=== PATIENT | female | born 1960 | race Caucasian/White ===

== ENCOUNTER 2020-04-27 07:25 | Emergency (ER) | payer MEDICARE, SELFPAY ==
[2020-04-27] VITALS (14 sets, daily range): BP systolic 101–165; BP diastolic 65–101; PULSE 100; RESP 9–29; TEMP 36.7; O2SAT 91–100
--- NOTE | ~2020-04-27 | XR_ITS ---
EXAMINATION: XR chest 2V DATE: 04/27/2020 08:14 INDICATION: Fall. Weakness. TECHNIQUE: frontal and lateral views of the chest were obtained. COMPARISON: Chest radiograph dated 05/06/2017 FINDINGS: The lungs remain clear with no focal airspace opacities, pulmonary edema, pleural effusion or pneumot horax. The cardiomediastinal silhouette is normal. Focal midthoracic kyphosis centered at a chronic m idthoracic burst fracture with complete anterior vertebral body height loss. IMPRESSION: 1. No acute cardiopulmonary disease. Reviewed, dictated and finalized at location A. MATIC DATA PROCESSING PLANNER
--- NOTE | ~2020-04-27 | CT_ITS ---
EXAMINATION: CT brain wo con DATE: 04/27/2020 08:10 INDICATION: Fall. Weakness. TECHNIQUE: Computed tomography (CT) of the head was performed without intravenous contrast. Sagittal and coronal reconstructions were performed. The mA was adjusted according to patient size. Iterative reconstruction technique was employed. The dose-length product was 681.00 mGy-cm. COMPARISON: head CT dated 11/01/2018 FINDINGS: No fracture. No acute intracranial hemorrhage, acute infarction or abnormal extra axial fluid collect ion. There is mild scattered white matter hypoattenuation consistent with chronic small vessel ischem ic disease. Ventricles are normal and symmetric. No mass/mass effect. Chronic opacification of the le ft sphenoid sinus with thickened sclerotic [place] consistent with chronic sinusitis. There is some muc osal thickening posteriorly in the bilateral ethmoid sinuses. The orbits and mastoid air cells are no rmal. IMPRESSION: 1. No fracture or acute intracranial process. 2. Mild scattered white matter hypoattenuation consistent with chronic small vessel ischemic disease. Reviewed, dictated and finalized at location A. ICAL DAMAGE APPRAISER IMPRESSION: 1. No fracture or acute intracranial process. 2. Mild scattered white matter hypoattenuation consistent with chronic small ve ssel ischemic disease.
--- NOTE | ~2020-04-27 | CT_ITS ---
EXAMINATION: CT cervical spine wo con, CT thoracic lumbar wo con DATE: 04/27/2020 08:11 INDICATION: Fall. Weakness. TECHNIQUE: 1. Computed tomography (CT) of the cervical spine was performed without intravenous contrast. Automat ed exposure control and iterative reconstruction technique were employed. The dose-length product was 252.53 mGy-cm. 2. CT of the thoracic spine was performed without intravenous contrast. Automated exposure control an d iterative reconstruction technique were employed. The dose-length product was 1697.25 mGy-cm. COMPARISON: Several spine CT dated 11/01/2018, two-view chest radiograph dated 05/06/2017 and lumbar spi ne MR dated 09/26/2010 FINDINGS: Cervical spine: Mild levocurvature at the lower cervical spine, previously and mild dextrocurvature suggesting this i s positional. Sagittal alignment is normal. Vertebral body and disc heights are normal. No fracture. No significant interval change in mild cervical spondylosis with no central canal stenosis. See prior report for level by level analysis. Cervical soft tissues are unremarkable. Thoracic spine: Mild thoracic levocurvature. Focal kyphosis centered at a chronic T8 burst fracture with essentially complete anterior to central vertebral body height loss. There is 60% height loss along the posterior wall which is also retropulsed approximately 4 mm resulting in mild central canal stenosis at this l evel. These findings do not appear significantly changed when compared with the chest radiograph from 3 years prior. Also unchanged is a less severe T12 compression fracture with 20% vertebral body heig ht loss anteriorly and more prominent central endplate depression resulting in 40% central vertebral body height loss. No acute fractures. Disc heights are normal. There is moderate bilateral neural for aminal stenosis at T8-T9 resulting from the T8 burst fracture. Mild neural foraminal stenosis bilater ally at a few additional levels in the mid thoracic spine. Paravertebral soft tissues are unremarkabl e. Mild discoid atelectasis in the right lower lobe. No other evident lung disease, pleural effusion or pneumothorax. Lumbar spine: Alignment is normal. There are multiple lumbar fractures which are new since 2010 but with chronic ap pearance. No acute appearing fractures identified. These include a compression fracture with 20% ante rior vertebral body height loss at L2 and L3, L4 and L5 burst fractures with central superior endplat e depression resulting in 20% central vertebral body height loss at each level. There is 2-3 mm retro pulsion of the cephalad aspect of the posterior salinas of L3 and L4 and 3 mm retropulsion of the cepha lad aspect of the posterior wall of L5. This results in mild central canal stenosis at each of these levels. There is also multilevel mild bilateral neural foraminal stenosis. A few nonobstructing left renal stones, the largest measuring 5 mm. Cholecystectomy clips at the gallbladder fossa. Nonspecific high attenuation material at the tip of the cecum. A couple surgical clips in the left hemipelvis. IMPRESSION: 1. Mild spondylosis throughout the cervical, thoracic and lumbar spine with several chronic compressi on and burst fractures in the thoracic and lumbar spine is detailed above. No acute osseous abnormali ty. Reviewed, dictated and finalized at location A. ER IMPRESSION: 1. Mild spondylosis throughout the cervical, thoracic and lumbar spine with sev eral chronic compression and burst fractures in the thoracic and lumbar spine i s detailed above. No acute osseous abnormality.
--- NOTE | 2020-04-27 07:30 | ED.FALL ---
HPI - Fall General Chief Complaint: Fall Stated Complaint: weakness Time Seen by Provider: 04/27/20 07:30 Source: patient and EMS Mode of arrival: EMS Limitations: no limitations History of Present Illness HPI Narrative: Patient is a 59-year-old female with a history of severe anxiety, hypothyroidism, chronic anemia, HIV medicine physicians at [facility], who presents for evaluation of fall 2 days ago and subsequent weakness. Patient states she fell while ascending some steps a couple of days ago, hitting her head on the ground, and since has had headache, neck pain and arm weakness. 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 Patient states her significant pain when she tries to move her arms. She has been able to ambulate at home over the past couple of days but due to pain becoming so severe today wanted to be evaluated thus called EMS who brought her to our facility. Patient states her HIV is managed at [facility] and she has an undetectable viral load. She denies any chest pain, abdominal pain, nausea or vomiting. She does report some lower back pain and neck pain that is dull and aching in nature and worse with movement. She denies any taking any anticoagulation. Related Data Allergies Allergy/AdvReac Type Severity Reaction Status Date / Time latex Allergy Mild Rash Verified 04/27/20 07:41 Sulfa (Sulfonamide Allergy Mild HIVES, RASH Verified 04/27/20 07:41 Antibiotics) morphine Allergy Unknown Nausea and Verified 04/27/20 07:41 Vomiting Review of Systems Review of Systems: Narrative: CONSTITUTIONAL: Denies fever EYES: Denies visual changes, redness, or discharge. ENT: Denies rhinorrhea, congestion CARDIOVASCULAR: Denies chest pain RESPIRATORY: Denies cough or dyspnea. GASTROINTESTINAL: Denies abdominal pain, nausea, vomiting, or diarrhea. GENITOURINARY: Denies dysuria or hematuria. SKIN: Denies rash or itching. MUSCULOSKELETAL: Denies back pain, joint pain, or myalgia. NEUROLOGIC: Reports headache and feeling diffusely weak PSYCHIATRIC: Reports anxiety PMFSH Past Medical History Medical History (Updated 04/27/20 @ 10:29 by Rosa Sandoval MD) Anemia Anxiety Arthritis HIV (human immunodeficiency virus infection) Hypothyroidism Melena Migraine headache Nephrolithiasis Surgical History Surgical History (Updated 04/27/20 @ 07:43 by Rosa Sandoval MD) H/O: hysterectomy History of appendectomy Hx of cholecystectomy Social History Social History (Updated 04/27/20 @ 07:43 by Rosa Sandoval MD) Smoking status: Unknown if ever smoked Alcohol intake: never Substance use: never Gender identity (if verbalized by the patient): Female Exam Narrative: Exam Narrative: Nursing note and vitals reviewed. CONSTITUTIONAL: The patient appears well-developed and well-nourished. No distress. HEAD: Normocephalic and atraumatic. EYES: PERRL, EOMI, normal conjunctiva, anicteric EARS: External ears clear bilaterally, no hemotympanum MOUTH: OP clear, no erythema, exudates NECK: midline trachea, supple, FROM. Positive midline cervical spinal tenderness without step-offs or deformities. Tenderness of bilateral trapezius muscles. CARDIOVASCULAR: Normal rate, regular rhythm, normal heart sounds and intact distal pulses. No murmurs, rubs, gallops. PULMONARY: Effort normal and breath sounds normal. No respiratory distress. The patient has no wheezes, rales, rhonchi. No chest wall tenderness, crepitus or ecchymoses. ABDOMINAL: Soft. Nontender, nondistended. No palpable masses Thorax: Positive midline thoracic and lumbar tenderness, no step-offs or deformities, no ecchymoses EXTREMITIES: Patient has spontaneous movement in all extremities. -RUE: No deformity. Decreased range of motion at the shoulder, elbow and wrist due to pain. Normal range of motion in the hand. Sensation intact M/U/R. Pulse 2+. Heel Seat Flap Stapler strength 5 out of 5. -LUE: No deformity. Decreased range
--- NOTE | 2020-04-27 07:35 | ECG_ITS ---
Measurements Intervals [place] Rate: 94 P: 66 MS: 162 QRS: 39 QRSD: 73 T: 60 QT: 338 QTc: 424 Interpretive Statements SINUS RHYTHM EARLY PRECORDIAL R/S TRANSITION LOW QRS VOLTAGE IN PRECORDIAL LEADS BASELINE ARTIFACT- I, II, III, AVR, AVL, AVF, V5-V6 BORDERLINE ECG Electronically Signed On 04-27-2020 10:03:02 SUPERVISOR EDUCATION by Akhil Lindo D.O.
--- NOTE | 2020-04-27 08:10 | PC.NURSE ---
received report from Evy TOWNSEND. patient here after ground level fall 2 days ago. patient went to CT of head and is now back in room. this RN to bedside. placed patient on lunchroom monitor. patient is uncooperative at times. yelling and cussing at staff. patient advised that her behavior is inappropriate. this RN attempted to establish IV access x1 but patient yelling and wanted it pulled out. labs can be drawn with straight stick. patient advised she will be getting PO meds only then.
--- NOTE | 2020-04-27 08:20 | PC.NURSE ---
assisted patient to use BSC. states that she cannot ambulate to restroom due to knee pain and back pain. patient still uncooperative at times.
[2020-04-27] MEDS: oxyCODONE/ACETAMINOPHEN (*CRX) 5-325 MG TABLET 1 TABLET PO (08:35)
--- NOTE | 2020-04-27 08:40 | PC.NURSE ---
PO pain med given. warm blanket and pillow given. call light in reach.
[2020-04-27 08:46] LABS: Basophils Absolute Auto 0.1 K/mm3 (0.0-0.1); Basophils Percent Auto 0.7 % (0.2-1.2); Eosinophils Absolute Auto 0.1 K/mm3 (0-0.3); Eosinophils Percent Auto 1.4 % (0-4.4); Hematocrit 34.7 % (37.0-47.0); Hemoglobin 10.9 g/dL (12.0-15.0); Immature Granulocyte Absolute 0.03 K/mm3 (0.00-0.031); Immature Granulocyte Percent A 0.4 % (0-0.5); Lymphocytes Absolute Auto 1.98 K/mm3 (0.9-3.2); Lymphocytes Percent Auto 27.2 % (18.3-44.2); Mean Corpuscular HGB Conc 31.4 g/dl (32-36); Mean Corpuscular Hemoglobin 25.2 pg (26-34); Mean Corpuscular Volume 80.3 fl (80-100); Mean Platelet Volume 9.2 fl (7.4-10.4); Monocytes Absolute Auto 0.7 K/mm3 (0.1-0.6); Monocytes Percent Auto 9.6 % (2.6-8.5); Neutrophils Absolute Auto 4.4 K/mm3 (1.3-6.7); Neutrophils Percent Auto 60.7 % (45.5-73.1); Platelet Count Result 381 k/mm3 (150-375); Red Blood Count 4.32 M/mm3 (4.2-5.4); Red Cell Distribution Width 18.9 % (11.5-14.5); White Blood Count 7.3 K/mm3 (4.5-10.0)
[2020-04-27 08:55] LABS: Prothrombin Time 13.4 Seconds (11.1-14.7)
[2020-04-27 08:56] LABS: Partial Thromboplastin Time 33.7 SECONDS (22.3-36.8)
[2020-04-27 09:03] LABS: Alanine Aminotransferase 21 U/L (4-35); Albumin Level 4.1 g/dL (3.5-5.1); Alkaline Phosphatase 80 U/L (38-126); Anion Gap 9 mmol/L (8-16); Aspartate Amino Transferase 26 U/L (14-36); Bilirubin,Total 0.4 mg/dL (0.2-1.3); Blood Urea Nitrogen 15 mg/dL (7-17); Calcium 9.4 mg/dL (8.4-10.2); Carbon Dioxide 28 mmol/L (22-30); Chloride 100 mmol/L (98-107); Creatine Kinase 27 U/L (30-135); Estimated CRCL calculation 52 ml/min; Estimated Glomerular Filt Rate 50; Glucose 100 mg/dL (65-105); Potassium 3.9 mmol/L (3.4-5.0); Sodium 137 mmol/L (137-145)
--- NOTE | 2020-04-27 10:45 | PC.NURSE ---
provider at bedside. patient needs to be transferred to [place] [facility] due to compression fractures of spine. patient aware. patient advised she needs IV access prior to transfer. patient yelling and cussing. advised with have ultrasound trained RN to establish line. patient continues to ask for pain medication. advised she has to have IV in first due to order for Dilaudid. patient still yelling at times.
--- NOTE | 2020-04-27 11:17 | PC.NURSE ---
[facility] accepted transfer to [place] [address] Trip # [id number]
[2020-04-27] MEDS: HYDROmorphone HCL INJ (*CRX) 1 MG/ML SYR 0.5 MG IV PUSH (11:38)
--- NOTE | 2020-04-27 11:44 | PC.NURSE ---
SL inserted by Todd TOWNSEND. dilaudid given as ordered. waiting for transfer to [place]. will check with chief unit forester for ETA.
--- NOTE | 2020-04-27 13:26 | PC.NURSE ---
patient keeps putting call light on. wants to know when she is being transferred to [place]. patient has been advised several times that EMS is very busy. it can take up to several hours for an available ambulance to provide non-emergent transfers.
--- NOTE | 2020-04-27 14:29 | PC.NURSE ---
patient continues to make statements about time for ambulance to arrive for transfer. explained again that emergent calls and 911 calls will take provider over her non-emergent transfer to [place]. wants pain meds. refuses to use BSC alone but wants RN to black powder glazing operator room. call light in reach.
[2020-04-27] MEDS: oxyCODONE HCL (*CRX) 5 MG TAB IR PO (14:38)
--- NOTE | 2020-04-27 14:39 | PC.NURSE ---
[facility] here to transport patient to [facility]. report given. copy of patient's chart given. patient medicated as ordered prior to transfer. alert. oriented. denies any other needs prior to discharge. patient's clothing and purse sent with patient.
== END 2020-04-27 14:40 | disposition short-term general hospital (02) ==
PROVIDERS: Emergency Provider Emergency Medicine; PCP Physician Assistant
DX: S22.061A Stable burst fracture of T7-T8 vertebra, initial encounter for closed fracture (principal); S32.041A Stable burst fracture of fourth lumbar vertebra, initial encounter for closed fracture; S32.051A Stable burst fracture of fifth lumbar vertebra, initial encounter for closed fracture; M48.54XA Collapsed vertebra, not elsewhere classified, thoracic region, initial encounter for fracture; M48.56XA Collapsed vertebra, not elsewhere classified, lumbar region, initial encounter for fracture; E03.9 Hypothyroidism, unspecified; M19.90 Unspecified osteoarthritis, unspecified site; Z21 Asymptomatic human immunodeficiency virus [HIV] infection status; Z87.442 Personal history of urinary calculi; R94.31 Abnormal electrocardiogram [ECG] [EKG]; M47.812 Spondylosis without myelopathy or radiculopathy, cervical region; M47.814 Spondylosis without myelopathy or radiculopathy, thoracic region; M47.816 Spondylosis without myelopathy or radiculopathy, lumbar region; W10.9XXA Fall (on) (from) unspecified stairs and steps, initial encounter
CPT/HCPCS: 36415; 70450; 71046; 72125; 72128; 72131; 80053; 82550; 85025; 85610; 85730; 93005; 96374; 99285; A9270; J1170

== ENCOUNTER 2020-05-02 17:51 | Observation (INO) | payer MEDICARE, SELFPAY ==
--- NOTE | ~2020-05-02 | CT_ITS ---
EXAMINATION: CT brain wo con EXAM DATE: 05/02/2020 18:40 INDICATION: Multiple falls, head injury. Jaw pain. TECHNIQUE: Spiral CT of the head was performed without contrast. Axial, coronal and sagittal images were reviewed. The dose-length product (DLP) for this examination was 402.45 mGy-cm. The exposure w as tailored according to patient size, and iterative reconstruction (ASIR) was used as additional dos e reduction technique. Comparison is made to prior examination from 04/27/2020. FINDINGS: There is no acute intraparenchymal hemorrhage. No evidence of intraparenchymal brain mass lesion. No evidence of acute infarction. Please note that initial head CT has limited sensitivity f or small or acute infarctions. There is mild periventricular and subcortical hypodensity, nonspecific but probably related to small vessel ischemic disease. There is mild prominence of the sulci and v entricles related to cerebral atrophy. There is intracranial carotid arteriosclerosis. There are n o extra-axial collections. There is no mass effect or midline shift. The orbits are unremarkable. Soft tissue is unremarkable. Chronically opacified left sphenoid sinus, could be a mucocele or polyp wall thickening. IMPRESSION: 1. No acute intracranial findings. 2. Chronic age related findings. Reviewed, dictated and finalized at location A. BALL PITCHER
--- NOTE | ~2020-05-02 | CT_ITS ---
EXAMINATION: CT facial & cervical spine wo EXAM DATE: 05/02/2020 18:40 INDICATION: TECHNIQUE: Spiral CT of the facial bones was acquired in the axial plane. Coronal reformatted images were also reviewed. Spiral CT of the cervical spine was performed without contrast. Axial images we re reviewed. Coronal and sagittal reformatted images were also reviewed. The dose-length product (DL P) for this examination was 402.45 mGy-cm. The exposure was tailored according to patient size, and iterative reconstruction (ASIR) was used as additional dose reduction technique. Comparison is made t o prior examination from 04/27/2020. FINDINGS: FACIAL CT: There are no displaced acute nasal bone fractures. The mandible, sinuses and orbits are i ntact. The orbits, globes and extraocular muscles are unremarkable. Completely chronically opacif ied left sphenoid sinus with wall thickening, chronic sinusitis. CERVICAL CT: There is no evidence of acute cervical fracture. The odontoid process is intact. Pre-d ens space is normal. Prevertebral soft tissue is normal. There are no soft tissue abnormalities tonja ntified. There is no disc space widening or traumatic vertebral body subluxation suspected. Mild ce rvical disc disease. Moderate arthropathy. A detailed level by level evaluation of spondylosis can b e added as addendum if requested. IMPRESSION: 1. No acute facial or cervical fracture. Reviewed, dictated and finalized at location A. DENTIAL CASE MANAGER
--- NOTE | ~2020-05-02 | CT_ITS ---
EXAMINATION: CT thoracic lumbar wo con EXAM DATE: 05/02/2020 18:40 INDICATION: Recent falls and recent fractures. Back pain. TECHNIQUE: Spiral CT thoracolumbar spine was performed without contrast. Axial, coronal and sagittal images of the thoracic spine were reviewed. Axial, coronal and sagittal images of the lumbar spine we re reviewed. The dose-length product (DLP) for this examination was 402.45 mGy-cm. The exposure was tailored according to patient size (auto mA exposure control), and iterative reconstruction (ASIR) wa s used as additional dose reduction technique. Comparison is made to prior examination from 04/27/2020. FINDINGS: THORACIC SPINE: There are no acute fractures identified. Again there is chronic severe burst fractu re of T8 with 4 mm retropulsion causing mild central canal stenosis. There is mild to moderate chroni c appearing compression fracture of T12 and several minimal upper thoracic compression fractures whic h also appear chronic. These appear unchanged compared to prior study. There is moderate bilateral ne ural foraminal stenosis at T8-9. Paraspinal soft tissue is unremarkable. LUMBAR SPINE: There is no evidence of acute lumbar fracture. There is mild to moderate chronic compr ession fracture at T12, L3, L4 and L5 vertebral bodies, appearance is unchanged. Mild chronic naty marlon fracture of L2. There is no disc space widening or traumatic vertebral body subluxation suspecte d. Paraspinal soft tissue is unremarkable. Moderate to severe facet arthropathy of the lower lumbar spine. A detailed level by level evaluation of spondylosis can be added as addendum if requested. IMPRESSION: 1. No acute thoracolumbar findings. 2. Chronic thoracolumbar compression fractures unchanged. Reviewed, dictated and finalized at location A. RECOVERY
--- NOTE | ~2020-05-02 | XR_ITS ---
EXAMINATION: XR shoulder RT min 2V EXAM DATE: 05/02/2020 22:41 INDICATION: Fell at home, right shoulder pain. Initial encounter. TECHNIQUE: The following right shoulder projections obtained: frontal projection with internal rotati on, frontal projection with external rotation, Grashey, and scapular Y view (4+ views). There is no prior study for comparison. FINDINGS: No evidence of right shoulder rotator cuff calcific tendinosis. There is mild right shou lder primary osteoarthritis. There are no acute fractures or dislocations identified. There may be se veral old right rib fractures anteriorly. There is no subcutaneous gas. The soft tissue is unremarka ble. There are no radiopaque foreign bodies. IMPRESSION: 1. Right shoulder exam without acute osseous findings. Reviewed, dictated and finalized at location G. [employer]
--- NOTE | ~2020-05-02 | XR_ITS ---
EXAMINATION: XR hip BI 2V w AP pelvis EXAM DATE: 05/02/2020 18:50 INDICATION: Fall, bilateral hip pain. TECHNIQUE: Each hip imaged independently (separate right and also left hip) 'frog leg' and frontal p rojections for interpretation. Frontal projection pelvis. Comparison is made to prior examination fr 11/01/2018. FINDINGS: No radiographic evidence of hip avascular necrosis. There is mild symmetric bilateral hip primary osteoarthritis. There are no prior studies for comparison. There are no acute fractures or d islocations identified. There is no subcutaneous gas. The soft tissue is unremarkable. There are no radiopaque foreign bodies. IMPRESSION: No acute osseous findings. Reviewed, dictated and finalized at location A. MASTER IMPRESSION: No acute osseous findings.
[2020-05-02 17:59] VITALS: BP 102/64; PULSE 99; RESP 15; TEMP 36.3; O2SAT 99
--- NOTE | 2020-05-02 18:01 | ED.FALL ---
HPI - Fall General Chief Complaint: Fall Stated Complaint: FALL Time Seen by Provider: 05/02/20 18:01 Source: patient and EMS Mode of arrival: EMS Limitations: no limitations History of Present Illness HPI Narrative: Patient is a 59-year-old female with a history of HIV, hepatitis C, recent history of fall, transfer to [facility] for thoracic and lumbar fractures, who presents for evaluation of recurrent falls at home. Patient states she again fell down her stairs 2 days ago hitting her head and jaw. She denied loss of consciousness at that time. Patient states that then today she slipped while in the shower hitting her head again. Patient states that she is not able to get around safely at home to the amount of steps in her apartment. She has no children that live close and no family that is able to assist her. She reports mild headache pain and neck pain. She reports back pain which is chronic. I inquired about her admission at [facility] and she states that she was kept inpatient for 2-3 nights and then discharged home. Patient was not fitted for any vertebral brace. Related Data Allergies Allergy/AdvReac Type Severity Reaction Status Date / Time latex Allergy Mild Rash Verified 05/02/20 18:05 Sulfa (Sulfonamide Allergy Mild HIVES, RASH Verified 05/02/20 18:05 Antibiotics) morphine AdvReac Unknown Nausea and Verified 05/02/20 18:15 Vomiting Review of Systems Review of Systems: Narrative: CONSTITUTIONAL: Denies fever, chills, or sweats. EYES: Denies visual changes ENT: Denies rhinorrhea, congestion CARDIOVASCULAR: Denies chest pain RESPIRATORY: Reports mild cough GASTROINTESTINAL: Denies abdominal pain, nausea, vomiting, or diarrhea. GENITOURINARY: Denies dysuria or hematuria. SKIN: Denies rash or itching. MUSCULOSKELETAL: Reports back pain, jaw pain, hip pain NEUROLOGIC: Denies headache, numbness PMFSH Past Medical History Medical History (Updated 05/02/20 @ 21:10 by Rosa Sandoval MD) Anemia Anxiety Arthritis HIV (human immunodeficiency virus infection) Hypothyroidism Melena Migraine headache Nephrolithiasis Surgical History Surgical History (Updated 04/27/20 @ 07:43 by Rosa Sandoval MD) H/O: hysterectomy History of appendectomy Hx of cholecystectomy Social History Social History (Updated 04/27/20 @ 07:43 by Rosa Sandoval MD) Smoking status: Unknown if ever smoked Alcohol intake: never Substance use: never Gender identity (if verbalized by the patient): Female Exam Narrative: Exam Narrative: Nursing note and vitals reviewed. CONSTITUTIONAL: The patient appears well-developed and well-nourished. No distress. HEAD: Normocephalic and atraumatic. Bite in alignment. EYES: PERRL, EOMI, normal conjunctiva, anicteric EARS: External ears clear bilaterally, no hemotympanum MOUTH: OP clear, no erythema, exudates NECK: midline trachea, supple, FROM. Positive paraspinal cervical spinal tenderness. No midline tenderness. CARDIOVASCULAR: Normal rate, regular rhythm, normal heart sounds and intact distal pulses. No murmurs, rubs, gallops. PULMONARY: Effort normal and breath sounds normal. No respiratory distress. The patient has no wheezes, rales, ronchi. No chest wall tenderness, crepitus or ecchymoses. ABDOMINAL: Soft. Nontender, nondistended. No palpable masses EXTREMITIES:: moving all extremities symmetrically. Pelvis stable to anterior and lateral compression. -RUE: No deformity. Normal ROM at shoulder, elbow, wrist, and hand. Sensation intact M/U/R. Pulse 2+. -LUE: No deformity. Normal ROM at shoulder, elbow, wrist, and hand., Sensation intact M/U/R. Pulse 2+ -RLE: No deformity. Normal ROM at hip, knee, ankle. Sensation intact distally. -LLE: No deformity. Normal ROM at hip, knee, ankle. Sensation intact distally. NEUROLOGY: The patient is alert and oriented to person, place, and time. CN II-XII Course Vital Signs Vital signs: Vital Signs [place]
[2020-05-02] MEDS: oxyCODONE/ACETAMINOPHEN (*CRX) 5-325 MG TABLET 2 TABLET PO (18:19)
--- NOTE | 2020-05-02 18:19 | PC.NURSE ---
Pt to CT scan via stretcher.
[2020-05-02 18:21] LABS: Basophils Percent Auto 0.6 % (0.2-1.2); Eosinophils Absolute Auto 0.1 K/mm3 (0-0.3); Hematocrit 33.4 % (37.0-47.0); Hemoglobin 10.7 g/dL (12.0-15.0); Immature Granulocyte Absolute 0.02 K/mm3 (0.00-0.031); Immature Granulocyte Percent A 0.3 % (0-0.5); Lymphocytes Absolute Auto 1.79 K/mm3 (0.9-3.2); Lymphocytes Percent Auto 25.4 % (18.3-44.2); Mean Corpuscular Volume 81.3 fl (80-100); Mean Platelet Volume 9.3 fl (7.4-10.4); Monocytes Absolute Auto 0.6 K/mm3 (0.1-0.6); Monocytes Percent Auto 7.9 % (2.6-8.5); Neutrophils Absolute Auto 4.6 K/mm3 (1.3-6.7); Neutrophils Percent Auto 64.8 % (45.5-73.1); Platelet Count Result 341 k/mm3 (150-375); Red Blood Count 4.11 M/mm3 (4.2-5.4); Red Cell Distribution Width 19.2 % (11.5-14.5); White Blood Count 7.1 K/mm3 (4.5-10.0)
[2020-05-02 18:33] LABS: Anion Gap 9 mmol/L (8-16); Blood Urea Nitrogen 17 mg/dL (7-17); Calcium 9.8 mg/dL (8.4-10.2); Carbon Dioxide 29 mmol/L (22-30); Chloride 99 mmol/L (98-107); Estimated CRCL calculation 53 ml/min; Estimated Glomerular Filt Rate 50; Glucose 117 mg/dL (65-105); Potassium 3.6 mmol/L (3.4-5.0); Sodium 137 mmol/L (137-145)
[2020-05-02 19:15] VITALS: BP 139/92; PULSE 99; RESP 19; O2SAT 99
[2020-05-02 20:12] VITALS: BP 126/95; PULSE 100; RESP 18; O2SAT 97
[2020-05-02 22:00] VITALS: BP 117/85
--- NOTE | 2020-05-02 22:07 | PM.IMHP ---
H&P: HPI History of Present Illness Date/Time: 05/02/20 22:07 Chief Complaint: Ambulatory dysfunction Narrative: This is this is a 59-year-old female with known history of HIV+ who was recently just admitted and discharged from [facility] approximately 3 days ago where she was treated for pneumonia and a UTI. Since going home the patient has had increased generalized weakness and multiple falls. she has had a hard time because she has to go up 17 steps at home and reports that she fell down her stairs 2 days ago hitting her head and jaw. The patient has had right shoulder pain since then and reports that she also fell again today in the shower. The patient is known to live alone and does not have any family that lives close by to help her. She denies any significant fevers, chills, neck stiffness, chest pain, shortness of breath, cough, nausea, vomiting, diarrhea, abdominal pain, dysuria, hematuria, or rectal bleeding. The patient was evaluated emergency room today and routine labs were virtually unremarkable. We been asked to admit the patient to the hospital for physical therapy evaluation and possible detention home placement versus rehab. No other complaints. Review of Systems Review of Systems: All systems reviewed & are unremarkable except as noted in HPI and below PMFSH Past Medical History Medical History Anemia Anxiety Arthritis HIV (human immunodeficiency virus infection) Hypothyroidism Melena Migraine headache Nephrolithiasis Surgical History Surgical History H/O: hysterectomy History of appendectomy Hx of cholecystectomy Social History Social History Smoking status: Never smoker Alcohol intake: never Substance use: never Gender identity (if verbalized by the patient): Female Spiritual care concerns: No Comments Family medical history is reviewed and noncontributory. Meds Home Medications and Allergies Home Medications Medication Instructions Recorded Confirmed Type abacavir [Ziagen] 600 mg PO DAILY 05/02/20 05/02/20 History acetaminophen 1,000 mg PO Q6H PRN 05/02/20 05/02/20 History amlodipine 5 mg PO DAILY 05/02/20 05/02/20 History cyclobenzaprine 10 mg PO HS PRN 05/02/20 05/02/20 History darunavir ethanolate [Prezista] 800 mg PO DAILY 05/02/20 05/02/20 History diazepam 10 mg PO BID 05/02/20 05/02/20 History diclofenac sodium 1 ea TOPICAL QID PRN 05/02/20 05/02/20 History estradiol [Estrace] 1 mg PO DAILY 05/02/20 05/02/20 History etravirine 400 mg PO DAILY 05/02/20 05/02/20 History gabapentin 300 mg PO HS 05/02/20 05/02/20 History levothyroxine 150 mcg PO DAILY 05/02/20 05/02/20 History mirtazapine 15 mg PO HS 05/02/20 05/02/20 History ritonavir 100 mg PO DAILY 05/02/20 05/03/20 History Allergies Allergy/AdvReac Type Severity Reaction Status Date / Time latex Allergy Mild Rash Verified 05/02/20 22:52 Sulfa (Sulfonamide Allergy Mild HIVES, RASH Verified 05/02/20 22:52 Antibiotics) morphine AdvReac Unknown Nausea and Verified 05/02/20 22:52 Vomiting Vital Signs Vital Signs - 24 hr 05/02/20 17:59 05/02/20 19:15 05/02/20 20:12 Temperature 36.3 C L Pulse Rate 99 99 100 Respiratory Rate 15 19 18 Blood Pressure 102/64 139/92 H 126/95 H Pulse Oximetry 99 99 97 05/02/20 22:00 Temperature Pulse Rate Respiratory Rate Blood Pressure 117/85 Pulse Oximetry Exam Const: General: cooperative, no acute distress, alert and awake Nutritional Appearance: well nourished Orientation/consciousness: patient oriented x3 HENMT: Head: normal to inspection General nose exam: Normal external nose present Face and sinus: normal facial exam Mouth: Yes Normal oral and palatal mucosa present and Yes oropharynx normal Eyes: Pupils: Equal, round and reactive pupils present EOM: EOMs intact vito
--- NOTE | 2020-05-02 22:32 | ADMGEN ---
This patient, Yashira Vazquez, was admitted to Medical Room 243-01. Patient/family oriented to hospital policies and general routines including ID bracelet, bed and alarms, visiting hours, pain management, procedures, bathroom and other care routines, personal items, smoking policy, room service/diet, and visiting hours. Information on how to activate the Rapid Response Team has been discussed. Patient/Family are encouraged to report perceived risks to care and to ask questions if they do not understand what they are told or what they should do.
[2020-05-02 23:06] VITALS: BMI 23.6
[2020-05-02 23:07] VITALS: BP 137/80; PULSE 104; RESP 20; TEMP 36.3; O2SAT 100
[2020-05-03 00:30] LABS: Add Urine Microscopic? YES; Appearance Urine Cloudy (Clear); Bacteria Urine Trace /hpf; Bilirubin Urine Negative (Negative); Blood Urine Negative (Negative); Color Urine Yellow (Yellow); Glucose Urine UA Negative (Negative); Ketones Urine Negative (Negative); Leukocyte Esterase Ur 3+ LEU/UL (Negative); Mucus Urine Few /lpf; Nitrate Urine Positive (Negative); Protein Urine Negative (Negative); Specific Grav Ur 1.014 (1.001-1.035); Squamous Epithelial Cell Urine Many /hpf (Few); Urobilinogen Urine Negative mg/dL (<2.0); WBC Urine >75 /hpf
[2020-05-03] MEDS: SODIUM CHLORIDE 0.9% IV 1,000 ML 100 ML IV CONT ×2 (00:54→09:18)
[2020-05-03] MEDS: HYDROcodone/acetaminophen (*CRX) 5-325 MG TABLET 2 TAB PO (00:57)
--- NOTE | 2020-05-03 01:58 | PC.NURSE ---
Addendum entered by Raji Emanuel RN 05/03/20 02:10: Time of notification/precautions MD Tia to determine if suicide precautions are necessary. Original Note: Dr. Mas notified pt is high risk for suicide following [facility] suicide assessment. Pt states she no longer has intentions of suicide nor will she in the future. Pt is placed on suicide precautions at this time, all items removed from room and sitter is at the bedside.
--- NOTE | 2020-05-03 02:41 | PC.NURSE ---
Pt removed from suicide precautions at this time, Dr Mas has deemed the pt not at risk for self harm at this time. Sitter no longer at bedside and items returned to room. Pt currently sleeping in bed.
[2020-05-03 04:42] VITALS: BP 100/69; PULSE 68; RESP 16; TEMP 36.1; O2SAT 94
[2020-05-03 05:57] LABS: Basophils Percent Auto 0.6 % (0.2-1.2); Eosinophils Absolute Auto 0.1 K/mm3 (0-0.3); Eosinophils Percent Auto 1.8 % (0-4.4); Hematocrit 33.3 % (37.0-47.0); Hemoglobin 10.4 g/dL (12.0-15.0); Immature Granulocyte Absolute 0.03 K/mm3 (0.00-0.031); Immature Granulocyte Percent A 0.4 % (0-0.5); Lymphocytes Absolute Auto 1.84 K/mm3 (0.9-3.2); Lymphocytes Percent Auto 27.5 % (18.3-44.2); Mean Corpuscular HGB Conc 31.2 g/dl (32-36); Mean Corpuscular Hemoglobin 25.7 pg (26-34); Mean Corpuscular Volume 82.4 fl (80-100); Mean Platelet Volume 9.3 fl (7.4-10.4); Monocytes Absolute Auto 0.7 K/mm3 (0.1-0.6); Monocytes Percent Auto 10.9 % (2.6-8.5); Neutrophils Absolute Auto 3.9 K/mm3 (1.3-6.7); Neutrophils Percent Auto 58.8 % (45.5-73.1); Platelet Count Result 326 k/mm3 (150-375); Red Blood Count 4.04 M/mm3 (4.2-5.4); Red Cell Distribution Width 19.3 % (11.5-14.5); White Blood Count 6.7 K/mm3 (4.5-10.0)
[2020-05-03 06:16] LABS: Anion Gap 6 mmol/L (8-16); Blood Urea Nitrogen 19 mg/dL (7-17); Calcium 8.9 mg/dL (8.4-10.2); Carbon Dioxide 27 mmol/L (22-30); Chloride 104 mmol/L (98-107); Estimated CRCL calculation 48 ml/min; Estimated Glomerular Filt Rate 46; Glucose 99 mg/dL (65-105); Potassium 3.8 mmol/L (3.4-5.0); Sodium 137 mmol/L (137-145)
[2020-05-03] MEDS: ACETAMINOPHEN 325 MG TABLET 650 MG PO ×2 (06:57→14:34)
[2020-05-03] MEDS: LEVOTHYROXINE SODIUM 150 MCG TABLET PO (06:59)
--- NOTE | 2020-05-03 07:07 | PC.NURSE ---
Addendum entered by Claire Veloz RN 05/03/20 07:43: Note entered by previous RN on wrong patient. Patient not in OR. Original Note: To OR per [ bed], IV [Right Forearm ]. Report given to [Elodia ].
[2020-05-03 09:17] VITALS: BP 108/76
[2020-05-03] MEDS: estradioL 1 MG TABLET PO (09:20)
[2020-05-03] MEDS: diazePAM (*CRX) 5 MG TABLET 10 MG PO (09:27)
[2020-05-03] MEDS: HYDROcodone/acetaminophen (*CRX) 5-325 MG TABLET 1 TAB PO ×4 (09:27→23:46)
--- NOTE | 2020-05-03 10:52 | PM.IMPN ---
Progress Note: A&P Assessment and Plan (1) Ambulatory dysfunction: Code(s): R26.2 - Difficulty in walking, not elsewhere classified Status: Acute Assessment and Plan: Patient has had multiple falls and was recently in the emergency room on 04/27/2019 and was transferred to [place] for further evaluation since her HIV provider is located there. Patient was treated for a UTI and pneumonia then discharged home a few days ago with some pain medications and antibiotics. Since being home she reports a few more falls and weakness. Urinalysis was abnormal for potential UTI so she was started on IV ceftriaxone Urine cultures were reflux and pending Have physical and occupational therapy work with her and plan for discharge in a few days We will obtain her most recent hospitalization records from [facility] from this week. (2) Falls frequently: Code(s): R29.6 - Repeated falls Status: Acute Assessment and Plan: fall precaution. Working with PT OT Care coordination working on discharge planning (3) Right shoulder pain: Qualifiers: Chronicity: acute Qualified Code(s): M25.511 - Pain in right shoulder Code(s): M25.511 - Pain in right shoulder Status: Acute Assessment and Plan: Secondary to acute trauma from falling. Shoulder x-ray was negative for acute fracture. Will have her work with PT OT. Continue pain control as needed. (4) Chronic back pain: Qualifiers: Back pain laterality: bilateral Back pain location: thoracic back pain Qualified Code(s): M54.6 - Pain in thoracic spine; G89.29 - Other chronic pain Code(s): M54.9 - Dorsalgia, unspecified; G89.29 - Other chronic pain Status: Chronic Assessment and Plan: Continue pain control as needed. (5) HIV (human immunodeficiency virus infection): Qualifiers: HIV symptom status: unspecified Qualified Code(s): B20 - Human immunodeficiency virus [HIV] disease Code(s): B20 - Human immunodeficiency virus [HIV] disease Status: Chronic Assessment and Plan: Continue home medications if someone brings them from home. The patient's infectious disease doctors at [facility]. (6) Anemia: Qualifiers: Anemia type: unspecified type Qualified Code(s): D64.9 - Anemia, unspecified Code(s): D64.9 - Anemia, unspecified Status: Chronic Assessment and Plan: H&H appears to be stable with a hemoglobin of 10, hematocrit 33%. Likely secondary to chronic disease. No signs of acute blood loss. Monitor H&H, transfuse p.r.n.. (7) Hypothyroidism: Qualifiers: Hypothyroidism type: unspecified Qualified Code(s): E03.9 - Hypothyroidism, unspecified Code(s): E03.9 - Hypothyroidism, unspecified Status: Chronic Assessment and Plan: Continue home medications. (8) Depression: Code(s): F32.9 - Major depressive disorder, single episode, unspecified Status: Acute Assessment and Plan: The patient had an elevated score on nursing suicide precaution checklist. The patient verbalizes that she has had suicidal thoughts in the past although today she has no intention of hurting herself or killing herself. She also stated that she does not have any future plans to harm herself. Will continue monitoring while she is in the hospital, but I feel comfortable with her current mental status and she is alert and oriented x4. Time Spent With Patient Time with patient: 25 - 35 minutes Subjective Date/time seen: 05/03/20 10:
[2020-05-03 13:27] VITALS: BP 121/88; PULSE 100; RESP 89
[2020-05-03 14:00] VITALS: BP 137/75; PULSE 104; RESP 18; TEMP 36.7; O2SAT 98
[2020-05-03] MEDS: CYCLOBENZAPRINE HCL 10 MG TABLET PO ×2 (14:33→23:46)
[2020-05-03] MEDS: traMADol HCL (*CRX) 50 MG TABLET PO (19:51)
[2020-05-03] MEDS: GABAPENTIN 300 MG CAPSULE PO (19:51)
[2020-05-03] MEDS: MIRTAZAPINE 15 MG TABLET PO (19:51)
[2020-05-03 20:00] VITALS: PULSE 106; RESP 20; O2SAT 99
[2020-05-03 21:52] VITALS: BP 117/94; PULSE 106; RESP 20; TEMP 36.3; O2SAT 99
[2020-05-04] MEDS: LEVOTHYROXINE SODIUM 150 MCG TABLET PO (04:25)
[2020-05-04] MEDS: HYDROcodone/acetaminophen (*CRX) 5-325 MG TABLET 1 TAB PO ×2 (04:25→09:28)
[2020-05-04 05:00] VITALS: BP 126/84; PULSE 100; RESP 20; TEMP 36.4; O2SAT 98
[2020-05-04 05:56] LABS: Anion Gap 6 mmol/L (8-16); Blood Urea Nitrogen 19 mg/dL (7-17); Calcium 8.4 mg/dL (8.4-10.2); Carbon Dioxide 27 mmol/L (22-30); Chloride 101 mmol/L (98-107); Estimated CRCL calculation 56 ml/min; Estimated Glomerular Filt Rate 56; Glucose 95 mg/dL (65-105); Magnesium 1.7 mg/dL (1.6-2.3); Potassium 4.1 mmol/L (3.4-5.0); Sodium 134 mmol/L (137-145)
[2020-05-04] MEDS: amLODIPine BESYLATE 5 MG TABLET PO (09:29)
[2020-05-04] MEDS: estradioL 1 MG TABLET PO (09:29)
--- NOTE | 2020-05-04 11:30 | PM.DS ---
DS: Admitting Diagnosis Admitting Diagnosis Admitting Diagnosis: Fall DS: Discharge Diagnosis Discharge Diagnosis (1) Ambulatory dysfunction: Code(s): R26.2 - Difficulty in walking, not elsewhere classified Status: Acute (2) Falls frequently: Code(s): R29.6 - Repeated falls Status: Acute (3) Right shoulder pain: Qualifiers: Chronicity: acute Qualified Code(s): M25.511 - Pain in right shoulder Code(s): M25.511 - Pain in right shoulder Status: Acute (4) Chronic back pain: Qualifiers: Back pain laterality: bilateral Back pain location: thoracic back pain Qualified Code(s): M54.6 - Pain in thoracic spine; G89.29 - Other chronic pain Code(s): M54.9 - Dorsalgia, unspecified; G89.29 - Other chronic pain Status: Chronic Assessment and Plan: (5) HIV (human immunodeficiency virus infection): Qualifiers: HIV symptom status: unspecified Qualified Code(s): B20 - Human immunodeficiency virus [HIV] disease Code(s): B20 - Human immunodeficiency virus [HIV] disease Status: Chronic Assessment and Plan: (6) Anemia: Qualifiers: Anemia type: unspecified type Qualified Code(s): D64.9 - Anemia, unspecified Code(s): D64.9 - Anemia, unspecified Status: Chronic Assessment and Plan: (7) Hypothyroidism: Qualifiers: Hypothyroidism type: unspecified Qualified Code(s): E03.9 - Hypothyroidism, unspecified Code(s): E03.9 - Hypothyroidism, unspecified Status: Chronic Assessment and Plan: (8) Depression: Code(s): F32.9 - Major depressive disorder, single episode, unspecified Status: Acute DS: Summary Hospital Course Hospital Course: Patient is a 59-year-old woman with a history of HIV, who presented to the emergency department after she fell down her steps getting to her apartment. At [facility] for UTI and pneumonia and was discharged about 3 days ago with antibiotics to continue taking. She had some increased weakness and multiple falls and came to the emergency room for further evaluation. Initial vitals showed she was afebrile, heart rate 99, respiratory rate 15, blood pressure 102/64, oxygen saturation 100% on room air. Labs showed normal leukocytosis, normocytic anemia with a hemoglobin of 10 which remains stable, normal differential, BMP showing slight elevation creatinine 1.1, otherwise normal. UA showed positive nitrite, leukocyte 3+, wbc's greater than 75 and urine culture is growing ESBL E coli. Patient will be discharged home on Macrobid to continue for 7 days along with a probiotic to prevent diarrhea associated with antibiotic use. The patient did well with physical and occupational therapy and was independent. She is going to seek outpatient physical therapy for further strengthening. Patient understands and agrees with the plan all questions answered. While she was here her initial depression screening was high. The patient tells me today she is not suicidal or homicidal at this time. She does have depression which she has had for many years. She has not seen her primary care doctor in about 2 years. She has seen multiple counselors in the past but nothing recently. I explained to her the importance of seeing a primary care doctor within 1 week and trying to find a counselor or psychiatrist for further depression evaluation. Also while she was here she was found to have multiple pills in her bed on 2 different occasions. She states she does not know what pills with the bottom of her person denies taking any of them other than medications prescribed and given by us in hospital. She is going to be taking a taxi home today. I told her not to drive because you have given her narcotics and benzodiazepines. I would not prescribe her any of these medications other than antibiotics. I feel like she is medically stable denies SI or HI at this cherri
== END 2020-05-04 12:25 | disposition home or self-care (01) ==
LOC: ANHED 19:54 → ANH2MED 21:56
PROVIDERS: Admitting Provider Family Medicine; Emergency Provider Emergency Medicine; PCP Physician Assistant; Visit Provider Physician Assistant
DX: R26.2 Difficulty in walking, not elsewhere classified (principal); M25.511 Pain in right shoulder; M54.6 Pain in thoracic spine; D64.9 Anemia, unspecified; E03.9 Hypothyroidism, unspecified; F32.9 Major depressive disorder, single episode, unspecified; R51.9 Headache, unspecified; M48.55XA Collapsed vertebra, not elsewhere classified, thoracolumbar region, initial encounter for fracture; R53.1 Weakness; F41.9 Anxiety disorder, unspecified; R29.6 Repeated falls; M19.90 Unspecified osteoarthritis, unspecified site; Z79.899 Other long term (current) drug therapy; W18.2XXA Fall in (into) shower or empty bathtub, initial encounter; Z21 Asymptomatic human immunodeficiency virus [HIV] infection status
CPT/HCPCS: 36415; 70450; 70486; 72125; 72128; 72131; 73030; 73521; 80048; 81001; 83735; 85025; 87077; 87086; 87088; 87186; 96361; 96365; 97110; 97161; 97165; 97530; 97535; 99285; A9270; G0378; J0696; J7030

== ENCOUNTER 2020-06-22 12:03 | Emergency (ER) | payer MEDICARE, SELFPAY ==
--- NOTE | ~2020-06-22 | CT_ITS ---
EXAMINATION: CT brain wo/w con EXAM DATE: 06/22/2020 14:18 INDICATION: Headache, fever. TECHNIQUE: Spiral CT of the head was performed without contrast and then again with intravenous injec tion of 100 mL Omnipaque 350 solution. Axial, coronal and sagittal images were reviewed. The dose-l ength product (DLP) for this examination was 1210.67 mGy-cm. The exposure was tailored according to patient size, and iterative reconstruction (ASIR) was used as additional dose reduction technique. Co mparison is made to prior examination from 05/02/2020. FINDINGS: There is no acute intraparenchymal hemorrhage. No evidence of intraparenchymal brain mass lesion. No evidence of acute infarction. Please note that initial head CT has limited sensitivity f or small or acute infarctions. There is mild periventricular and subcortical hypodensity, nonspecific but probably related to small vessel ischemic disease. There is mild prominence of the sulci and v entricles related to cerebral atrophy. There is intracranial carotid arteriosclerosis. There are n o extra-axial collections. There is no mass effect or midline shift. The orbits are unremarkable. Soft tissue is unremarkable. Chronic left sigmoid sinus opacity with wall thickening. There is no s ignificant interval change. IMPRESSION: 1. Chronic left sphenoid sinus opacity. 2. Chronic age related findings. 3. No acute findings. Reviewed, dictated and finalized at location B. [employer] SUPER[employer]ENT
[2020-06-22 12:08] VITALS: BP 140/95; PULSE 91; RESP 18; TEMP 36.7; O2SAT 100
--- NOTE | 2020-06-22 12:59 | ED.HA ---
HPI - Headache General Chief Complaint: Headache Stated Complaint: migraine, hx of migraines Time Seen by Provider: 06/22/20 12:29 History of Present Illness HPI Narrative: Patient is a 59-year-old female who presents ER with reports of migraine headache. Reports ongoing for last 3 days radiates from behind her eyes to her neck and then from the neck to behind her eyes. Endorses photophobia as well as some nausea/vomiting. She reports 1 episode of having a fever yesterday but has had no fevers today. She reports she is taking no pain medication for this at home. Reports she does not like taking medications in general. Patient also reports that she has history of HIV for which she is on no antiretroviral therapy and she is not taking it for at least a year after having a blood test that showed that she did not have a viral load. She is followed at [facility] with Dr. Johnson in the infectious disease department. Patient has no numbness or tingling in the arms or legs. No shooting pain down her back. No new rash. Headache is typical of her migraines that she has been having for many years. Related Data Home Medications Medication Instructions Recorded Confirmed Prezista 800 mg PO DAILY 05/02/20 05/02/20 abacavir [Ziagen] 600 mg PO DAILY 05/02/20 05/02/20 acetaminophen 1,000 mg PO Q6H PRN 05/02/20 05/02/20 amlodipine 5 mg PO DAILY 05/02/20 05/02/20 cyclobenzaprine 10 mg PO HS PRN 05/02/20 05/02/20 diazepam 10 mg PO BID 05/02/20 05/02/20 diclofenac sodium 1 ea TOPICAL QID PRN 05/02/20 05/02/20 estradiol [Estrace] 1 mg PO DAILY 05/02/20 05/02/20 etravirine 400 mg PO DAILY 05/02/20 05/02/20 gabapentin 300 mg PO HS 05/02/20 05/02/20 levothyroxine 150 mcg PO DAILY 05/02/20 05/02/20 mirtazapine 15 mg PO HS 05/02/20 05/02/20 ritonavir 100 mg PO DAILY 05/02/20 05/03/20 Allergies Allergy/AdvReac Type Severity Reaction Status Date / Time latex Allergy Mild Rash Verified 05/02/20 22:52 Sulfa (Sulfonamide Allergy Mild HIVES, RASH Verified 05/02/20 22:52 Antibiotics) morphine AdvReac Unknown Nausea and Verified 05/02/20 22:52 Vomiting Review of Systems Review of Systems: All systems reviewed & are unremarkable except as noted in HPI and below Constitutional: Constitutional: Denies chills, Reports fever(s) and Denies weakness Eyes: Eyes: Reports photophobia ENT: Denies nasal congestion and Denies sore throat Gastrointestinal: Gastrointestinal: Denies abdominal pain, Denies diarrhea, Reports nausea and Reports vomiting Integumentary/Breasts: Skin/Breast: Denies erythema and Denies rash Neurologic: Reports headache(s), Denies focal weakness and Denies numbness PMFSH Past Medical History Medical History Anemia Anxiety Arthritis HIV (human immunodeficiency virus infection) Hypothyroidism Melena Migraine headache Nephrolithiasis Surgical History Surgical History H/O: hysterectomy History of appendectomy Hx of cholecystectomy Social History Social History Smoking status: Never smoker Alcohol intake: never Substance use: never Gender identity (if verbalized by the patient): Female Spiritual care concerns: No Exam Narrative: Exam Narrative: GENERAL: Well-appearing, well-nourished, and in no acute distress. HEAD: Normocephalic, atraumatic. EYES: PERRLA and EOMI. ENT: Mucous membranes moist. CHEST: Clear to auscultation. No respiratory distress. HEART: Regular rate and rhythm. Normal peripheral pulses. ABDOMEN: Soft, nontender, nondistended. EXTREMITIES: Normal range of motion. No edema. SKIN: Warm, dry, no rash. NEURO: Alert and oriented x3. CN II-XII intact. Course Course Emergency Course: Patient informed of results. Headache markedly improved after medication. No evidence of infection on CT scan. Patient has been afebrile. I have contacte
[2020-06-22 13:36] LABS: Basophils Percent Auto 0.3 % (0.2-1.2); Eosinophils Percent Auto 0.3 % (0-4.4); Hematocrit 41.7 % (37.0-47.0); Hemoglobin 13.6 g/dL (12.0-15.0); Immature Granulocyte Absolute 0.01 K/mm3 (0.00-0.031); Immature Granulocyte Percent A 0.3 % (0-0.5); Lymphocytes Absolute Auto 1.49 K/mm3 (0.9-3.2); Lymphocytes Percent Auto 42.2 % (18.3-44.2); Mean Corpuscular HGB Conc 32.6 g/dl (32-36); Mean Corpuscular Hemoglobin 25.8 pg (26-34); Mean Platelet Volume 9.6 fl (7.4-10.4); Monocytes Absolute Auto 0.4 K/mm3 (0.1-0.6); Monocytes Percent Auto 10.5 % (2.6-8.5); Neutrophils Absolute Auto 1.6 K/mm3 (1.3-6.7); Neutrophils Percent Auto 46.4 % (45.5-73.1); Platelet Count Result 174 k/mm3 (150-375); Red Blood Count 5.28 M/mm3 (4.2-5.4); Red Cell Distribution Width 18.8 % (11.5-14.5); White Blood Count 3.5 K/mm3 (4.5-10.0)
[2020-06-22] MEDS: KETOROLAC 30 MG/ML VIAL (*BKC) IV PUSH (13:37)
[2020-06-22] MEDS: diphenhydrAMINE HCl INJ 50 MG/ML VIAL 25 MG IV PUSH (13:41)
[2020-06-22 13:42] LABS: Anion Gap 12 mmol/L (8-16); Blood Urea Nitrogen 14 mg/dL (7-17); Calcium 9.5 mg/dL (8.4-10.2); Carbon Dioxide 27 mmol/L (22-30); Chloride 99 mmol/L (98-107); Estimated CRCL calculation 53 ml/min; Estimated Glomerular Filt Rate 50; Glucose 88 mg/dL (65-105); Potassium 3.5 mmol/L (3.4-5.0); Sodium 138 mmol/L (137-145)
[2020-06-22] MEDS: METOCLOPRAMIDE HCL INJ 10 MG/2 ML VIAL IV PUSH (13:44)
[2020-06-22] MEDS: SODIUM CHLORIDE 0.9% IV 1,000 ML 999 ML IV CONT (13:44)
[2020-06-22 16:16] VITALS: BP 122/90; PULSE 96; RESP 16; O2SAT 96
== END 2020-06-22 16:17 | disposition home or self-care (01) ==
PROVIDERS: Emergency Provider Emergency Medicine; PCP Physician Assistant
DX: G43.909 Migraine, unspecified, not intractable, without status migrainosus (principal); M19.90 Unspecified osteoarthritis, unspecified site; E03.9 Hypothyroidism, unspecified; Z21 Asymptomatic human immunodeficiency virus [HIV] infection status; Z86.2 Personal history of diseases of the blood and blood-forming organs and certain disorders involving the immune mechanism; Z87.442 Personal history of urinary calculi
CPT/HCPCS: 36415; 70470; 80048; 85025; 96361; 96374; 96375; 99284; J1200; J1885; J2765; J7030; Q9967

== ENCOUNTER 2020-09-23 13:56 | Emergency (ER) | payer MEDICARE, SELFPAY ==
--- NOTE | ~2020-09-23 | CT_ITS ---
EXAMINATION: CT BRAIN W/O DATE: 09/23/2020 16:17 INDICATION: Migraine headaches TECHNIQUE: Computed tomography (CT) of the head was performed without intravenous contrast. The dose- length product was 605.33 mGy-cm. The mA was adjusted according to patient size. Iterative reconstruc tion technique was employed. COMPARISON: CT dated 06/22/2020 FINDINGS: Normal sanchez-white differentiation. No acute intracranial hemorrhage, infarction, mass or ma ss effect. Mild atrophy. There are scattered mild periventricular and subcortical white matter change s, most likely related to small vessel ischemic disease (microangiopathy). There is intracranial athe rosclerosis. No ventriculomegaly or midline shift. Midline sagittal images demonstrate a normal corpus callosum, c raniovertebral junction and sella turcica. Basilar cisterns are patent. Paranasal sinuses and mastoids are pneumatized. No depressed skull fractures. IMPRESSION: 1. No acute intracranial abnormality. 2: Chronic age-related findings. Reviewed, dictated and finalized at location A.
[2020-09-23 13:58] VITALS: BP 107/83; PULSE 109; RESP 18; TEMP 36.6; O2SAT 100
[2020-09-23 15:41] VITALS: BP 114/83; PULSE 96; RESP 16; O2SAT 100
--- NOTE | 2020-09-23 16:04 | ED.HA ---
HPI - Headache General Chief Complaint: Headache Stated Complaint: MIGRAINE ALBRIGHT Time Seen by Provider: 09/23/20 15:43 Source: patient, EMS and RN notes reviewed Mode of arrival: EMS Limitations: no limitations History of Present Illness HPI Narrative: Patient 60 years old white female came to the emergency room by ambulance because of another episode of migraine headache, frontal radiating to left side of neck. Similar to the previous migraine headaches but this 1 is a little bit worse. Associated with nausea and vomiting once over the last 3 days. Patient denies any fever, chills, chest pain, shortness of breath, coughing, sore throat. Patient lives alone, a lot of stress lately. Related Data Home Medications Medication Instructions Recorded Confirmed Prezista 800 mg PO DAILY 05/02/20 05/02/20 abacavir [Ziagen] 600 mg PO DAILY 05/02/20 05/02/20 acetaminophen 1,000 mg PO Q6H PRN 05/02/20 05/02/20 amlodipine 5 mg PO DAILY 05/02/20 05/02/20 cyclobenzaprine 10 mg PO HS PRN 05/02/20 05/02/20 diazepam 10 mg PO BID 05/02/20 05/02/20 diclofenac sodium 1 ea TOPICAL QID PRN 05/02/20 05/02/20 estradiol [Estrace] 1 mg PO DAILY 05/02/20 05/02/20 etravirine 400 mg PO DAILY 05/02/20 05/02/20 gabapentin 300 mg PO HS 05/02/20 05/02/20 levothyroxine 150 mcg PO DAILY 05/02/20 05/02/20 mirtazapine 15 mg PO HS 05/02/20 05/02/20 ritonavir 100 mg PO DAILY 05/02/20 05/03/20 Allergies Allergy/AdvReac Type Severity Reaction Status Date / Time latex Allergy Mild Rash Verified 09/23/20 15:42 Sulfa (Sulfonamide Allergy Mild HIVES, RASH Verified 09/23/20 15:42 Antibiotics) morphine AdvReac Unknown Nausea and Verified 09/23/20 15:42 Vomiting Review of Systems Review of Systems: Narrative: CONSTITUTIONAL: Denies fever, chills, or sweats. EYES: Denies visual changes, redness, or discharge. ENT: Denies rhinorrhea, congestion, sore throat, or otalgia. CARDIOVASCULAR: Denies chest pain, palpitations, or edema. RESPIRATORY: Denies cough or dyspnea. GASTROINTESTINAL: Denies abdominal pain, nausea, vomiting, or diarrhea. GENITOURINARY: Denies dysuria or hematuria. SKIN: Denies rash or itching. MUSCULOSKELETAL: Denies back pain, joint pain, or myalgia. NEUROLOGIC: Denies headache, numbness, or weakness. PSYCHIATRIC: Denies anxiety or depression. PMFSH Past Medical History Medical History Anemia Anxiety Arthritis HIV (human immunodeficiency virus infection) Hypothyroidism Melena Migraine headache Nephrolithiasis Surgical History Surgical History H/O: hysterectomy History of appendectomy Hx of cholecystectomy Social History Social History Smoking status: Never smoker Alcohol intake: never Substance use: never Gender identity (if verbalized by the patient): Female Spiritual care concerns: No Exam Narrative: Exam Narrative: General appearance: Well-developed, well-nourished Skin: Normal color Head: Normocephalic, nontraumatic Eyes: Clear conjunctiva ENT: Oropharynx normal, ears normal, nose normal Neck: Supple, nontender Chest and respiratory: Airway patent, no respiratory distress, no accessory muscle use Heart: Regular rate/rhythm Abdomen: Soft, nontender, no organomegaly, quiet bowel sounds Vascular: Normal peripheral pulses, normal capillary refill. Musculoskeletal: Normal range of motion, nontender back Neurologic: Alert and oriented ?3, [employer] is normal as tested, no gross motor deficit Course Course Emergency Course: Improving Vital Signs Vital signs: Vital Signs Temperature
[2020-09-23] MEDS: METOCLOPRAMIDE HCL INJ 10 MG/2 ML VIAL IV PUSH (16:28)
[2020-09-23] MEDS: SODIUM CHLORIDE 0.9% IV 1,000 ML 999 ML IV CONT (16:28)
[2020-09-23] MEDS: diphenhydrAMINE HCl INJ 50 MG/ML VIAL IV PUSH (16:28)
[2020-09-23] MEDS: KETOROLAC 30 MG/ML VIAL (*BKC) IV PUSH (16:28)
[2020-09-23] MEDS: LORazepam INJ (*CRX) 2 MG/ML VIAL 1 MG IV PUSH (17:31)
[2020-09-23 17:32] VITALS: BP 116/72; PULSE 83; RESP 18; O2SAT 100
== END 2020-09-23 17:33 | disposition home or self-care (01) ==
PROVIDERS: Emergency Provider Emergency Medicine; PCP Physician Assistant
DX: G43.909 Migraine, unspecified, not intractable, without status migrainosus (principal); G44.209 Tension-type headache, unspecified, not intractable; F41.9 Anxiety disorder, unspecified; E03.9 Hypothyroidism, unspecified; Z87.442 Personal history of urinary calculi; Z21 Asymptomatic human immunodeficiency virus [HIV] infection status; Z86.2 Personal history of diseases of the blood and blood-forming organs and certain disorders involving the immune mechanism
CPT/HCPCS: 70450; 96361; 96374; 96375; 99284; J1200; J1885; J2060; J2765; J7030

== ENCOUNTER 2020-09-27 11:15 | Emergency (ER) | payer MEDICARE, SELFPAY ==
--- NOTE | ~2020-09-27 | CT_ITS ---
EXAMINATION: CT brain wo con DATE: 09/27/2020 12:46 INDICATION: Syncope and collapse. Headache. TECHNIQUE: Computed tomography (CT) of the head was performed without intravenous contrast. The mA wa s adjusted according to patient size. Iterative reconstruction technique was employed. The dose-lengt h product was 605.33 mGy-cm. COMPARISON: Head CT 09/23/2020 FINDINGS: There are scattered areas of low attenuation in the cerebral white matter. There is no intr acranial hemorrhage, acute infarction, or abnormal intracranial mass lesion. The ventricles are ramin l in size. There is mucosal thickening in the paranasal sinuses with thickening and sclerosis of the salinas of the left sphenoid and posterior left ethmoid sinuses, consistent with chronic sinusitis. The mastoid air cells are normal. IMPRESSION: 1. Stable mild nonspecific cerebral white matter disease, which likely represents chronic small vesse l ischemic disease. 2. Chronic sinusitis. Reviewed, dictated and finalized at location A. IMPRESSION: 1. Stable mild nonspecific cerebral white matter disease, which likely represen ts chronic small vessel ischemic disease. 2. Chronic sinusitis.
[2020-09-27 11:20] VITALS: BP 110/86; PULSE 101; RESP 20; TEMP 36.6; O2SAT 99
--- NOTE | 2020-09-27 12:05 | PC.NURSE ---
x1 day worsening migraine I collapsed on the floor and passed out , reports bilat frontal and base of neck pain. bilat blurred vision with spots , +N/V. Was here four days ago for same they gave me something that took the pain away, now it's back . Has been out of Imitrex x1 week
[2020-09-27 12:07] VITALS: BP 111/84; PULSE 87; RESP 18; O2SAT 100
[2020-09-27 12:50] LABS: Basophils Percent Auto 0.5 % (0.2-1.2); Eosinophils Percent Auto 0.5 % (0-4.4); Hematocrit 35.6 % (37.0-47.0); Hemoglobin 11.8 g/dL (12.0-15.0); Immature Granulocyte Absolute 0.05 K/mm3 (0.00-0.031); Immature Granulocyte Percent A 1.2 % (0-0.5); Lymphocytes Absolute Auto 1.19 K/mm3 (0.9-3.2); Lymphocytes Percent Auto 29.3 % (18.3-44.2); Mean Corpuscular HGB Conc 33.1 g/dl (32-36); Mean Corpuscular Hemoglobin 27.8 pg (26-34); Monocytes Absolute Auto 0.5 K/mm3 (0.1-0.6); Monocytes Percent Auto 11.3 % (2.6-8.5); Neutrophils Absolute Auto 2.3 K/mm3 (1.3-6.7); Neutrophils Percent Auto 57.2 % (45.5-73.1); Platelet Count Result 270 k/mm3 (150-375); Red Blood Count 4.24 M/mm3 (4.2-5.4); Red Cell Distribution Width 14.6 % (11.5-14.5); White Blood Count 4.1 K/mm3 (4.5-10.0)
[2020-09-27] MEDS: LACTATED RINGERS 1,000 ML 999 ML IV CONT (12:56)
[2020-09-27] MEDS: PROCHLORPERAZINE EDISYLATE 10 MG/2 ML VIAL IV PUSH (12:56)
[2020-09-27 13:24] LABS: Erythrocyte Sedimentation Rate 84 mm/hr (0-20)
--- NOTE | 2020-09-27 13:40 | PC.NURSE ---
Pt continually asking for crackers, pt tolerating PO intake w/o vomiting. IV fluid bolus infusing, reports improved headache pain 12/04. Non-labored respirations
--- NOTE | 2020-09-27 14:44 | ED.HA ---
HPI - Headache General Chief Complaint: Headache Stated Complaint: headache, weakness Time Seen by Provider: 09/27/20 12:31 Source: patient Mode of arrival: ambulatory Limitations: no limitations History of Present Illness HPI Narrative: 60-year-old female History of migraine headaches x5 to 7 years approximately once a month which she uses Imitrex to abort She is followed and treated for this at [facility] in the ID clinic where she basically is seen and treated for chronic HIV and she is compliant with that and has nondetectable viral loads per patient She says that the last 2 migraines which she has had have been about a month apart and somewhat worse than they usually of been And currently her headache was treated here a few days ago but had returned now She does have some visual symptoms and light sensitivity and mild nausea but no vomiting, no neck pain, no fever, no other focal neurologic signs or symptoms Related Data Home Medications Medication Instructions Recorded Confirmed Prezista 800 mg PO DAILY 05/02/20 05/02/20 abacavir [Ziagen] 600 mg PO DAILY 05/02/20 05/02/20 acetaminophen 1,000 mg PO Q6H PRN 05/02/20 05/02/20 amlodipine 5 mg PO DAILY 05/02/20 05/02/20 cyclobenzaprine 10 mg PO HS PRN 05/02/20 05/02/20 diazepam 10 mg PO BID 05/02/20 05/02/20 diclofenac sodium 1 ea TOPICAL QID PRN 05/02/20 05/02/20 estradiol [Estrace] 1 mg PO DAILY 05/02/20 05/02/20 etravirine 400 mg PO DAILY 05/02/20 05/02/20 gabapentin 300 mg PO HS 05/02/20 05/02/20 levothyroxine 150 mcg PO DAILY 05/02/20 05/02/20 mirtazapine 15 mg PO HS 05/02/20 05/02/20 ritonavir 100 mg PO DAILY 05/02/20 05/03/20 Allergies Allergy/AdvReac Type Severity Reaction Status Date / Time latex Allergy Mild Rash Verified 09/23/20 15:42 Sulfa (Sulfonamide Allergy Mild HIVES, RASH Verified 09/23/20 15:42 Antibiotics) morphine AdvReac Unknown Nausea and Verified 09/23/20 15:42 Vomiting Review of Systems Review of Systems: All systems reviewed & are unremarkable except as noted in HPI and below Constitutional: Constitutional: Reports no additional constitutional complaints, Denies chills, Denies fever(s) and Denies headache(s) Eyes: Eyes: Reports no additional eye complaints, Reports change in vision and Denies photophobia ENT: Denies headache(s), Denies nasal congestion and Denies sore throat Cardiovascular: Cardiovascular: Denies chest pain and Denies dyspnea Respiratory: Respiratory: Denies cough and Denies dyspnea Gastrointestinal: Gastrointestinal: Denies abdominal pain, Denies diarrhea, Reports nausea and Denies vomiting Genitourinary: Genitourinary: Denies urinary frequency and Denies dysuria Musculoskeletal: Musculoskeletal: Denies deformity, Denies arthralgias, Denies joint swelling and Denies numbness Integumentary/Breasts: Skin/Breast: Denies rash and Denies wounds Neurologic: Reports headache(s), Denies focal weakness and Denies numbness Psychiatric: Psychiatric: Reports no additional psychiatric complaints Endocrine: Endocrine: Reports no additional endocrine complaints Hematologic/Lymphatic: Hematologic/Lymphatic: Reports no additional hematologic/lymphatic complaints Allergic/Immunologic: Allergic/Immunologic: Reports no additional allergic/immunologic complaints [facility] Past Medical History Medical History Anemia Anxiety Arthritis HIV (human immunodeficiency virus infection) Hypothyroidism Melena Migraine headache Nephrolithiasis Surgical History Surgical History H/O: hysterectomy History of appendectomy Hx of cholecystectomy Social History Social History Smoking status: Never smoker Alcohol intake: never Substance use: never Gender identity (if verbalized by the patient): Female Spiritual care concerns: No Exam Const: General: cooperativ
[2020-09-27 15:10] VITALS: BP 124/88; PULSE 99; RESP 18; O2SAT 99
== END 2020-09-27 15:12 | disposition home or self-care (01) ==
PROVIDERS: Emergency Provider Emergency Medicine; PCP Physician Assistant
DX: G43.909 Migraine, unspecified, not intractable, without status migrainosus (principal); Z21 Asymptomatic human immunodeficiency virus [HIV] infection status; D64.9 Anemia, unspecified; M19.90 Unspecified osteoarthritis, unspecified site; E03.9 Hypothyroidism, unspecified; Z87.442 Personal history of urinary calculi; F41.9 Anxiety disorder, unspecified
CPT/HCPCS: 36415; 70450; 85025; 85652; 96361; 96374; 96375; 99284; J0780; J1100; J7120

== ENCOUNTER 2020-10-02 12:46 | Emergency (ER) | payer MEDICARE, SELFPAY ==
--- NOTE | ~2020-10-02 | CT_ITS ---
EXAMINATION: CT brain wo con DATE: 10/02/2020 13:21 INDICATION: Weakness. Dizziness. TECHNIQUE: Computed tomography (CT) of the head was performed without intravenous contrast. The mA wa s adjusted according to patient size. Iterative reconstruction technique was employed. The dose-lengt h product was 605.33 mGy-cm. COMPARISON: Head CT 09/27/2020 FINDINGS: There are scattered areas of low attenuation in the cerebral white matter. There is no intr acranial hemorrhage, acute infarction, or abnormal intracranial mass lesion. The ventricles are ramin l in size. There is mucosal thickening in the paranasal sinuses. There is thickening and sclerosis of the salinas of left sphenoid sinus and the posterior left ethmoid sinuses, consistent with chronic sin usitis. The mastoid air cells are normal. The orbits are normal. IMPRESSION: 1. Stable mild nonspecific cerebral white matter disease, which likely represents chronic small vesse l ischemic disease. 2. Chronic sinusitis. Reviewed, dictated and finalized at location A. IMPRESSION: 1. Stable mild nonspecific cerebral white matter disease, which likely represen ts chronic small vessel ischemic disease. 2. Chronic sinusitis.
--- NOTE | ~2020-10-02 | CT_ITS ---
EXAMINATION: CT cervical spine wo con DATE: 10/02/2020 13:21 INDICATION: Neck injury. Dizziness. Weakness. TECHNIQUE: Computed tomography (CT) of the cervical spine was performed without intravenous contrast. Automated exposure control and iterative reconstruction technique were employed. The dose-length pro duct was 96.33 mGy-cm. COMPARISON: CT cervical spine 05/02/2020 FINDINGS: There is dextroscoliosis of cervicothoracic spine. Vertebral body heights and intervertebra l disc heights are normal. The following disc levels are specifically discussed: C2-C3: There is no uncovertebral joint osteoarthritis. There is severe bilateral facet joint osteoart hritis. There is no neural foraminal stenosis. There is no central canal stenosis. C3-C4: There is mild right uncovertebral joint osteoarthritis. There is severe bilateral facet joint osteoarthritis. There is mild bilateral neural foraminal stenosis. There is mild central canal stenos is. C4-C5: There is severe right and moderate left uncovertebral joint osteoarthritis. There is no facet joint osteoarthritis. There is no neural foraminal stenosis. There is mild central canal stenosis. C5-C6: There is no uncovertebral joint osteoarthritis. There is mild right and severe left facet join t osteoarthritis. There is mild left neural foraminal stenosis. There is mild central canal stenosis. C6-C7: There is no uncovertebral joint osteoarthritis. There is mild bilateral facet joint osteoarthr itis. There is no neural foraminal stenosis. There is no central canal stenosis. C7-T1: There is no uncovertebral joint osteoarthritis. There is mild right and severe left facet join t osteoarthritis. There is mild left neural foraminal stenosis. There is no central canal stenosis. IMPRESSION: 1. No fracture. 2. Mild cervical spondylosis. 3. Dextroscoliosis of cervicothoracic spine. Reviewed, dictated and finalized at location A.
--- NOTE | ~2020-10-02 | XR_ITS ---
EXAMINATION: XR shoulder RT min 2V EXAM DATE: 10/02/2020 13:47 INDICATION: Fall, right anterior shoulder pain. Initial encounter. TECHNIQUE: The following right shoulder projections obtained: frontal projection with internal rotati on, frontal projection with external rotation, Grashey, and scapular Y view (4+ views). 05/02/2020 FINDINGS: No evidence of right shoulder rotator cuff calcific tendinosis. There is mild glenohumera l joint, mild to moderate acromioclavicular joint primary osteoarthritis. There are no acute fracture s or dislocations identified. There is no subcutaneous gas. The soft tissue is unremarkable. Ther e are no radiopaque foreign bodies. IMPRESSION: 1. XR shoulder RT min 2V exam without acute osseous findings. Reviewed, dictated and finalized at location A.
[2020-10-02 12:49] VITALS: BP 138/83; PULSE 66; RESP 18; TEMP 36.7; O2SAT 100
--- NOTE | 2020-10-02 13:17 | ED.HA ---
HPI - Headache General Chief Complaint: Headache Stated Complaint: fall down stairs Time Seen by Provider: 10/02/20 13:17 History of Present Illness HPI Narrative: 60 yo female w/ h/o HIV reports that she fell down 14 steps. She says that she was having a migraine. This was associated with nausea and vomiting. This is typical of her Migraines. This made her blackout and fall down the stairs. She reports that the headache is not worse and now she has pain in her neck as well. No weakness, numbness, confusion. She has been here multiple times for similar complaints. Related Data Home Medications Medication Instructions Recorded Confirmed Prezista 800 mg PO DAILY 05/02/20 05/02/20 abacavir [Ziagen] 600 mg PO DAILY 05/02/20 05/02/20 acetaminophen 1,000 mg PO Q6H PRN 05/02/20 05/02/20 amlodipine 5 mg PO DAILY 05/02/20 05/02/20 cyclobenzaprine 10 mg PO HS PRN 05/02/20 05/02/20 diazepam 10 mg PO BID 05/02/20 05/02/20 diclofenac sodium 1 ea TOPICAL QID PRN 05/02/20 05/02/20 estradiol [Estrace] 1 mg PO DAILY 05/02/20 05/02/20 etravirine 400 mg PO DAILY 05/02/20 05/02/20 gabapentin 300 mg PO HS 05/02/20 05/02/20 levothyroxine 150 mcg PO DAILY 05/02/20 05/02/20 mirtazapine 15 mg PO HS 05/02/20 05/02/20 ritonavir 100 mg PO DAILY 05/02/20 05/03/20 Allergies Allergy/AdvReac Type Severity Reaction Status Date / Time latex Allergy Mild Rash Verified 09/23/20 15:42 Sulfa (Sulfonamide Allergy Mild HIVES, RASH Verified 09/23/20 15:42 Antibiotics) morphine AdvReac Unknown Nausea and Verified 09/23/20 15:42 Vomiting Review of Systems Review of Systems: All systems reviewed & are unremarkable except as noted in HPI and below Constitutional: Constitutional: Denies fever(s) and Denies weakness Eyes: Eyes: Reports change in vision ENT: Reports system reviewed and no additional complaints, except as documented Cardiovascular: Cardiovascular: Denies chest pain Respiratory: Respiratory: Denies dyspnea Gastrointestinal: Gastrointestinal: Denies abdominal pain, Reports nausea and Reports vomiting Genitourinary: Genitourinary: Reports no additional female genitourinary complaints Musculoskeletal: Musculoskeletal: Denies back pain Neurologic: Denies dizziness [facility] Past Medical History Medical History Anemia Anxiety Arthritis HIV (human immunodeficiency virus infection) Hypothyroidism Melena Migraine headache Nephrolithiasis Surgical History Surgical History H/O: hysterectomy History of appendectomy Hx of cholecystectomy Social History Social History Smoking status: Never smoker Alcohol intake: never Substance use: never Gender identity (if verbalized by the patient): Female Spiritual care concerns: No Exam Const: General: healthy appearing, no acute distress and alert Orientation/consciousness: patient oriented x3 HENMT: Head: normal to inspection Eyes: Conjunctivae: conjunctivae normal Pupils: Equal, round and reactive pupils present EOM: EOMs intact bilaterally Neck: Neck: normal visual inspection Resp: Effort & Inspection: normal respiratory effort Auscultation: clear to auscultation bilaterally, no rales, no rhonchi and no wheezes Cardio: Jugular venous distension: no JVD Rate: regular rate Rhythm: regular rhythm Heart sounds: no murmurs GI: Inspection: non-distended GI Palp: Yes Soft to palpation and No Tenderness to palpation present (GI) Back/Spine/Pelvis: Other: Cervical midline tenderness Skin: General skin exam: normal color Neuro: General: patient oriented x3 and moves all extremities Speech: normal speech Extrem: General: no edema Psych: Appearance: well kempt Affect: normal affect Course Vital Signs Vital signs: Vital Signs Temperature 36.7 C 10/02/20 12:49 Pulse Rate 66 10/02/20
[2020-10-02 14:20] VITALS: BP 145/95; PULSE 86; RESP 14; O2SAT 99
[2020-10-02] MEDS: SODIUM CHLORIDE 0.9% IV 1,000 ML 999 ML IV CONT (14:27)
[2020-10-02] MEDS: METOCLOPRAMIDE HCL INJ 10 MG/2 ML VIAL IV PUSH (14:27)
[2020-10-02] MEDS: diphenhydrAMINE HCl INJ 50 MG/ML VIAL 25 MG IV PUSH (14:27)
[2020-10-02] MEDS: KETOROLAC 30 MG/ML VIAL (*BKC) IV PUSH (14:27)
[2020-10-02 15:10] VITALS: BP 130/91; PULSE 77; RESP 14; O2SAT 99
[2020-10-02] MEDS: SUMAtriptan SUCCINATE 6 MG/0.5 ML VIAL SUB-Q (15:37)
[2020-10-02 15:50] VITALS: BP 134/86; PULSE 85; RESP 14; O2SAT 99
== END 2020-10-02 15:55 | disposition home or self-care (01) ==
PROVIDERS: Emergency Provider Emergency Medicine; PCP Physician Assistant
DX: G43.909 Migraine, unspecified, not intractable, without status migrainosus (principal); Z21 Asymptomatic human immunodeficiency virus [HIV] infection status; F41.9 Anxiety disorder, unspecified; M19.90 Unspecified osteoarthritis, unspecified site; Z86.2 Personal history of diseases of the blood and blood-forming organs and certain disorders involving the immune mechanism; E03.9 Hypothyroidism, unspecified; Z87.442 Personal history of urinary calculi; W10.9XXA Fall (on) (from) unspecified stairs and steps, initial encounter
CPT/HCPCS: 70450; 72125; 73030; 96361; 96372; 96374; 96375; 99284; J0131; J1200; J1885; J2765; J3030; J7030; L0140

== ENCOUNTER 2020-10-05 11:16 | Emergency (ER) | payer MEDICARE, SELFPAY ==
--- NOTE | ~2020-10-05 | XR_ITS ---
XR shoulder RT min 2V 10/05/2020 13:10 Indication: Right shoulder pain Procedure: 5 views right shoulder Comparison: 10/02/2020 Findings: Osteopenia. No fracture or traumatic malalignment. Glenohumeral joint intact. No significan t soft tissue abnormality. No foreign bodies. Impression: 1: No acute bone or joint abnormality. Reviewed, dictated and finalized at location B. Impression: 1: No acute bone or joint abnormality.
--- NOTE | ~2020-10-05 | XR_ITS ---
XR hip RT 2V w AP pelvis 10/05/2020 13:11 Indication: Right hip pain after fall Procedure: AP pelvis and 2 views right hip Comparison: 05/02/2020 Findings: No acute fracture, subluxation or dislocation. There is osteoarthritis of the hips, right g reater than left. Osteopenia. Sacral foramen are symmetric. There is lower lumbar spondylosis. Impression: 1: Osteoarthritis of the hips, right greater than left. Reviewed, dictated and finalized at location B. Impression: 1: Osteoarthritis of the hips, right greater than left.
--- NOTE | ~2020-10-05 | XR_ITS ---
EXAMINATION: XR chest 2V 10/05/2020 13:11 INDICATION: Generalized weakness. Status post fall. PROCEDURE: 2 view chest COMPARISON: 04/27/2020 FINDINGS: The lungs are clear. The cardiomediastinal silhouette is within normal limits. There are no pleural effusions. There is no pneumothorax suspected. There is chronic burst fracture of a midt horacic vertebra unchanged. IMPRESSION: 1: NO ACUTE CARDIOPULMONARY DISEASE. Reviewed, dictated and finalized at location B.
--- NOTE | ~2020-10-05 | XR_ITS ---
XR lumbar spine 2-3V 10/05/2020 13:11 Indication: Low back pain after fall Procedure: 3 views lumbar spine Comparison: CT dated 05/02/2020 Findings: There are mild compression deformities of T12, L2, L3, L4 and L5 which appear chronic. Ther e is mild disc narrowing at L3-4 and L4-5. There are facet degenerative changes at L4-5 and L5-S1. No acute fracture or traumatic malalignment. Sacral foramen are symmetric. There are cholecystectomy cl ips. Impression: 1: No acute abnormality of the lumbar spine. 2: Multiple chronic compression fractures of T12, L2, L3, L4 and L5. 3: Moderate lumbar spondylosis. Reviewed, dictated and finalized at location B. Impression: 1: No acute abnormality of the lumbar spine. 2: Multiple chronic compression fractures of T12, L2, L3, L4 and L5. 3: Moderate lumbar spondylosis.
--- NOTE | ~2020-10-05 | CT_ITS ---
EXAMINATION: CT facial & cervical spine wo EXAM DATE: 10/05/2020 13:32 INDICATION: Fall, facial injury, head injury. TECHNIQUE: Spiral CT of the facial bones was acquired in the axial plane. Coronal reformatted images were also reviewed. Spiral CT of the cervical spine was performed without contrast. Axial images we re reviewed. Coronal and sagittal reformatted images were also reviewed. The dose-length product (DL P) for this examination was 292.94 mGy-cm. The exposure was tailored according to patient size, and iterative reconstruction (ASIR) was used as additional dose reduction technique. Comparison is made t o prior examination from 10/02/2020. FINDINGS: FACIAL CT: There are no displaced acute nasal bone fractures. The mandible, sinuses and orbits are i ntact. The orbits, globes and extraocular muscles are unremarkable. Chronically opacified left sp henoid sinus with severe wall thickening, chronic sinusitis. Sinuses are otherwise well aerated. 3. [address]: There is no evidence of acute cervical fracture. The odontoid process is intact. Pre-d ens space is normal. Prevertebral soft tissue is normal. There are no soft tissue abnormalities tonja ntified. There is no disc space widening or traumatic vertebral body subluxation suspected. Mild ce rvical disc disease, moderate cervical facet arthropathy. A detailed level by level evaluation of sp ondylosis can be added as addendum if requested. IMPRESSION: 1. No acute facial or cervical fracture. 2. Chronic left sphenoid sinusitis. 3. Moderate cervical arthropathy. Reviewed, dictated and finalized at location A.
--- NOTE | ~2020-10-05 | CT_ITS ---
EXAMINATION: CT brain wo [facility] EXAM DATE: 10/05/2020 13:32 INDICATION: Fall, head injury. Facial injury. TECHNIQUE: Spiral CT of the head was performed without contrast. Axial, coronal and sagittal images were reviewed. The dose-length product (DLP) for this examination was 605.33 mGy-cm. The exposure w as tailored according to patient size, and iterative reconstruction (ASIR) was used as additional dos e reduction technique. Comparison is made to prior examination from 10/02/2020. FINDINGS: There is no acute intraparenchymal hemorrhage. No evidence of intraparenchymal brain mass lesion. No evidence of acute infarction. Mild microangiopathy and cerebral atrophy. There is no mass effect or midline shift. The ventricles are normal in size. There are no extra-axial collections. There are no acute calvarial fractures. The orbits are unremarkable. Soft tissue is unremarkable. Chronically opacified left sphenoid sinus with severe wall thickening. There is no significant inter julio c change. IMPRESSION: 1. No acute intracranial findings. 2. Chronic left sphenoid sinusitis. Reviewed, dictated and finalized at location A.
[2020-10-05 11:25] VITALS: BP 125/96; PULSE 93; RESP 19; TEMP 37; O2SAT 97
--- NOTE | 2020-10-05 11:41 | ED.FALL ---
HPI - Fall General Chief Complaint: Fall Stated Complaint: FALL/R SHOULDER PAIN Time Seen by Provider: 10/05/20 11:25 Source: patient Mode of arrival: EMS Limitations: no limitations History of Present Illness HPI Narrative: Patient is a 60 year old female who presents complaining of a fall. Patient reports dizzy, lightheaded with a migraine and fell hitting right head and face, then down approximately 8 carpeted steps landing on right side. She also reports migraine headache and nausea at this time. She reports a history of migraines. She denies LOC. She is also reporting right shoulder pain, lumbar spine pain and right hip pain. No obvious deformities noted. Patient reports 3 other falls in the past three days from weakness but denies other injuries. She denies use of otc medications for pain prior to arrival. MD complaint: fall Related Data Home Medications Medication Instructions Recorded Confirmed Prezista 800 mg PO DAILY 05/02/20 05/02/20 abacavir [Ziagen] 600 mg PO DAILY 05/02/20 05/02/20 acetaminophen 1,000 mg PO Q6H PRN 05/02/20 05/02/20 amlodipine 5 mg PO DAILY 05/02/20 05/02/20 cyclobenzaprine 10 mg PO HS PRN 05/02/20 05/02/20 diazepam 10 mg PO BID 05/02/20 05/02/20 diclofenac sodium 1 ea TOPICAL QID PRN 05/02/20 05/02/20 estradiol [Estrace] 1 mg PO DAILY 05/02/20 05/02/20 etravirine 400 mg PO DAILY 05/02/20 05/02/20 gabapentin 300 mg PO HS 05/02/20 05/02/20 levothyroxine 150 mcg PO DAILY 05/02/20 05/02/20 mirtazapine 15 mg PO HS 05/02/20 05/02/20 ritonavir 100 mg PO DAILY 05/02/20 05/03/20 Allergies Allergy/AdvReac Type Severity Reaction Status Date / Time latex Allergy Mild Rash Verified 09/23/20 15:42 Sulfa (Sulfonamide Allergy Mild HIVES, RASH Verified 09/23/20 15:42 Antibiotics) morphine AdvReac Unknown Nausea and Verified 09/23/20 15:42 Vomiting Review of Systems Review of Systems: Narrative: CONSTITUTIONAL: Denies fever, chills, or sweats. EYES: Denies visual changes, redness, or discharge. ENT: Denies rhinorrhea, congestion, sore throat, or otalgia. Reports neck tenderness, right jaw pain CARDIOVASCULAR: Denies chest pain, palpitations, or edema. RESPIRATORY: Denies cough or dyspnea. GASTROINTESTINAL: Denies abdominal pain, nausea, vomiting, or diarrhea. GENITOURINARY: Denies dysuria or hematuria. SKIN: Denies rash or itching. MUSCULOSKELETAL: Reports right shoulder pain, right hip pain and lumbar spine pain NEUROLOGIC: Reports headache, denies numbness, dizziness, or weakness. Denies LOC during fall PSYCHIATRIC: Denies anxiety or depression. [facility] Past Medical History Medical History Anemia Anxiety Arthritis HIV (human immunodeficiency virus infection) Hypothyroidism Melena Migraine headache Nephrolithiasis Surgical History Surgical History H/O: hysterectomy History of appendectomy Hx of cholecystectomy Social History Social History Smoking status: Never smoker Alcohol intake: never Substance use: never Gender identity (if verbalized by the patient): Female Spiritual care concerns: No Comments At the time of signature, I have reviewed and agree with nursing past medical, surgical, social, and family history unless otherwise noted. Please see nursing chart for further information. There is no relevant family history pertinent to the presenting complaint. Exam Narrative: Exam Narrative: GENERAL: Well-appearing, well-nourished, and in no acute distress. HEAD: Normocephalic, atraumatic. EYES: EOMI. No redness or drainage. Conjunctiva are normal. ENT: Mucous membranes pink and moist. Nares clear. No rhinorrhea. Throat normal. Uvula midline. NECK: AROM. Supple. No lymphadenopathy. No palpable step-off. CHEST: No respiratory distress. Clear to auscultation. HEART: Regular rate and rhythm. No mur
[2020-10-05 12:45] LABS: Basophils Percent Auto 0.6 % (0.2-1.2); Eosinophils Percent Auto 0.2 % (0-4.4); Hematocrit 41.5 % (37.0-47.0); Hemoglobin 13.6 g/dL (12.0-15.0); Immature Granulocyte Absolute 0.04 K/mm3 (0.00-0.031); Immature Granulocyte Percent A 0.9 % (0-0.5); Lymphocytes Absolute Auto 1.43 K/mm3 (0.9-3.2); Lymphocytes Percent Auto 30.6 % (18.3-44.2); Mean Corpuscular HGB Conc 32.8 g/dl (32-36); Mean Corpuscular Hemoglobin 27.7 pg (26-34); Mean Corpuscular Volume 84.5 fl (80-100); Mean Platelet Volume 9.3 fl (7.4-10.4); Monocytes Absolute Auto 0.5 K/mm3 (0.1-0.6); Monocytes Percent Auto 11.1 % (2.6-8.5); Neutrophils Absolute Auto 2.6 K/mm3 (1.3-6.7); Neutrophils Percent Auto 56.6 % (45.5-73.1); Platelet Count Result 209 k/mm3 (150-375); Red Blood Count 4.91 M/mm3 (4.2-5.4); Red Cell Distribution Width 14.7 % (11.5-14.5); White Blood Count 4.7 K/mm3 (4.5-10.0)
[2020-10-05 13:00] VITALS: BP 121/82; PULSE 91; RESP 18; O2SAT 100
[2020-10-05 13:00] LABS: Add Urine Microscopic? YES; Appearance Urine Cloudy (Clear); Bacteria Urine 4+ /hpf; Bilirubin Urine Negative (Negative); Blood Urine 1+ (Negative); Color Urine Yellow (Yellow); Glucose Urine UA Negative (Negative); Ketones Urine 1+ mg/dL (Negative); Leukocyte Esterase Ur 3+ LEU/UL (Negative); Mucus Urine Rare /lpf; Nitrate Urine Positive (Negative); Protein Urine 1+ mg/dL (Negative); RBC Urine 21-50 /hpf (0-2); Specific Grav Ur 1.013 (1.001-1.035); Squamous Epithelial Cell Urine Many /hpf (Few); Urobilinogen Urine Negative mg/dL (<2.0); WBC Clumps Urine Present /HPF; WBC Urine >75 /hpf
[2020-10-05] MEDS: SODIUM CHLORIDE 0.9% IV 1,000 ML 999 ML IV CONT (13:11)
[2020-10-05 14:11] LABS: Alanine Aminotransferase 11 U/L (4-35); Albumin Level 4.4 g/dL (3.5-5.1); Alkaline Phosphatase 78 U/L (38-126); Anion Gap 13 mmol/L (8-16); Aspartate Amino Transferase 31 U/L (14-36); Bilirubin,Total 0.4 mg/dL (0.2-1.3); Blood Urea Nitrogen 14 mg/dL (7-17); Calcium 9.5 mg/dL (8.4-10.2); Carbon Dioxide 24 mmol/L (22-30); Chloride 101 mmol/L (98-107); Estimated CRCL calculation 40 ml/min; Estimated Glomerular Filt Rate 38; Glucose 75 mg/dL (65-105); Potassium 3.9 mmol/L (3.4-5.0); Sodium 138 mmol/L (137-145)
[2020-10-05 15:15] VITALS: BP 122/78; PULSE 90; RESP 18; O2SAT 100
== END 2020-10-05 15:16 | disposition home or self-care (01) ==
PROVIDERS: Emergency Provider Nurse Practitioner; PCP Physician Assistant
DX: N39.0 Urinary tract infection, site not specified (principal); S09.93XA Unspecified injury of face, initial encounter; R29.6 Repeated falls; E03.9 Hypothyroidism, unspecified; Z21 Asymptomatic human immunodeficiency virus [HIV] infection status; F41.9 Anxiety disorder, unspecified; Z87.442 Personal history of urinary calculi; Z86.2 Personal history of diseases of the blood and blood-forming organs and certain disorders involving the immune mechanism; M16.0 Bilateral primary osteoarthritis of hip; M47.816 Spondylosis without myelopathy or radiculopathy, lumbar region; J32.3 Chronic sphenoidal sinusitis; W10.9XXA Fall (on) (from) unspecified stairs and steps, initial encounter
CPT/HCPCS: 36415; 70450; 70486; 71046; 72100; 72125; 73030; 73502; 80053; 81001; 85025; 87077; 87086; 87088; 87186; 96360; 99284; J7030

== ENCOUNTER 2020-10-07 09:58 | Inpatient (IN) | payer MEDICARE, MEDICAID, SELFPAY ==
[2020-10-07] VITALS (12 sets, daily range): BP systolic 115–132; BP diastolic 68–90; PULSE 87–108; RESP 12–20; TEMP 36.2–36.7; O2SAT 97–100; BMI 21.2
--- NOTE | ~2020-10-07 | CT_ITS ---
EXAMINATION: [facility] brain [facility] EXAM DATE: 10/07/2020 10:30 INDICATION: Syncope, falls. Dizziness. Nausea. TECHNIQUE: Spiral CT of the head was performed without contrast. Axial, coronal and sagittal images were reviewed. The dose-length product (DLP) for this examination was 605.33 mGy-cm. The exposure w as tailored according to patient size, and iterative reconstruction (ASIR) was used as additional dos e reduction technique. Comparison is made to prior examination from 10/05/2020. FINDINGS: There is no acute intraparenchymal hemorrhage. No evidence of intraparenchymal brain mass lesion. No evidence of acute infarction. Please note that initial head CT has limited sensitivity f or small or acute infarctions. There is mild periventricular and subcortical hypodensity, nonspecific but probably related to small vessel ischemic disease. There is mild prominence of the sulci and v entricles related to cerebral atrophy. There is intracranial carotid arteriosclerosis. There are n o extra-axial collections. There is no mass effect or midline shift. The orbits are unremarkable. Soft tissue is unremarkable. The visualized sinuses and mastoid air cells are well aerated. IMPRESSION: 1. No acute intracranial findings. 2. Chronic age related findings. Reviewed, dictated and finalized at location A.
--- NOTE | ~2020-10-07 | US_ITS ---
EXAMINATION: US carotid duplex BI DATE: 10/08/2020 10:56 INDICATION: Carotid dizziness. Headaches. TECHNIQUE: Grayscale, color Doppler, and pulsed Doppler images of the cervical carotid arteries were obtained. The degree of vessel stenosis is placed in one of the following categories: normal, <50%, 5 0-69%, >=70% but less than near-occlusion, near-occlusion, or total occlusion. Note that percent sten osis relative to normal distal artery lumen diameter is indirectly measured from velocity measurement s as described by Adryan, et al. Radiology 2003; [id number]. Notes: Normal: Peak systolic velocity <125 centimeters/sec and no plaque <50%. Peak systolic velocity <125 ( EDV <40; ICA/CCA PSV ratio <2.0; used these factors only a tandem lesions or low cardiac output or co ntralateral disease) 50-69 %: PSV 125-230 (EDV 40-100; ratio 2-4) >= 70% but less than near occlusion: PSV greater than 230 (EDV > 100; ratio> 4.0) Near Occlusion: PSV that is variable; markedly narrowed lumen Occlusion: Absent flow on color/spectral Doppler and no lumen on sanchez scale. COMPARISON: None. FINDINGS: RIGHT: The right common carotid artery (CCA) peak systolic velocity (PSV) is 37 cm/s. The right internal car otid artery (ICA) PSV is 60 cm/s. The right ICA end-diastolic velocity (EDV) is 26 cm/s. The right IC A/CCA PSV ratio is 1.04. The external carotid artery (ECA) PSV is 65 cm/s. There is antegrade flow in the right vertebral artery. LEFT: The left CCA PSV is 59 cm/s. The left ICA PSV is 90 cm/s. The left ICA EDV is 47 cm/s. The left ICA/C CA PSV ratio is 1.52. The ECA PSV is 141 cm/s. There is antegrade flow in the left vertebral artery. IMPRESSION: 1. Less than 50% stenosis in the right internal carotid artery by sonographic criteria. 2. Less than 50% stenosis in the left internal carotid artery by sonographic criteria. Reviewed, dictated and finalized at location A. IMPRESSION: 1. Less than 50% stenosis in the right internal carotid artery by sonographic c laura. 2. Less than 50% stenosis in the left internal carotid artery by sonographic duy barragan.
--- NOTE | ~2020-10-07 | XR_ITS ---
EXAMINATION: XR chest 2V EXAM DATE: 10/07/2020 10:24 INDICATION: Pain, multiple falls recently, syncopal, weakness. TECHNIQUE: Frontal and lateral projections of the chest obtained and reviewed. Comparison is made to prior examination from 10/05/2020, 05/06/2017. FINDINGS: The lungs are clear. There are no pleural effusions. The cardiomediastinal silhouette is within normal limits. There is no pneumothorax suspected. There is severe chronic burst fracture of a midthoracic level unchanged compared to 2018 IMPRESSION: No acute cardiopulmonary findings. Reviewed, dictated and finalized at location A.
--- NOTE | 2020-10-07 10:12 | ECG_ITS ---
Measurements Intervals [place] Rate: 94 P: 77 NH: 164 QRS: 52 QRSD: 76 T: 71 QT: 327 QTc: 409 Interpretive Statements SINUS RHYTHM EARLY PRECORDIAL R/S TRANSITION NONSPECIFIC ST-T WAVE ABNORMALITY- ANT/HIGH LAT LEADS BORDERLINE ECG Electronically Signed On 10-07-2020 17:57:16 CDT by Akhil Lindo D.O.
--- NOTE | 2020-10-07 10:15 | ED.FALL ---
HPI - Fall General Chief Complaint: Fall Stated Complaint: fall Time Seen by Provider: 10/07/20 10:03 Source: patient, EMS, RN notes reviewed and old records reviewed Mode of arrival: EMS Limitations: no limitations History of Present Illness HPI Narrative: Patient is a 60-year-old female who presents to emergency department per EMS from home after allegedly having syncope falling down 14 stairs presents noting migraine headache for the last several days with difficulty tolerating p.o. intake. Patient with history of noncompliance and frequent ER visits with similar story. Patient on arrival notes headache and nausea. Patient presented to the emergency department with similar story a few days ago and was sent home patient was diagnosed with urinary tract infection but denies taking antibiotics. Patient on arrival does not appear distressed or uncomfortable. Patient notes history of migraine headaches and that this is consistent with her migraine history Related Data Home Medications Medication Instructions Recorded Confirmed Prezista 800 mg PO DAILY 05/02/20 05/02/20 abacavir [Ziagen] 600 mg PO DAILY 05/02/20 05/02/20 acetaminophen 1,000 mg PO Q6H PRN 05/02/20 05/02/20 amlodipine 5 mg PO DAILY 05/02/20 05/02/20 cyclobenzaprine 10 mg PO HS PRN 05/02/20 05/02/20 diazepam 10 mg PO BID 05/02/20 05/02/20 diclofenac sodium 1 ea TOPICAL QID PRN 05/02/20 05/02/20 estradiol [Estrace] 1 mg PO DAILY 05/02/20 05/02/20 etravirine 400 mg PO DAILY 05/02/20 05/02/20 gabapentin 300 mg PO HS 05/02/20 05/02/20 levothyroxine 150 mcg PO DAILY 05/02/20 05/02/20 mirtazapine 15 mg PO HS 05/02/20 05/02/20 ritonavir 100 mg PO DAILY 05/02/20 05/03/20 Allergies Allergy/AdvReac Type Severity Reaction Status Date / Time latex Allergy Mild Rash Verified 10/07/20 13:07 Sulfa (Sulfonamide Allergy Mild HIVES, RASH Verified 10/07/20 13:07 Antibiotics) morphine AdvReac Unknown Nausea and Verified 10/07/20 13:07 Vomiting Review of Systems Review of Systems: All systems reviewed & are unremarkable except as noted in HPI and below PMFSH Past Medical History Medical History Anemia Anxiety Arthritis HIV (human immunodeficiency virus infection) Hypothyroidism Melena Migraine headache Nephrolithiasis Surgical History Surgical History H/O: hysterectomy History of appendectomy Hx of cholecystectomy Social History Social History Smoking status: Never smoker Alcohol intake: never Substance use: never Gender identity (if verbalized by the patient): Female Spiritual care concerns: No Exam Narrative: Exam Narrative: GENERAL: Well-appearing, well-nourished, and in no acute distress. HEAD: Normocephalic, atraumatic. EYES: PERRLA and EOMI. ENT: Nares clear, no rhinorrhea or epistaxis. Mucous membranes moist. NECK: Supple. No adenopathy or masses. CHEST: Clear to auscultation. No respiratory distress. No wheezes rales or rhonchi HEART: Regular rate and rhythm. No murmur heard. Normal peripheral pulses. ABDOMEN: Soft, mild tenderness of the abdomen, nondistended EXTREMITIES: Normal range of motion. No edema. No cervical thoracic or lumbar tenderness no bruising or deformities of the spine. Patient moves all extremities without difficulty SKIN: Warm, dry, no rash. NEURO: No focal deficits. Alert and oriented x3. Cranial nerves II through XII grossly intact. Normal speech PSYCH: Normal mood and affect. Course Course Emergency Course: Patient will be brought into the hospital given her recurrent falls frequent syncope and potential for urinary tract infection that could be multidrug-resistant will be given Zosyn as recommended by the hospitalist and brought in for hydration placed on med telemetry floor given the syncope component patient hemodynamically stable at
[2020-10-07] MEDS: FAMOTIDINE 20 MG/2 ML VIAL IV PUSH ×2 (10:38→20:39)
[2020-10-07] MEDS: SODIUM CHLORIDE 0.9% IV 1,000 ML 999 ML IV CONT (10:38)
[2020-10-07] MEDS: LORazepam INJ (*CRX) 2 MG/ML VIAL 1 MG IV PUSH (10:42)
[2020-10-07] MEDS: METOCLOPRAMIDE HCL INJ 10 MG/2 ML VIAL IV PUSH (10:43)
[2020-10-07 11:37] LABS: Basophils Percent Auto 0.2 % (0.2-1.2); Eosinophils Percent Auto 0.4 % (0-4.4); Hematocrit 36.7 % (37.0-47.0); Hemoglobin 11.8 g/dL (12.0-15.0); Immature Granulocyte Absolute 0.04 K/mm3 (0.00-0.031); Immature Granulocyte Percent A 0.8 % (0-0.5); Lymphocytes Absolute Auto 1.74 K/mm3 (0.9-3.2); Lymphocytes Percent Auto 35.3 % (18.3-44.2); Mean Corpuscular HGB Conc 32.2 g/dl (32-36); Mean Corpuscular Hemoglobin 27.8 pg (26-34); Mean Corpuscular Volume 86.4 fl (80-100); Mean Platelet Volume 9.6 fl (7.4-10.4); Monocytes Absolute Auto 0.7 K/mm3 (0.1-0.6); Monocytes Percent Auto 13.4 % (2.6-8.5); Neutrophils Absolute Auto 2.5 K/mm3 (1.3-6.7); Neutrophils Percent Auto 49.9 % (45.5-73.1); Platelet Count Result 183 k/mm3 (150-375); Red Blood Count 4.25 M/mm3 (4.2-5.4); Red Cell Distribution Width 14.8 % (11.5-14.5); White Blood Count 4.9 K/mm3 (4.5-10.0)
[2020-10-07 11:43] LABS: Add Urine Microscopic? YES; Appearance Urine Cloudy (Clear); Bacteria Urine Trace /hpf; Bilirubin Urine Negative (Negative); Blood Urine 1+ (Negative); Color Urine Yellow (Yellow); Glucose Urine UA Negative (Negative); Ketones Urine Trace mg/dL (Negative); Leukocyte Esterase Ur 3+ LEU/UL (Negative); Nitrate Urine Positive (Negative); Protein Urine 1+ mg/dL (Negative); RBC Urine 21-50 /hpf (0-2); Specific Grav Ur 1.014 (1.001-1.035); Squamous Epithelial Cell Urine Moderate /hpf (Few); Urobilinogen Urine Negative mg/dL (<2.0); WBC Clumps Urine Present /HPF; WBC Urine >75 /hpf
[2020-10-07 11:48] LABS: Anion Gap 12 mmol/L (8-16); Blood Urea Nitrogen 14 mg/dL (7-17); Calcium 9.1 mg/dL (8.4-10.2); Carbon Dioxide 22 mmol/L (22-30); Chloride 102 mmol/L (98-107); Estimated CRCL calculation 36 ml/min; Estimated Glomerular Filt Rate 42; Glucose 83 mg/dL (65-105); Potassium 3.5 mmol/L (3.4-5.0); Sodium 136 mmol/L (137-145)
[2020-10-07 12:15] LABS: Amphetamine Screen Urine Negative (Negative); Barbiturate Screen Urine Negative (Negative); Benzodiazepines Screen Urine Negative (Negative); Cannabinoid Screen Urine Positive (Negative); Cocaine Screen Urine Negative (Negative); Methadone Screen Urine Negative (Negative); Opiate Screen Urine Negative (Negative); Phencyclidine Screen Urine Negative (Negative)
--- NOTE | 2020-10-07 13:55 | PC.NURSE ---
call to get report from ED nurse for admission, they are busy will return call shortly
--- NOTE | 2020-10-07 14:15 | ADMGEN ---
This patient, Yashira Vazquez, was admitted to Medical Room 247-. Patient/family oriented to hospital policies and general routines including ID bracelet, bed and alarms, visiting hours, pain management, procedures, bathroom and other care routines, personal items, smoking policy, room service/diet, and visiting hours. Information on how to activate the Rapid Response Team has been discussed. Patient/Family are encouraged to report perceived risks to care and to ask questions if they do not understand what they are told or what they should do.
[2020-10-07] MEDS: LACTATED RINGERS 1,000 ML 125 ML IV CONT (17:00)
--- NOTE | 2020-10-07 22:00 | PM.IMHP ---
H&P: HPI History of Present Illness Date/Time: 10/07/20 22:00 Chief Complaint: Fall down steps. Narrative: This is a 60-year-old female with chronic HIV who presented to the emergency department earlier today EMS from home after she reportedly fell down 14 steps at home. The patient reports chronic migraine headaches and it has been so bad over the last 1 week that she has not really been able to eat due to severe nausea. When she does get up to go to the bathroom, she has to walk up flight of stairs to the 2nd floor and she has had several episodes of dizziness/lightheadedness which have caused her to fall down the steps several times this week. In fact she was seen emergency department 2 days ago and 5 days ago for the same reasons. Today she reportedly had 3 syncopal episodes that she believes is due to lightheadedness and drop in blood pressures, and with 1 episode of syncope she reportedly fell down 14 steps. She complains of some pain in her right wrist but has no issues with active and passive range of motion. She has no other complaints of injury but she does complain of significant dysuria, suprapubic pain, and urinary urgency. In fact she was diagnosed with UTI 2 days ago and was given a prescription for antibiotics though she could not get that filled as she does not have a car. At the time my evaluation she rates the pain in her lower abdomen an 8/10. Her migraine is perhaps a little bit better but she still has nausea and photophobia. She denies vertigo, focal weakness, paresthesias, auditory and visual changes, chest pain, pleuritic pain, shortness of breath, vomiting, and diarrhea. Review of Systems Review of Systems: Narrative: Twelve systems were reviewed with pertinent positives and negatives as per HPI. She denies fever, chills, and sweats. No recent cold or flu symptoms. She denies exposure to those positive for COVID-19. She admits to being depressed since quarantine started last spring and she has not been able to get out and about as she no longer has a car. 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 She denies suicidal and homicidal ideation. Except as documented, all other systems were reviewed and are negative. [facility] Past Medical History Medical History (Updated 10/07/20 @ 23:42 by Niecy Mckeon PA-C) Anemia Anxiety Arthritis Chronic kidney disease, stage 3 Baseline creatinine ranges between 1.1 and 1.40. Depression Hepatitis C Human immunodeficiency virus Hypertension Hypothyroidism Migraine headache Nephrolithiasis Seizure X2. Surgical History Surgical History (Updated 10/07/20 @ 23:39 by Niecy Mckeon PA-C) History of appendectomy History of bilateral knee replacement History of cholecystectomy History of hysterectomy Family History Family History (Updated 10/07/20 @ 23:38 by Niecy Mckeon PA-C) Other Family history unknown Social History Social History (Updated 10/07/20 @ 23:39 by Niecy Mckeon PA-C) Social History: The patient lives in a townhouse in [place]. She is not currently working. She has 2 grown children, a son and a daughter, but they do not keep in touch very often. No alcohol, tobacco, or illicit substance use. At this time she does not designate a surrogate decision maker. Code status: Do not resuscitate. Sexual Orientation (if Verbalized by the Patient): . Meds Home Medications and Allergies Home Medications Medication Instructions Recorded Confirmed Type Prezista 800 mg PO DAILY 05/02/20 10/07/20 History abacavir [Ziagen] 600 mg PO DAILY 05/02/20 10/07/20 History acetaminophen 1,000 mg PO Q6H PRN 05/02/20 10/07/20 History diclofenac sodium 1 ea TOPICAL QID PRN 05/02/20 10/07/20 History estradiol [Estrace] 1 mg PO DAILY 05/02/20 10/07/20 History levothyroxine 150 mcg PO DAILY 05/02/20 10/07/20 History mirtazapine 15 mg PO HS 05/02/20 10/07/20 History ritonavir 100 mg
[2020-10-07] MEDS: HYDROmorphone HCL INJ (*CRX) 1 MG/ML SYR 0.5 MG IV PUSH (23:45)
[2020-10-08] VITALS (10 sets, daily range): BP systolic 97–123; BP diastolic 71–96; PULSE 91–128; RESP 16–20; TEMP 36.1–36.4; O2SAT 96–99
[2020-10-08] MEDS: MIRTAZAPINE 15 MG TABLET PO ×2 (00:10→20:04)
[2020-10-08] MEDS: HYDROcodone/acetaminophen (*CRX) 5-325 MG TABLET 1 TAB PO ×3 (05:36→20:04)
[2020-10-08] MEDS: LEVOTHYROXINE SODIUM 150 MCG TABLET PO (05:36)
[2020-10-08 05:42] LABS: Basophils Percent Auto 0.4 % (0.2-1.2); Eosinophils Percent Auto 0.4 % (0-4.4); Hematocrit 37.1 % (37.0-47.0); Hemoglobin 12.3 g/dL (12.0-15.0); Immature Granulocyte Absolute 0.03 K/mm3 (0.00-0.031); Immature Granulocyte Percent A 0.7 % (0-0.5); Lymphocytes Absolute Auto 1.43 K/mm3 (0.9-3.2); Lymphocytes Percent Auto 31.8 % (18.3-44.2); Mean Corpuscular HGB Conc 33.2 g/dl (32-36); Mean Corpuscular Hemoglobin 27.6 pg (26-34); Mean Corpuscular Volume 83.2 fl (80-100); Mean Platelet Volume 9.7 fl (7.4-10.4); Monocytes Absolute Auto 0.4 K/mm3 (0.1-0.6); Monocytes Percent Auto 8.9 % (2.6-8.5); Neutrophils Absolute Auto 2.6 K/mm3 (1.3-6.7); Neutrophils Percent Auto 57.8 % (45.5-73.1); Platelet Count Result 177 k/mm3 (150-375); Red Blood Count 4.46 M/mm3 (4.2-5.4); Red Cell Distribution Width 14.6 % (11.5-14.5); White Blood Count 4.5 K/mm3 (4.5-10.0)
[2020-10-08 06:10] LABS: Alanine Aminotransferase 9 U/L (4-35); Albumin Level 3.7 g/dL (3.5-5.1); Alkaline Phosphatase 70 U/L (38-126); Anion Gap 8 mmol/L (8-16); Aspartate Amino Transferase 22 U/L (14-36); Bilirubin,Total 0.1 mg/dL (0.2-1.3); Blood Urea Nitrogen 21 mg/dL (7-17); Calcium 8.8 mg/dL (8.4-10.2); Carbon Dioxide 24 mmol/L (22-30); Chloride 105 mmol/L (98-107); Estimated CRCL calculation 40 ml/min; Estimated Glomerular Filt Rate 38; Glucose 83 mg/dL (65-105); Magnesium 1.7 mg/dL (1.6-2.3); Potassium 3.9 mmol/L (3.4-5.0); Sodium 137 mmol/L (137-145)
[2020-10-08 06:51] LABS: Thyroid Stimulating Hormone Reflex > 100.000 uIU/mL (0.465-4.68)
[2020-10-08 07:27] LABS: Free T4 Free Thyroxine Reflex 0.22 ng/dL (0.78-2.19)
[2020-10-08] MEDS: estradioL 1 MG TABLET PO (08:05)
[2020-10-08] MEDS: diazePAM (*CRX) 5 MG TABLET 10 MG PO ×2 (08:08→16:37)
[2020-10-08] MEDS: ABACAVIR SULFATE 300 MG TABLET 600 MG PO (09:12)
[2020-10-08] MEDS: ACETAMINOPHEN 325 MG TABLET 650 MG PO (09:16)
--- NOTE | 2020-10-08 09:51 | WPDNEURCNPN ---
Assessment and Plan Assessment and plan (1) Migraine headache: Code(s): G43.909 - Migraine, unspecified, not intractable, without status migrainosus Status: Acute Additional Plan complaints of recurrent migrainous headaches of long duration for which she has been taking the p.r.n. medication and gives the history of 3 to 4 episodes per month someone has suggested to her to use the topiramate but she also have a history of renal problem I will hesitate to start that medication but consider Zonegran 100 mg daily as a prophylactic therapy and she can continue using Imitrex on p.r.n. basis Consult date: 10/08/20 Time Seen: 09:00 HPI: Yashira Vazquez is a 60 year old female admitted to the hospital for the complaints of fall down the steps with history of ongoing 1. Chronic HIV 2. Chronic migraine 3. History of recurrent fall down the steps reportedly patient has been in the emergency room several times for the same complaints and syncopal episodes she complains of pain in her right wrist with no active issues in passive range of motion history of recent UTI 2 days ago and complains of abdominal discomfort at the time of this admission patient does have ongoing history of multiple medical problems as outlined particularly anxiety, chronic kidney disease stage 3, hepatitis-C, when immunodeficiency virus, and depression, evaluation documents CT scan of the cervical spine with moderate cervical arthropathy and chronic left sphenoid sinusitis, CT scan of the head negative for the bleed routine lab negative except the sed rate of 84 and GFR of 38 recent urine culture positive for E coli Review of Systems Review of Systems: All systems reviewed & are unremarkable except as noted in HPI and below PMFSH Past Medical History Medical History Anemia Anxiety Arthritis Chronic kidney disease, stage 3 Baseline creatinine ranges between 1.1 and 1.40. Depression Hepatitis C Human immunodeficiency virus Hypertension Hypothyroidism Migraine headache Nephrolithiasis Seizure X2. Surgical History Surgical History History of appendectomy History of bilateral knee replacement History of cholecystectomy History of hysterectomy Family History Family History Other Family history unknown Social History Social History Social History: The patient lives in a [facility] in [place]. She is not currently working. She has 2 grown children, a son and a daughter, but they do not keep in touch very often. No alcohol, tobacco, or illicit substance use. At this time she does not designate a surrogate decision maker. Code status: Do not resuscitate. Sexual Orientation (if Verbalized by the Patient): . Meds Home Medications and Allergies Home Medications Medication Instructions Recorded Confirmed Type Prezista 800 mg PO DAILY 05/02/20 10/07/20 History abacavir [Ziagen] 600 mg PO DAILY 05/02/20 10/07/20 History acetaminophen 1,000 mg PO Q6H PRN 05/02/20 10/07/20 History diclofenac sodium 1 ea TOPICAL QID PRN 05/02/20 10/07/20 History estradiol [Estrace] 1 mg PO DAILY 05/02/20 10/07/20 History levothyroxine 150 mcg PO DAILY 05/02/20 10/07/20 History mirtazapine 15 mg PO HS 05/02/20 10/07/20 History ritonavir 100 mg PO DAILY 05/02/20 10/07/20 History cyclobenzaprine 10 mg QPM PRN 10/07/20 10/07/20 History diazepam 10 mg PO BID PRN 10/07/20 10/07/20 History sumatriptan succinate 25 mg PO PER PKG DIR PRN 10/07/20 10/07/20 History Allergies Allergy/AdvReac Type Severity Reaction Status Date / Time latex Allergy Mild Rash Verified 10/07/20 14:54 Sulfa (Sulfonamide Allergy Mild HIVES, RASH Verified 10/07/20 14:54 Antibiotics) morphine AdvReac Unknown Nausea and Verified 10/07/20 14:54 Vomiting Vital Signs Vital Signs - 24 hr
--- NOTE | 2020-10-08 10:01 | PC.NURSE ---
Patient refuses bed alarm, turns it off. Educated her in regards to why a bed alarm/chair alarm is necessary for her given the history of falls. However, patient still turns it off.
--- NOTE | 2020-10-08 10:46 | PM.IMPN ---
Progress Note: A&P Assessment and Plan (1) Syncope: Code(s): R55 - Syncope and collapse Status: Acute Assessment and Plan: Reports syncope x3 on 10/07/20. Etiology for this is unclear, but suspect she was dehydrated as she reports inability to tolerate PO intake over the past few days due to her migraine. Echocardiogram has been ordered and is pending Carotid doppler with <50% stenosis bilaterally Monitor orthostatics Monitor on telemetry (2) Falls frequently: Code(s): R29.6 - Repeated falls Status: Acute Assessment and Plan: She has fallen down her stairs 3 times this week. No injuries. Head CT negative for acute findings. May have weakness due to uncontrolled hypothyroidism vs physical deconditioning due to sedentary lifestyle/isolation. Fall precautions PT/OT eval appreciated Workup as described above (3) Urinary tract infection: Code(s): N39.0 - Urinary tract infection, site not specified Status: Acute Assessment and Plan: Urine culture from 10/05 with ESBL. She had been prescribed antibiotics but had not filled them. She is afebrile and without leukocytosis. Continue IV Zosyn based on initial urine culture and sensitivity Repeat urine culture from 10/07 is pending. (4) Human immunodeficiency virus: Code(s): B20 - Human immunodeficiency virus [HIV] disease Status: Acute Assessment and Plan: Chronic. She is established with Infectious Disease at [facility]. Continue abacavir Ritonavir, prezista, etravirine is non-formulary. She does not have anyone to bring these medications in for her. (5) Hypothyroidism: Qualifiers: Hypothyroidism type: unspecified Qualified Code(s): E03.9 - Hypothyroidism, unspecified Code(s): E03.9 - Hypothyroidism, unspecified Status: Chronic Assessment and Plan: Her TSH is elevated >100 with T4 decreased at 0.22. She has not been taking her medications for several weeks as she ran out of her prescription and has not been able to get a refill. Resume her levothyroxine 150 mcg daily We will provide a refill prior to discharge Recommend repeat reflex TSH in 4-6 weeks. (6) Migraine headache: Code(s): G43.909 - Migraine, unspecified, not intractable, without status migrainosus Status: Acute Assessment and Plan: Resolved. Head CT negative. She was seen in consultation by neurology. Imitrex prn Consider zonegran for prophylaxis per neurology recommendations. (7) Chronic kidney disease, stage 3: Code(s): N18.30 - Chronic kidney disease, stage 3 unspecified Status: Inactive Assessment and Plan: Baseline seems to fluctuate between 1.1-1.4. Renal function consistent with baseline at this time. (8) Depression: Code(s): F32.9 - Major depressive disorder, single episode, unspecified Status: Acute Assessment and Plan: She has had a lot of social issues since the COVID-19 pandemic due to feelings of isolation. She denies suicidal ideation. Please see subjective for further details. She has been provided with resources from the care center manager. She has already made some phone calls today to assistance programs and to reach out to friends/family for support. Subjective Date/time seen: 10/08/20 10:46 Interval history: Date of service: 10/08/2020 Yashira Vzaquez is 60-year-old female with a history of chronic HIV, CKD stage 3, anemia, hypertension, migraines, anxiety and depression who is seen in follow-up for UTI and headache. Overall she seems to be doing better today. She continues to complain of urinary symptoms including dysuria, urgency, and suprapubic discomfort. No flank pain or back pain. She says she has had pyelonephritis in the past and she knows that this is not it. She denies fever or chills. No nausea or vomiting. She said her migraine has resolved and at this point she just has
--- NOTE | 2020-10-08 23:43 | ECHO_ITS ---
Patient Info Name: Yashira Vazquez Age: 60 years : 1960 Gender: Female Ht: 70 in Wt: 148 lbs BSA: 1.82 m2 HR: 111 bpm BP: 111 / 71 mmHg Heart Rhythm: Sinus Rhythm Technical Quality: Fair Exam Date: 10/08/2020 2:30 PM Exam Location: [facility] Patient Status: Inpatient Admit Date: 10/08/2020 Staff Ordering Physician: Niecy Mckeon PA-C Climate Change Analyst: Omari Johnson, DEYANIRA, RT Attending Provider: Jennifer Fisher PA-C Referring Physician: Linda GARCIA; Exam Type: CA echo doppler color flow Study Info Indications R55 - Syncope and collapse Complete two-dimensional, color flow and Doppler transthoracic echocardiogram is performed. Summary 1. Complete two-dimensional, color flow and Doppler transthoracic echocardiogram is performed. 2. Left ventricular systolic function is normal, estimated at 60-65%. 3. The left ventricular diastolic function is normal. 4. Mildly sclerotic aortic valve which is not stenotic. Left Ventricle Left ventricular chamber dimension is normal. Left ventricular systolic function is normal, estimated at 60-65%. The left ventricular diastolic function is normal. Right Ventricle Right ventricular chamber dimension is normal. Left Atria Left atrial chamber dimension is normal. Right Atria Right atrial chamber dimension is normal. Aortic Valve The aortic valve is trileaflet. There is mild aortic valve sclerosis. There is no aortic valve stenosis. Pulmonic Valve The pulmonic valve is not well visualized. Mitral Valve The mitral valve has normal leaflets. Tricuspid Valve The tricuspid valve leaflets are normal. Pericardium/Pleural The pericardium appears normal. Aorta The aortic root size at the sinus of Valsalva is normal. Left Ventricular Outflow Tract Name Value Normal LVOT 2D LVOT Diameter 2.0 cm LVOT Doppler LVOT Peak Velocity 102 cm/s LVOT Peak Gradient 3 mmHg LVOT Mean Gradient 2 mmHg LVOT VTI 14 cm LVOT VTI/AV VTI Ratio 0.8 LVOT Stroke Volume 43 ml LVOT CO 4.0 l/min LVOT CI 2.2 l/min/m2 Mitral Valve Name Value Normal MV Doppler MV Decel Galax 736 cm/s2 MV PHT 26 ms MV Area (PHT) 8.6 cm2 4.0-5.0 MV Diastolic Function MV E Peak Velocity 65 cm/s MV A Peak Velocity 84 cm/s MV E/A 0.8 MV Decel Time 88 ms MV Annular TDI --
[2020-10-09] VITALS (10 sets, daily range): BP systolic 94–112; BP diastolic 59–83; PULSE 104–130; RESP 16–20; TEMP 36.3–37.1; O2SAT 93–98
[2020-10-09] MEDS: LEVOTHYROXINE SODIUM 150 MCG TABLET PO (05:32)
[2020-10-09 05:44] LABS: Hematocrit 35.7 % (37.0-47.0); Hemoglobin 11.4 g/dL (12.0-15.0); Mean Corpuscular HGB Conc 31.9 g/dl (32-36); Mean Corpuscular Hemoglobin 27.8 pg (26-34); Mean Corpuscular Volume 87.1 fl (80-100); Mean Platelet Volume 9.9 fl (7.4-10.4); Platelet Count Result 177 k/mm3 (150-375); Red Cell Distribution Width 15.2 % (11.5-14.5); White Blood Count 5.3 K/mm3 (4.5-10.0)
[2020-10-09 05:54] LABS: Anion Gap 9 mmol/L (8-16); Blood Urea Nitrogen 25 mg/dL (7-17); Calcium 8.7 mg/dL (8.4-10.2); Carbon Dioxide 26 mmol/L (22-30); Chloride 104 mmol/L (98-107); Estimated CRCL calculation 43 ml/min; Estimated Glomerular Filt Rate 42; Glucose 85 mg/dL (65-105); Potassium 3.7 mmol/L (3.4-5.0); Sodium 139 mmol/L (137-145)
[2020-10-09] MEDS: estradioL 1 MG TABLET PO (09:20)
--- NOTE | 2020-10-09 11:47 | WPDNEUROPN ---
Progress Note: A&P Additional Plan in addition to the other problems which are being treated prophylactic therapy for the migraine will be continued as such Review of Systems Review of Systems: All systems reviewed & are unremarkable except as noted in HPI and below Exam Const: General: cooperative, alert, awake, in distress and anxious Orientation/consciousness: oriented to person, oriented to place and oriented to time Eyes: General: appearance normal, both eyes and all related structures Neck: Neck: full ROM Resp: Auscultation: clear to auscultation bilaterally Cardio: Rhythm: regular rhythm Neuro: General: oriented to person, oriented to place and oriented to time Cranial nerves: Yes CN's II-XII intact bilaterally Cognition (Neuro): normal cognition Motor exam (neuro): 5/5 motor strength present throughout Sensory Exam: normal sensation Deep tendon reflexes (DTR's): Right triceps reflex intensity grade: 1+, Left triceps reflex intensity grade: 1+, Rt Biceps (C5, C6): 1+, Left biceps reflex intensity grade: 1+, Right brachioradialis reflex intensity grade: 1+, Left brachioradialis reflex intensity grade: 1+, Right patellar reflex intensity grade: 1+, Left patellar reflex intensity grade: 1+, Right ankle reflex intensity grade: 1+ and Left ankle reflex intensity grade: 1+ Plantar Reflex Responses: downgoing: bilateral Psych: Speech and movement: Clear speech present Affect: Sad affect present Thought process: Circumstantial thought process present Thought content: Yes Normal thought content present Insight: Fair insight present (Psych) Judgement: Fair judgement present (Psych) Objective Data Vital Signs Vital Signs: Vital Signs - 24 hr 10/08/20 12:00 10/08/20 16:00 10/08/20 17:50 Temperature 36.2 C L Pulse Rate 114 H 119 H 113 H Respiratory Rate 18 Blood Pressure 113/74 Pulse Oximetry 96 10/08/20 20:00 10/08/20 22:00 10/09/20 00:00 Temperature 36.4 C 36.3 C L Pulse Rate 115 H 118 H 112 H Respiratory Rate 20 20 Blood Pressure 97/74 L 102/65 Pulse Oximetry 98 98 10/09/20 04:00 10/09/20 08:00 10/09/20 10:00 Temperature 36.5 C 36.3 C L Pulse Rate 106 H 130 H 112 H Respiratory Rate 18 18 Blood Pressure 97/59 L 96/67 L 100/70 Pulse Oximetry 97 98 Intake/Output Intake/Output: Intake & Output 10/06/20 10/07/20 10/08/20 10/09/20 23:59 23:59 23:59 23:59 Intake Total 1690 2540 1060 Output Total 100 2350 900 Balance 1590 190 160 Meds/Results Medications: Active Medications Generic Name Dose Route Start Last Admin Trade Name Freq PRN Reason Stop Dose Admin Abacavir Sulfate 600 mg 10/10/20 09:00 Abacavir Sulfate 300 Mg Tablet PO DAILY SHAKIRA Acetaminophen 650 mg 10/07/20 22:40 10/08/20 09:16 Acetaminophen 325 Mg Tablet PO 650 mg Q6H PRN Administration Mild Pain (1-3) or Fever Hydrocodone Bitart/Acetaminophen 1 tab 10/07/20 23:33 10/08/20 20:04 Hydrocodone/Acetaminophen (*Crx) 5-325 Mg Tablet PO 1 tab Q6H PRN Administration Pain Rated 4-6 Cyclobenzaprine HCl 10 mg 10/07/20 23:32 Cyclobenzaprine Hcl 10 Mg Tablet BY MOUTH QPM PRN Muscle Spasm Diazepam 10 mg 10/07/20 23:40 10/08/20 16:37 Diazepam (*Crx) 5 Mg Tablet PO 10 mg BID PRN Administration Anxiety Diclofenac Sodium 1 applic 10/07/20 22:36 Diclofenac Sodium 1% 100 Gm Gel (*Bkc) TOPICAL QID PRN KNEE PAIN Estradiol 1 mg 10/08/20 09:00 10/09/20 09:20 Estradiol 1 Mg Tablet PO 1 mg DAILY SHAKIRA Administration Piperacillin Sod/Tazobactam Sod 2.25 gm in 50 mls @ 100 mls/hr 10/07/20 18:00 10/09/20 06:02 Zosyn 2.25 Gm/D5w 50 Ml IVPB Infused Q6HR SHAKIRA Infusion Levothyroxine Sodium 150 mcg 10/08/20 06:30 10/09/20 05:32 Levothyroxine Sodium 150 Mcg Tablet PO 150 mcg DAILY@0630 SHAKIRA Administration Mirtazapine 15 mg 10/07/20 23:10 10/08/20 20:04 Mirtazapine 15 Mg Tablet PO 15 mg HS [facility] Administr
[2020-10-09] MEDS: DICLOFENAC SODIUM 1% 100 GM GEL (*BKC) 1 APPLIC TOPICAL (13:26)
[2020-10-09] MEDS: SUMAtriptan SUCCINATE 25 MG TABLET PO (14:20)
--- NOTE | 2020-10-09 15:37 | PM.IMPN ---
Progress Note: A&P Assessment and Plan (1) Syncope: Code(s): R55 - Syncope and collapse Status: Acute Assessment and Plan: Reports syncope x3 on 10/07/20. Etiology for this is unclear, but suspect she was dehydrated as she reports inability to tolerate PO intake over the past few days due to her migraine. Echocardiogram EF 60-65% Carotid doppler with <50% stenosis bilaterally Monitor orthostatics Monitor on telemetry (2) Falls frequently: Code(s): R29.6 - Repeated falls Status: Acute Assessment and Plan: She has fallen down her stairs 3 times this week. No injuries. Head CT negative for acute findings. May have weakness due to uncontrolled hypothyroidism vs physical deconditioning due to sedentary lifestyle/isolation. Fall precautions PT/OT eval appreciated Workup as described above (3) Urinary tract infection: Code(s): N39.0 - Urinary tract infection, site not specified Status: Acute Assessment and Plan: Urine culture from 10/05 with ESBL. She had been prescribed antibiotics but had not filled them. She is afebrile and without leukocytosis. Continue IV Zosyn based on initial urine culture and sensitivity Repeat urine culture from 10/07 is pending. (4) Human immunodeficiency virus: Code(s): B20 - Human immunodeficiency virus [HIV] disease Status: Acute Assessment and Plan: Chronic. She is established with Infectious Disease at [facility]. Continue abacavir Ritonavir, prezista, etravirine is non-formulary. She does not have anyone to bring these medications in for her. This is day 3 without her medications (5) Hypothyroidism: Qualifiers: Hypothyroidism type: unspecified Qualified Code(s): E03.9 - Hypothyroidism, unspecified Code(s): E03.9 - Hypothyroidism, unspecified Status: Chronic Assessment and Plan: Her TSH is elevated >100 with T4 decreased at 0.22. She has not been taking her medications for several weeks as she ran out of her prescription and has not been able to get a refill. Resume her levothyroxine 150 mcg daily We will provide a refill prior to discharge Recommend repeat reflex TSH in 4-6 weeks. (6) Migraine headache: Code(s): G43.909 - Migraine, unspecified, not intractable, without status migrainosus Status: Acute Assessment and Plan: Resolved. Head CT negative. She was seen in consultation by neurology. Imitrex prn Consider zonegran for prophylaxis per neurology recommendations. (7) Chronic kidney disease, stage 3: Code(s): N18.30 - Chronic kidney disease, stage 3 unspecified Status: Inactive Assessment and Plan: Baseline seems to fluctuate between 1.1-1.4. Renal function consistent with baseline at this time. (8) Depression: Code(s): F32.9 - Major depressive disorder, single episode, unspecified Status: Acute Assessment and Plan: She has had a lot of social issues since the COVID-19 pandemic due to feelings of isolation. She denies suicidal ideation. Please see subjective for further details. She has been provided with resources from the child care education coordinator. She has already made some phone calls today to assistance programs and to reach out to friends/family for support. Time Spent With Patient Time with patient: Greater than 35 minutes Subjective Date/time seen: 10/09/20 14:50 Yashira Vazquez is 60-year-old female with a history of chronic HIV, CKD stage 3, anemia, hypertension, migraines, anxiety and depression who is seen in follow-up for UTI and headache. Patient stated she is doing okay today however she is still weak, stated that she has a hard time getting out of bed without help, and that she had still has dizziness. Patient also stated that she has has headache and nausea however this resolved today she also stated that she was short of breath but she could not tell me why. I talked t
[2020-10-09] MEDS: MIRTAZAPINE 15 MG TABLET PO (20:14)
[2020-10-10] VITALS (7 sets, daily range): BP systolic 100–108; BP diastolic 64–74; PULSE 106–114; RESP 16–18; TEMP 36.1–36.8; O2SAT 94–98
[2020-10-10 05:35] LABS: Basophils Percent Auto 0.4 % (0.2-1.2); Eosinophils Absolute Auto 0.1 K/mm3 (0-0.3); Eosinophils Percent Auto 1.3 % (0-4.4); Hematocrit 37.4 % (37.0-47.0); Immature Granulocyte Absolute 0.08 K/mm3 (0.00-0.031); Immature Granulocyte Percent A 1.2 % (0-0.5); Lymphocytes Absolute Auto 2.49 K/mm3 (0.9-3.2); Lymphocytes Percent Auto 35.8 % (18.3-44.2); Mean Corpuscular HGB Conc 32.1 g/dl (32-36); Mean Corpuscular Hemoglobin 27.4 pg (26-34); Mean Corpuscular Volume 85.4 fl (80-100); Mean Platelet Volume 10.3 fl (7.4-10.4); Monocytes Absolute Auto 0.5 K/mm3 (0.1-0.6); Monocytes Percent Auto 7.5 % (2.6-8.5); Neutrophils Absolute Auto 3.7 K/mm3 (1.3-6.7); Neutrophils Percent Auto 53.8 % (45.5-73.1); Platelet Count Result 183 k/mm3 (150-375); Red Blood Count 4.38 M/mm3 (4.2-5.4); Red Cell Distribution Width 15.3 % (11.5-14.5)
[2020-10-10 05:56] LABS: Alanine Aminotransferase 11 U/L (4-35); Albumin Level 3.8 g/dL (3.5-5.1); Alkaline Phosphatase 62 U/L (38-126); Anion Gap 11 mmol/L (8-16); Aspartate Amino Transferase 27 U/L (14-36); Bilirubin,Total 0.1 mg/dL (0.2-1.3); Blood Urea Nitrogen 25 mg/dL (7-17); Calcium 9.3 mg/dL (8.4-10.2); Carbon Dioxide 25 mmol/L (22-30); Chloride 102 mmol/L (98-107); Estimated CRCL calculation 37 ml/min; Estimated Glomerular Filt Rate 35; Glucose 91 mg/dL (65-105); Magnesium 1.6 mg/dL (1.6-2.3); Sodium 138 mmol/L (137-145)
[2020-10-10] MEDS: LEVOTHYROXINE SODIUM 150 MCG TABLET PO (05:57)
--- NOTE | 2020-10-10 08:00 | PM.IMPN ---
Progress Note: A&P Assessment and Plan (1) Syncope: Code(s): R55 - Syncope and collapse Status: Acute Assessment and Plan: Reports syncope x3 on 10/07/20. Etiology for this is unclear, but suspect she was dehydrated as she reports inability to tolerate PO intake over the past few days due to her migraine. Echocardiogram EF 60-65% Carotid doppler with <50% stenosis bilaterally Monitor orthostatics (2) Falls frequently: Code(s): R29.6 - Repeated falls Status: Acute Assessment and Plan: She has fallen down her stairs 3 times this week. No injuries. Head CT negative for acute findings. May have weakness due to uncontrolled hypothyroidism vs physical deconditioning due to sedentary lifestyle/isolation. Fall precautions PT/OT eval appreciated Workup as described above (3) Urinary tract infection: Code(s): N39.0 - Urinary tract infection, site not specified Status: Acute Assessment and Plan: Urine culture from 10/05 with ESBL. She had been prescribed antibiotics but had not filled them. She is afebrile and without leukocytosis. DC'd IV Zosyn based on initial urine culture and sensitivity Repeat urine culture from 10/07 is pending. Macrobid 100mg PO BID ordered (4) Human immunodeficiency virus: Code(s): B20 - Human immunodeficiency virus [HIV] disease Status: Acute Assessment and Plan: Chronic. She is established with Infectious Disease at [facility]. Continue abacavir Ritonavir, prezista, etravirine is non-formulary. She does not have anyone to bring these medications in for her. This is day 3 without her medications (5) Hypothyroidism: Qualifiers: Hypothyroidism type: unspecified Qualified Code(s): E03.9 - Hypothyroidism, unspecified Code(s): E03.9 - Hypothyroidism, unspecified Status: Chronic Assessment and Plan: Her TSH is elevated >100 with T4 decreased at 0.22. She has not been taking her medications for several weeks as she ran out of her prescription and has not been able to get a refill. Resume her levothyroxine 150 mcg daily We will provide a refill prior to discharge Recommend repeat reflex TSH in 4-6 weeks. (6) Migraine headache: Code(s): G43.909 - Migraine, unspecified, not intractable, without status migrainosus Status: Acute Assessment and Plan: Resolved. Head CT negative. She was seen in consultation by neurology. Imitrex prn Consider zonegran for prophylaxis per neurology recommendations. (7) Chronic kidney disease, stage 3: Code(s): N18.30 - Chronic kidney disease, stage 3 unspecified Status: Inactive Assessment and Plan: Baseline seems to fluctuate between 1.1-1.4. Renal function consistent with baseline at this time. (8) Depression: Code(s): F32.9 - Major depressive disorder, single episode, unspecified Status: Acute Assessment and Plan: She has had a lot of social issues since the COVID-19 pandemic due to feelings of isolation. She denies suicidal ideation. Please see subjective for further details. She has been provided with resources from the family day care worker. She has already made some phone calls today to assistance programs and to reach out to friends/family for support. Subjective Date/time seen: 10/10/20 08:00 Yashira Vazquez is 60-year-old female with a history of chronic HIV, CKD stage 3, anemia, hypertension, migraines, anxiety and depression who is seen in follow-up for UTI and headache. She does have complaints of not being able to eat or hold anything down, however, she orders and eats a tray. She also complains of not being able to stand, yet can walk to the bathroom by herself. She also complains of nausea, however, she does not vomit and is complaining of being nauseous before meals. Which the nausea seems to be resolved with eating. She also has been working with PT/OT whic
[2020-10-10] MEDS: diazePAM (*CRX) 5 MG TABLET 10 MG PO ×2 (09:17→17:19)
[2020-10-10] MEDS: HYDROcodone/acetaminophen (*CRX) 5-325 MG TABLET 1 TAB PO (09:18)
[2020-10-10] MEDS: estradioL 1 MG TABLET PO (09:19)
[2020-10-10] MEDS: ABACAVIR SULFATE 300 MG TABLET 600 MG PO (11:06)
--- NOTE | 2020-10-10 16:07 | PM.DS ---
DS: Admitting Diagnosis Admitting Diagnosis Admitting Diagnosis: Syncope DS: Discharge Diagnosis Discharge Diagnosis (1) Syncope: Code(s): R55 - Syncope and collapse Status: Acute Assessment and Plan: Reports syncope x3 on 10/07/20. Etiology for this is unclear, but suspect she was dehydrated as she reports inability to tolerate PO intake over the past few days due to her migraine. Echocardiogram EF 60-65% Carotid doppler with <50% stenosis bilaterally Monitor orthostatics (2) Falls frequently: Code(s): R29.6 - Repeated falls Status: Acute Assessment and Plan: She has fallen down her stairs 3 times this week. No injuries. Head CT negative for acute findings. May have weakness due to uncontrolled hypothyroidism vs physical deconditioning due to sedentary lifestyle/isolation. Fall precautions PT/OT eval appreciated Workup as described above (3) Urinary tract infection: Code(s): N39.0 - Urinary tract infection, site not specified Status: Acute Assessment and Plan: Urine culture from 10/05 with ESBL. She had been prescribed antibiotics but had not filled them. She is afebrile and without leukocytosis. Continue IV Zosyn based on initial urine culture and sensitivity Repeat urine culture from 10/07 is pending. Will convert to PO antibiotics (4) Human immunodeficiency virus: Code(s): B20 - Human immunodeficiency virus [HIV] disease Status: Acute Assessment and Plan: Chronic. She is established with Infectious Disease at [facility]. Continue abacavir Ritonavir, prezista, etravirine is non-formulary. She does not have anyone to bring these medications in for her. This is day 3 without her medications (5) Hypothyroidism: Qualifiers: Hypothyroidism type: unspecified Qualified Code(s): E03.9 - Hypothyroidism, unspecified Code(s): E03.9 - Hypothyroidism, unspecified Status: Chronic Assessment and Plan: Her TSH is elevated >100 with T4 decreased at 0.22. She has not been taking her medications for several weeks as she ran out of her prescription and has not been able to get a refill. Resume her levothyroxine 150 mcg daily We will provide a refill prior to discharge Recommend repeat reflex TSH in 4-6 weeks. (6) Migraine headache: Code(s): G43.909 - Migraine, unspecified, not intractable, without status migrainosus Status: Acute Assessment and Plan: Resolved. Head CT negative. She was seen in consultation by neurology. Imitrex prn Consider zonegran for prophylaxis per neurology recommendations. (7) Chronic kidney disease, stage 3: Code(s): N18.30 - Chronic kidney disease, stage 3 unspecified Status: Inactive Assessment and Plan: Baseline seems to fluctuate between 1.1-1.4. Renal function consistent with baseline at this time. (8) Depression: Code(s): F32.9 - Major depressive disorder, single episode, unspecified Status: Acute Assessment and Plan: She has had a lot of social issues since the COVID-19 pandemic due to feelings of isolation. She denies suicidal ideation. Please see subjective for further details. She has been provided with resources from the day care director. She has already made some phone calls today to assistance programs and to reach out to friends/family for support. DS: Summary Hospital Course Hospital Course: Yashira Vazquez is 60-year-old female with a history of chronic HIV, CKD stage 3, anemia, hypertension, migraines, anxiety and depression who is seen in follow-up for UTI and headache. She has been treated with IV antibiotics that were switched to PO since admission. She has also been working with PT/OT since admission as well. She was able to walk to the bathroom with minimal help. She stated that she is still a bit dizzy and that she is nauseous. She also stated that she is tolerating fo
[2020-10-10] MEDS: ACETAMINOPHEN 325 MG TABLET 650 MG PO (17:21)
--- NOTE | 2020-10-10 17:45 | PCCCNOTE ---
Pt wishes to appeal discharge d/t being continued N & V. Pt called [phone] left message with name and hospital number and room ext because she did not have her phone there.
--- NOTE | 2020-10-10 18:52 | PCCCNOTE ---
LICHA returned call and informed of appeal filed by pt. Number given [id number] Phone [phone]
[2020-10-10] MEDS: MIRTAZAPINE 15 MG TABLET PO (20:55)
[2020-10-11 05:00] VITALS: BP 115/75; PULSE 100; RESP 16; TEMP 36.1; O2SAT 99
[2020-10-11 05:32] VITALS: BP 102/81; BP 107/79; BP 115/75; PULSE 100; RESP 16; TEMP 36.1; O2SAT 99
[2020-10-11] MEDS: LEVOTHYROXINE SODIUM 150 MCG TABLET PO (06:26)
[2020-10-11] MEDS: ABACAVIR SULFATE 300 MG TABLET 600 MG PO (08:18)
[2020-10-11] MEDS: estradioL 1 MG TABLET PO (08:18)
[2020-10-11] MEDS: NITROFURANTOIN MONOHYD MACROCR 100 MG CAP PO ×2 (08:18→20:20)
[2020-10-11] MEDS: ACETAMINOPHEN 325 MG TABLET 650 MG PO (08:22)
[2020-10-11 10:00] VITALS: BP 115/67; PULSE 100; RESP 16; TEMP 36.4; O2SAT 96
[2020-10-11 12:31] LABS: Glucose Point of Care 99 mg/dl (65-105)
[2020-10-11 14:00] VITALS: BP 118/60; PULSE 88; RESP 16; TEMP 36.4; O2SAT 96
--- NOTE | 2020-10-11 16:05 | PM.IMPN ---
Progress Note: A&P Assessment and Plan (1) Syncope: Code(s): R55 - Syncope and collapse Status: Acute Assessment and Plan: Reports syncope x3 on 10/07/20. Etiology for this is unclear, but suspect she was dehydrated as she reports inability to tolerate PO intake over the past few days due to her migraine. Echocardiogram EF 60-65% Carotid doppler with <50% stenosis bilaterally Monitor orthostatics (2) Falls frequently: Code(s): R29.6 - Repeated falls Status: Acute Assessment and Plan: She has fallen down her stairs 3 times this week. No injuries. Head CT negative for acute findings. May have weakness due to uncontrolled hypothyroidism vs physical deconditioning due to sedentary lifestyle/isolation. Fall precautions PT/OT eval appreciated Workup as described above (3) Urinary tract infection: Code(s): N39.0 - Urinary tract infection, site not specified Status: Acute Assessment and Plan: Urine culture from 10/05 with ESBL. She had been prescribed antibiotics but had not filled them. She is afebrile and without leukocytosis. DC'd IV Zosyn based on initial urine culture and sensitivity Repeat urine culture from 10/07 K. pneumonia Macrobid 100mg PO BID ordered (4) Human immunodeficiency virus: Code(s): B20 - Human immunodeficiency virus [HIV] disease Status: Acute Assessment and Plan: Chronic. She is established with Infectious Disease at [facility]. Continue abacavir Ritonavir, prezista, etravirine is non-formulary. She does not have anyone to bring these medications in for her. This is day 3 without her medications (5) Hypothyroidism: Qualifiers: Hypothyroidism type: unspecified Qualified Code(s): E03.9 - Hypothyroidism, unspecified Code(s): E03.9 - Hypothyroidism, unspecified Status: Chronic Assessment and Plan: Her TSH is elevated >100 with T4 decreased at 0.22. She has not been taking her medications for several weeks as she ran out of her prescription and has not been able to get a refill. Resume her levothyroxine 150 mcg daily We will provide a refill prior to discharge Recommend repeat reflex TSH in 4-6 weeks. (6) Migraine headache: Code(s): G43.909 - Migraine, unspecified, not intractable, without status migrainosus Status: Acute Assessment and Plan: Resolved. Head CT negative. She was seen in consultation by neurology. Imitrex prn Consider zonegran for prophylaxis per neurology recommendations. (7) Chronic kidney disease, stage 3: Code(s): N18.30 - Chronic kidney disease, stage 3 unspecified Status: Inactive Assessment and Plan: Baseline seems to fluctuate between 1.1-1.4. Renal function consistent with baseline at this time. (8) Depression: Code(s): F32.9 - Major depressive disorder, single episode, unspecified Status: Acute Assessment and Plan: She has had a lot of social issues since the COVID-19 pandemic due to feelings of isolation. She denies suicidal ideation. Please see subjective for further details. She has been provided with resources from the healthcare administrative assistant. She has already made some phone calls today to assistance programs and to reach out to friends/family for support. Subjective Date/time seen: 10/11/20 15:15 Interval history: Yashira Vazquez is 60-year-old female with a history of chronic HIV, CKD stage 3, anemia, hypertension, migraines, anxiety and depression who is seen in follow-up for UTI and headache. Patient has the same complaints as yesterday with nausea and vomiting, however she was eating apples with peanut butter. She also stated that she is unable to stand and make food. She is looking into a place to go for rehab. She also stated that she just wants to be independent again like she used to be. She also said that she is an Asymptomatic sick person. Patient denied ch
[2020-10-11 18:00] VITALS: BP 118/64; PULSE 100; RESP 16; TEMP 36.4; O2SAT 98
[2020-10-11] MEDS: MIRTAZAPINE 15 MG TABLET PO (20:20)
[2020-10-11 20:59] VITALS: BP 116/77; PULSE 110; RESP 18; TEMP 36.3; O2SAT 99
[2020-10-12 02:00] VITALS: BP 118/79; PULSE 106; RESP 16; TEMP 36.4; O2SAT 98
[2020-10-12 05:48] VITALS: BP 103/84; PULSE 113; RESP 18; TEMP 36.5; O2SAT 96
[2020-10-12] MEDS: LEVOTHYROXINE SODIUM 150 MCG TABLET PO (05:52)
[2020-10-12 06:39] LABS: Hematocrit 34.6 % (37.0-47.0); Mean Corpuscular HGB Conc 31.8 g/dl (32-36); Mean Corpuscular Hemoglobin 27.5 pg (26-34); Mean Corpuscular Volume 86.5 fl (80-100); Mean Platelet Volume 10.2 fl (7.4-10.4); Platelet Count Result 186 k/mm3 (150-375); Red Cell Distribution Width 15.3 % (11.5-14.5); White Blood Count 5.1 K/mm3 (4.5-10.0)
[2020-10-12 06:51] LABS: Anion Gap 9 mmol/L (8-16); Blood Urea Nitrogen 28 mg/dL (7-17); Carbon Dioxide 27 mmol/L (22-30); Chloride 102 mmol/L (98-107); Estimated CRCL calculation 50 ml/min; Estimated Glomerular Filt Rate 50; Glucose 92 mg/dL (65-105); Magnesium 1.7 mg/dL (1.6-2.3); Potassium 3.9 mmol/L (3.4-5.0); Sodium 138 mmol/L (137-145)
[2020-10-12] MEDS: NITROFURANTOIN MONOHYD MACROCR 100 MG CAP PO ×2 (09:44→19:51)
[2020-10-12] MEDS: estradioL 1 MG TABLET PO (09:44)
[2020-10-12] MEDS: ABACAVIR SULFATE 300 MG TABLET 600 MG PO (09:45)
[2020-10-12] MEDS: HYDROcodone/acetaminophen (*CRX) 5-325 MG TABLET 1 TAB PO (09:49)
[2020-10-12 10:00] VITALS: BP 107/60; PULSE 118; RESP 16; TEMP 36.6; O2SAT 98
--- NOTE | 2020-10-12 10:40 | PCOTNOTE ---
Patient was seen this date for skilled OT session, before completing ADL tasks, Petroleum Sampler entered room to share information and make patient aware of medical status that she is cleared to be discharged. Patient states she that she does not feel ready or strong enough to go home. After Petroleum Sampler left room, patient began participation in OT session with OBINNA. During session completion, patient shares with OBINNA, I don't know what I'm going to do, I'm not strong enough to go home. I'm just ready to at this point, I don't know what else to do, I might as well kill myself. YEBOAH calmly talks with patient about how pt's family and friends care for her and would hate for that to happen. Patient interjects stating, They don't f*cking care. I don't have a good relationship with my kids, they're upset with me, and my sister is in [place], I'm all by myself and I don't know how I'm going to do all of this by myself (referring to washing face/hands, armpits, and brushing of teeth). OBINNA attempts to reassure patient stating Home Health has been ordered to help her with these things at home. Patient states I'm just depressed and I don't know what else I can do at this point. YEBOAH completed ADL tasks with patient, then moved as many objects away from patient as possible before notifying RN. RN then entered and started suicide assessment and procedure to attend to the situation.
[2020-10-12] MEDS: diazePAM (*CRX) 5 MG TABLET 10 MG PO ×2 (11:03→18:51)
[2020-10-12] MEDS: ONDANSETRON HCL ODT 4 MG TABLET PO (11:22)
--- NOTE | 2020-10-12 13:54 | P.PNIM_ITS ---
Progress Note: A&P Assessment and Plan (1) Syncope: Code(s): R55 - Syncope and collapse Status: Acute Assessment and Plan: Reports syncope x3 on 10/07/20. Etiology for this is unclear, but suspect she was dehydrated as she reports inability to tolerate PO intake over the past few days due to her migraine. * Echocardiogram EF 60-65% * Carotid doppler with <50% stenosis bilaterally * Monitor orthostatics (2) Falls frequently: Code(s): R29.6 - Repeated falls Status: Acute Assessment and Plan: She has fallen down her stairs 3 times this week. No injuries. Head CT negative for acute findings. May have weakness due to uncontrolled hypothyroidism vs physical deconditioning due to sedentary lifestyle/isolation. * Fall precautions * PT/OT eval appreciated * Workup as described above (3) Urinary tract infection: Code(s): N39.0 - Urinary tract infection, site not specified Status: Acute Assessment and Plan: Urine culture from 10/05 with ESBL. She had been prescribed antibiotics but had not filled them. She is afebrile and without leukocytosis. * DC'd IV Zosyn based on initial urine culture and sensitivity * Repeat urine culture from 10/07 K. pneumonia * Macrobid 100mg PO BID ordered (4) Human immunodeficiency virus: Code(s): B20 - Human immunodeficiency virus [HIV] disease Status: Acute Assessment and Plan: Chronic. She is established with Infectious Disease at [facility]. * Continue abacavir * Ritonavir, prezista, etravirine is non-formulary. She does not have anyone to bring these medications in for her. * This is day 3 without her medications (5) Hypothyroidism: Qualifiers: Hypothyroidism type: unspecified Qualified Code(s): E03.9 - Hypothyroidism, unspecified Code(s): E03.9 - Hypothyroidism, unspecified Status: Chronic Assessment and Plan: Her TSH is elevated >100 with T4 decreased at 0.22. She has not been taking her medications for several weeks as she ran out of her prescription and has not been able to get a refill. * Resume her levothyroxine 150 mcg daily * We will provide a refill prior to discharge * Recommend repeat reflex TSH in 4-6 weeks. (6) Migraine headache: Code(s): G43.909 - Migraine, unspecified, not intractable, without status migrainosus Status: Acute Assessment and Plan: Resolved. Head CT negative. She was seen in consultation by neurology. * Imitrex prn * Consider zonegran for prophylaxis per neurology recommendations. (7) Chronic kidney disease, stage 3: Code(s): N18.30 - Chronic kidney disease, stage 3 unspecified Status: Inactive Assessment and Plan: Baseline seems to fluctuate between 1.1-1.4. Renal function consistent with baseline at this time. (8) Depression: Code(s): F32.9 - Major depressive disorder, single episode, unspecified Status: Acute Assessment and Plan: She has had a lot of social issues since the COVID-19 pandemic due to feelings of isolation. She denies suicidal ideation. Please see subjective for further details. She has been provided with resources from the foster care case manager. She has already made some phone calls today to assistance programs and to reach out to friends/family for support. * Talked to the patient about further resources * Patient called to get an outside mental health MD * Care coordination also helped provide her with further options and control
--- NOTE | 2020-10-12 13:54 | PM.IMPN ---
Progress Note: A&P Assessment and Plan (1) Syncope: Code(s): R55 - Syncope and collapse Status: Acute Assessment and Plan: Reports syncope x3 on 10/07/20. Etiology for this is unclear, but suspect she was dehydrated as she reports inability to tolerate PO intake over the past few days due to her migraine. Echocardiogram EF 60-65% Carotid doppler with <50% stenosis bilaterally Monitor orthostatics (2) Falls frequently: Code(s): R29.6 - Repeated falls Status: Acute Assessment and Plan: She has fallen down her stairs 3 times this week. No injuries. Head CT negative for acute findings. May have weakness due to uncontrolled hypothyroidism vs physical deconditioning due to sedentary lifestyle/isolation. Fall precautions PT/OT eval appreciated Workup as described above (3) Urinary tract infection: Code(s): N39.0 - Urinary tract infection, site not specified Status: Acute Assessment and Plan: Urine culture from 10/05 with ESBL. She had been prescribed antibiotics but had not filled them. She is afebrile and without leukocytosis. DC'd IV Zosyn based on initial urine culture and sensitivity Repeat urine culture from 10/07 K. pneumonia Macrobid 100mg PO BID ordered (4) Human immunodeficiency virus: Code(s): B20 - Human immunodeficiency virus [HIV] disease Status: Acute Assessment and Plan: Chronic. She is established with Infectious Disease at [facility]. Continue abacavir Ritonavir, prezista, etravirine is non-formulary. She does not have anyone to bring these medications in for her. This is day 3 without her medications (5) Hypothyroidism: Qualifiers: Hypothyroidism type: unspecified Qualified Code(s): E03.9 - Hypothyroidism, unspecified Code(s): E03.9 - Hypothyroidism, unspecified Status: Chronic Assessment and Plan: Her TSH is elevated >100 with T4 decreased at 0.22. She has not been taking her medications for several weeks as she ran out of her prescription and has not been able to get a refill. Resume her levothyroxine 150 mcg daily We will provide a refill prior to discharge Recommend repeat reflex TSH in 4-6 weeks. (6) Migraine headache: Code(s): G43.909 - Migraine, unspecified, not intractable, without status migrainosus Status: Acute Assessment and Plan: Resolved. Head CT negative. She was seen in consultation by neurology. Imitrex prn Consider zonegran for prophylaxis per neurology recommendations. (7) Chronic kidney disease, stage 3: Code(s): N18.30 - Chronic kidney disease, stage 3 unspecified Status: Inactive Assessment and Plan: Baseline seems to fluctuate between 1.1-1.4. Renal function consistent with baseline at this time. (8) Depression: Code(s): F32.9 - Major depressive disorder, single episode, unspecified Status: Acute Assessment and Plan: She has had a lot of social issues since the COVID-19 pandemic due to feelings of isolation. She denies suicidal ideation. Please see subjective for further details. She has been provided with resources from the career services director. She has already made some phone calls today to assistance programs and to reach out to friends/family for support. Talked to the patient about further resources Patient called to get an outside mental health MD Care coordination also helped provide her with further options and control Subjective Date/time seen: 10/12/20 10:00 Interval history: Yashira Vazquez is 60-year-old female with a history of chronic HIV, CKD stage 3, anemia, hypertension, migraines, anxiety and depression who is seen in follow-up for UTI and headache. I was called down to the room today because the patine stated that she was going to kill herself when she heard that her appeal was not granted and that she would need to be discharged. I went to talk to t
[2020-10-12 14:00] VITALS: BP 110/62; PULSE 100; RESP 16; TEMP 36.6; O2SAT 98
[2020-10-12 18:00] VITALS: BP 114/80; PULSE 114; RESP 16; TEMP 36.3; O2SAT 99
[2020-10-12] MEDS: MIRTAZAPINE 15 MG TABLET PO (19:51)
[2020-10-12 20:34] VITALS: BP 103/74; PULSE 117; RESP 18; TEMP 35.8; O2SAT 98
[2020-10-13 00:28] VITALS: BP 117/82; PULSE 110; RESP 18; TEMP 36; O2SAT 100
[2020-10-13 04:36] VITALS: BP 127/78; PULSE 107; RESP 18; TEMP 36.1; O2SAT 98
[2020-10-13] MEDS: HYDROcodone/acetaminophen (*CRX) 5-325 MG TABLET 1 TAB PO (06:11)
[2020-10-13] MEDS: LEVOTHYROXINE SODIUM 150 MCG TABLET PO (06:12)
[2020-10-13] MEDS: ABACAVIR SULFATE 300 MG TABLET 600 MG PO (08:13)
[2020-10-13] MEDS: estradioL 1 MG TABLET PO (08:13)
[2020-10-13] MEDS: NITROFURANTOIN MONOHYD MACROCR 100 MG CAP PO (08:13)
== END 2020-10-13 09:50 | disposition home health service (06) | DRG 690 ==
LOC: ANHED 13:11 → ANH2MED 13:45
PROVIDERS: Emergency Medicine Emergency Medical Services; Nurse Practitioner; Physician Assistant; Psychiatry & Neurology Neurology; Admitting Provider Internal Medicine; Emergency Provider Emergency Medicine; PCP Physician Assistant; Visit Provider Internal Medicine
DX: N39.0 Urinary tract infection, site not specified (principal); B96.20 Unspecified Escherichia coli [E. coli] as the cause of diseases classified elsewhere; E86.0 Dehydration; Z21 Asymptomatic human immunodeficiency virus [HIV] infection status; R55 Syncope and collapse; R29.6 Repeated falls; G43.909 Migraine, unspecified, not intractable, without status migrainosus; I12.9 Hypertensive chronic kidney disease with stage 1 through stage 4 chronic kidney disease, or unspecified chronic kidney disease; N18.30 Chronic kidney disease, stage 3 unspecified; E03.9 Hypothyroidism, unspecified; F32.9 Major depressive disorder, single episode, unspecified; D64.9 Anemia, unspecified; F41.9 Anxiety disorder, unspecified; W10.8XXA Fall (on) (from) other stairs and steps, initial encounter; M19.90 Unspecified osteoarthritis, unspecified site; Z66 Do not resuscitate; Z96.653 Presence of artificial knee joint, bilateral; Z91.19 Patient's noncompliance with other medical treatment and regimen; Z90.49 Acquired absence of other specified parts of digestive tract; Z90.710 Acquired absence of both cervix and uterus; Z86.19 Personal history of other infectious and parasitic diseases
CPT/HCPCS: 36415; 70450; 70486; 71046; 72100; 72125; 73030; 73502; 80048; 80053; 80203; 80307; 81001; 82948; 83735; 84439; 84443; 85025; 85027; 87077; 87086; 87088; 87186; 93005; 93306; 93880; 96360; 96365; 96367; 96368; 96375; 96376; 97110; 97116; 97161; 97165; 97530; 97535; 99284; 99285; A9270; G0378; J0131; J0696; J1170; J2060; J2543; J2765; J7030; J7120

== ENCOUNTER 2020-10-22 09:49 | Emergency (ER) | payer MEDICARE, SELFPAY ==
--- NOTE | ~2020-10-22 | CT_ITS ---
EXAMINATION: CT brain wo con DATE: 10/22/2020 10:38 INDICATION: Headache. Trauma. TECHNIQUE: Computed tomography (CT) of the head was performed without intravenous contrast. The mA wa s adjusted according to patient size. Iterative reconstruction technique was employed. The dose-lengt h product was 605.33 mGy-cm. COMPARISON: Head CT 10/07/2020 FINDINGS: There is no intracranial hemorrhage, acute infarction, or abnormal intracranial mass lesion . There are scattered areas of low attenuation in the cerebral white matter, which is within normal l imits for the patient's age. The ventricles are normal in size. There is mucosal thickening in the pa ranasal sinuses including complete opacification of left sphenoid sinus. There is thickening and scle rosis of the salinas of the left sphenoid and the posterior left ethmoid sinuses, consistent with chron ic sinusitis. The mastoid air cells are normal. The orbits are normal. IMPRESSION: 1. Normal aging brain. 2. Chronic sinusitis. Reviewed, dictated and finalized at location A.
[2020-10-22 09:48] VITALS: BP 151/96; PULSE 114; RESP 16; TEMP 36.7; O2SAT 100
[2020-10-22] MEDS: KETOROLAC 30 MG/ML VIAL (*BKC) IV PUSH (10:59)
[2020-10-22 11:04] LABS: Basophils Percent Auto 0.3 % (0.2-1.2); Eosinophils Percent Auto 0.3 % (0-4.4); Hematocrit 33.9 % (37.0-47.0); Hemoglobin 10.7 g/dL (12.0-15.0); Immature Granulocyte Absolute 0.02 K/mm3 (0.00-0.031); Immature Granulocyte Percent A 0.5 % (0-0.5); Lymphocytes Absolute Auto 1.31 K/mm3 (0.9-3.2); Lymphocytes Percent Auto 35.4 % (18.3-44.2); Mean Corpuscular HGB Conc 31.6 g/dl (32-36); Mean Corpuscular Volume 85.4 fl (80-100); Mean Platelet Volume 9.2 fl (7.4-10.4); Monocytes Absolute Auto 0.5 K/mm3 (0.1-0.6); Monocytes Percent Auto 12.4 % (2.6-8.5); Neutrophils Absolute Auto 1.9 K/mm3 (1.3-6.7); Neutrophils Percent Auto 51.1 % (45.5-73.1); Platelet Count Result 267 k/mm3 (150-375); Red Blood Count 3.97 M/mm3 (4.2-5.4); Red Cell Distribution Width 14.9 % (11.5-14.5); White Blood Count 3.7 K/mm3 (4.5-10.0)
[2020-10-22 11:13] LABS: Anion Gap 11 mmol/L (8-16); Blood Urea Nitrogen 19 mg/dL (7-17); Calcium 9.4 mg/dL (8.4-10.2); Carbon Dioxide 26 mmol/L (22-30); Chloride 102 mmol/L (98-107); Estimated CRCL calculation 47 ml/min; Estimated Glomerular Filt Rate 46; Glucose 99 mg/dL (65-105); Sodium 139 mmol/L (137-145)
[2020-10-22 12:10] LABS: Add Urine Microscopic? YES; Appearance Urine Clear (Clear); Bilirubin Urine Negative (Negative); Blood Urine 1+ (Negative); Color Urine Yellow (Yellow); Glucose Urine UA Negative (Negative); Ketones Urine Negative (Negative); Leukocyte Esterase Ur Trace LEU/UL (Negative); Mucus Urine Few /lpf; Nitrate Urine Negative (Negative); Protein Urine 1+ mg/dL (Negative); Specific Grav Ur 1.019 (1.001-1.035); Squamous Epithelial Cell Urine Few /hpf (Few); Urobilinogen Urine Negative mg/dL (<2.0); WBC Urine 31-50 /hpf
[2020-10-22] MEDS: NITROFURANTOIN MONOHYD MACROCR 100 MG CAP PO (12:35)
--- NOTE | 2020-10-22 12:47 | ED.GENADULT ---
HPI - General Adult General Chief complaint: Headache Stated complaint: NAUSEA,ALBRIGHT,FALL Time Seen by Provider: 10/22/20 10:00 History of Present Illness HPI narrative: Patient is a 60-year-old female who frequents the ER after falling down 14 steps. She was recently admitted to the hospital for an ESBL positive UTI as well as a syncope work-up. During the course of her stay she was found to have psychiatric and social service needs. Patient was able to be discharged home. Patient reports she did not fill her antibiotics to treat her UTI after 1 admission and did not receive antibiotics after the second admission, and she still having some discomfort when she urinates. No fevers or chills or sweats. Reports migraine headache at this time which is typical of her complaint. Patient has no new numbness or tingling to an arm or leg. No focal weakness. She is oriented x3 with clear speech. Related Data Home Medications Medication Instructions Recorded Confirmed Prezista 800 mg PO DAILY 05/02/20 10/07/20 abacavir [Ziagen] 600 mg PO DAILY 05/02/20 10/07/20 acetaminophen 1,000 mg PO Q6H PRN 05/02/20 10/07/20 diclofenac sodium 1 ea TOPICAL QID PRN 05/02/20 10/07/20 estradiol [Estrace] 1 mg PO DAILY 05/02/20 10/07/20 levothyroxine 150 mcg PO DAILY 05/02/20 10/07/20 mirtazapine 15 mg PO HS 05/02/20 10/07/20 ritonavir 100 mg PO DAILY 05/02/20 10/07/20 cyclobenzaprine 10 mg QPM PRN 10/07/20 10/07/20 diazepam 10 mg PO BID PRN 10/07/20 10/07/20 sumatriptan succinate 25 mg PO PER PKG DIR PRN 10/07/20 10/07/20 Allergies Allergy/AdvReac Type Severity Reaction Status Date / Time latex Allergy Mild Rash Verified 10/22/20 09:53 Sulfa (Sulfonamide Allergy Mild HIVES, RASH Verified 10/22/20 09:53 Antibiotics) morphine AdvReac Unknown Nausea and Verified 10/22/20 09:53 Vomiting Review of Systems Review of Systems: All systems reviewed & are unremarkable except as noted in HPI and below Constitutional: Constitutional: Denies chills and Denies fever(s) Eyes: Eyes: Denies change in vision and Reports photophobia ENT: Denies nasal congestion and Denies sore throat Cardiovascular: Cardiovascular: Denies chest pain, Denies rapid heart rate and Denies radiating jaw, neck or arm pain Gastrointestinal: Gastrointestinal: Denies abdominal pain, Denies nausea and Denies vomiting Neurologic: Reports syncope, Reports headache(s), Denies focal weakness and Denies numbness PMFSH Past Medical History Medical History (Updated 10/22/20 @ 12:52 by Antony Agustin MD) Anemia Anxiety Arthritis Chronic kidney disease, stage 3 Baseline creatinine ranges between 1.1 and 1.40. Depression Hepatitis C Human immunodeficiency virus Hypertension Hypothyroidism Migraine headache Nephrolithiasis Seizure X2. Surgical History Surgical History History of appendectomy History of bilateral knee replacement History of cholecystectomy History of hysterectomy Family History Family History Other Family history unknown Social History Social History Social History: The patient lives in a townhouse in [place]. She is not currently working. She has 2 grown children, a son and a daughter, but they do not keep in touch very often. No alcohol, tobacco, or illicit substance use. At this time she does not designate a surrogate decision maker. Code status: Do not resuscitate. Exam Narrative: Exam Narrative: GENERAL: Well-appearing, well-nourished, and in no acute distress. HEAD: Normocephalic, atraumatic. EYES: PERRL and EOMI. ENT: Mucous membranes moist. CHEST: Clear to auscultation. No respiratory distress. HEART: Regular rate and rhythm. Normal peripheral pulses. ABDOMEN: Soft, nontender, nondistended. EXTREMITIES: Normal range of motion. No edema. NEURO: No focal deficits. Al
[2020-10-22 13:13] VITALS: BP 106/83; PULSE 79; RESP 16; O2SAT 100
== END 2020-10-22 13:14 | disposition home or self-care (01) ==
PROVIDERS: Emergency Provider Emergency Medicine; PCP Physician Assistant
DX: N39.0 Urinary tract infection, site not specified (principal); N18.30 Chronic kidney disease, stage 3 unspecified; I12.9 Hypertensive chronic kidney disease with stage 1 through stage 4 chronic kidney disease, or unspecified chronic kidney disease; E03.9 Hypothyroidism, unspecified; F41.9 Anxiety disorder, unspecified; F32.9 Major depressive disorder, single episode, unspecified; W10.9XXA Fall (on) (from) unspecified stairs and steps, initial encounter
CPT/HCPCS: 36415; 51701; 70450; 80048; 81001; 85025; 87086; 96374; 99284; A9270; J1885

== ENCOUNTER 2020-10-27 11:37 | Emergency (ER) | payer MEDICARE, SELFPAY ==
--- NOTE | ~2020-10-27 | CT_ITS ---
EXAMINATION: CT brain wo con INDICATION: Headache COMPARISON: 10/22/2020 TECHNIQUE: Standard unenhanced head CT. The dose-length product (DLP) was 605.33 mGy-cm. The mA was a djusted according to patient size. Iterative reconstruction technique was employed. FINDINGS: There is no acute intraparenchymal hemorrhage. No evidence of mass lesion. No evidence of a cute infarction. There is mild periventricular and subcortical hypodensity probably related to small vessel ischemic disease. There is mild prominence of the sulci and ventricles related to cerebral atr ophy. Intracranial calcified cerebral atherosclerosis is noted. There are no extra-axial collections. There is no mass effect or midline shift. The orbits and soft tissues are unremarkable. Again noted is thickening and sclerosis of the salinas of the left sphenoid and posterior ethmoid sinuses with comp lete opacification, consistent with chronic sinusitis IMPRESSION: 1. No acute intracranial abnormality. 2. Age related findings. Reviewed, dictated and finalized at location A.
--- NOTE | ~2020-10-27 | CT_ITS ---
EXAMINATION: CT cervical spine wo con DATE: 10/27/2020 13:17 INDICATION: Neck pain TECHNIQUE: Computed tomography (CT) of the cervical spine was performed without intravenous contrast. The dose-length product (DLP) was 256.03 mGy-cm. Automated exposure control and iterative reconstruc tion technique were employed. COMPARISON: 10/05/2020 FINDINGS: The vertebral body heights and alignment are normal. There is no fracture. The odontoid is intact. There is mild intervertebral disc space height in the mid cervical spine the prevertebral sof t tissues are normal. Small degenerative osteophytes project from the anterior endplates of multiple vertebral bodies. There is mild multilevel facet and uncovertebral joint osteoarthritis. IMPRESSION: 1. Mild cervical spondylosis without acute findings or significant interval change. Reviewed, dictated and finalized at location A. IMPRESSION: 1. Mild cervical spondylosis without acute findings or significant interval inocencio nge.
[2020-10-27 11:37] VITALS: BP 119/83; PULSE 99; RESP 16; TEMP 36.5; O2SAT 99
[2020-10-27] MEDS: ACETAMINOPHEN 325 MG TABLET 650 MG PO (13:02)
[2020-10-27 13:32] VITALS: TEMP 36.5
--- NOTE | 2020-10-27 13:48 | ED.FALL ---
HPI - Fall General Chief Complaint: Fall Stated Complaint: fall Time Seen by Provider: 10/27/20 12:51 Source: patient and EMS Mode of arrival: EMS Limitations: no limitations History of Present Illness HPI Narrative: Patient is a 60-year-old female who presents after falling down 14 stairs today per EMS at home noting that she tripped patient notes aching pain to the head and neck. Patient notes she tripped falling down the stairs which is common for her she has had frequent visits to the ER for this. She denies syncope loss of consciousness. Patient notes she had felt fine prior to the fall. Patient denies other injuries or complaints. On arrival patient in the room in no distress Related Data Home Medications Medication Instructions Recorded Confirmed Prezista 800 mg PO DAILY 05/02/20 10/07/20 abacavir [Ziagen] 600 mg PO DAILY 05/02/20 10/07/20 acetaminophen 1,000 mg PO Q6H PRN 05/02/20 10/07/20 diclofenac sodium 1 ea TOPICAL QID PRN 05/02/20 10/07/20 estradiol [Estrace] 1 mg PO DAILY 05/02/20 10/07/20 levothyroxine 150 mcg PO DAILY 05/02/20 10/07/20 mirtazapine 15 mg PO HS 05/02/20 10/07/20 ritonavir 100 mg PO DAILY 05/02/20 10/07/20 cyclobenzaprine 10 mg QPM PRN 10/07/20 10/07/20 diazepam 10 mg PO BID PRN 10/07/20 10/07/20 sumatriptan succinate 25 mg PO PER PKG DIR PRN 10/07/20 10/07/20 Allergies Allergy/AdvReac Type Severity Reaction Status Date / Time latex Allergy Mild Rash Verified 10/27/20 12:39 Sulfa (Sulfonamide Allergy Mild HIVES, RASH Verified 10/27/20 12:39 Antibiotics) morphine AdvReac Unknown Nausea and Verified 10/27/20 12:39 Vomiting Review of Systems Review of Systems: All systems reviewed & are unremarkable except as noted in HPI and below PMFSH Past Medical History Medical History Anemia Anxiety Arthritis Chronic kidney disease, stage 3 Baseline creatinine ranges between 1.1 and 1.40. Depression Hepatitis C Human immunodeficiency virus Hypertension Hypothyroidism Migraine headache Nephrolithiasis Seizure X2. Surgical History Surgical History History of appendectomy History of bilateral knee replacement History of cholecystectomy History of hysterectomy Family History Family History Other Family history unknown Social History Social History Social History: The patient lives in a townhouse in [place]. She is not currently working. She has 2 grown children, a son and a daughter, but they do not keep in touch very often. No alcohol, tobacco, or illicit substance use. At this time she does not designate a surrogate decision maker. Code status: Do not resuscitate. Gender identity (if verbalized by the patient): Female Exam Narrative: Exam Narrative: GENERAL: Well-appearing, well-nourished, and in no acute distress. HEAD: Normocephalic, atraumatic. EYES: PERRLA and EOMI. ENT: Nares clear, no rhinorrhea or epistaxis. Mucous membranes moist. NECK: Supple. No adenopathy or masses. CHEST: Clear to auscultation. No respiratory distress. No wheezes rales or rhonchi HEART: Regular rate and rhythm. No murmur heard. EXTREMITIES: Normal range of motion. No edema. Midline cervical tenderness no thoracic or lumbar tenderness SKIN: Warm, dry, no rash. NEURO: No focal deficits. Alert and oriented x3. Cranial nerves II through XII grossly intact PSYCH: Normal mood and affect. Course Course Emergency Course: Patient evaluated after fall no high risk findings will be discharged home with outpatient follow-up felt appropriate for reevaluation on outpatient basis Vital Signs Vital signs: Vital Signs Temperature 97.7 F 10/27/20 11:37 Pulse Rate 99 10/27/20 11:37 Respiratory Rate 16 10/27/20 11:37 Blood Pressure 119/83 10/27/20 1
[2020-10-27] MEDS: KETOROLAC (*BKC) 60 MG/2 ML VIAL 30 MG IM (14:29)
[2020-10-27 14:32] VITALS: BP 116/87; PULSE 90; RESP 18; O2SAT 100
== END 2020-10-27 14:34 | disposition home or self-care (01) ==
PROVIDERS: Emergency Provider Emergency Medicine; PCP Physician Assistant
DX: S09.90XA Unspecified injury of head, initial encounter (principal); S16.1XXA Strain of muscle, fascia and tendon at neck level, initial encounter; F41.9 Anxiety disorder, unspecified; F32.9 Major depressive disorder, single episode, unspecified; B20 Human immunodeficiency virus [HIV] disease; E03.9 Hypothyroidism, unspecified; I12.9 Hypertensive chronic kidney disease with stage 1 through stage 4 chronic kidney disease, or unspecified chronic kidney disease; N18.30 Chronic kidney disease, stage 3 unspecified; W10.9XXA Fall (on) (from) unspecified stairs and steps, initial encounter
CPT/HCPCS: 70450; 72125; 96372; 99284; A9270; J1885

== ENCOUNTER 2020-11-08 16:03 | Emergency (ER) | payer MEDICARE, SELFPAY ==
--- NOTE | ~2020-11-08 | CT_ITS ---
EXAMINATION: CT cervical spine wo con DATE: 11/08/2020 17:44 INDICATION: Neck pain post fall TECHNIQUE: Computed tomography (CT) of the cervical spine was performed without intravenous contrast. Automated exposure control and iterative reconstruction technique were employed. The dose-length pro duct was 205.91 mGy-cm. COMPARISON: 10/27/2020 and 10/02/2020 FINDINGS: Cervical thoracic dextrocurvature.. Sagittal alignment is normal. Vertebral body and disc heights are normal. No fracture. Mild cervical spondylosis. See report dated 10/02/2020 for level by level analysi s. Cervical soft tissues are unremarkable. Chronic left sphenoid sinusitis. Mild pleural-parenchymal scarring at the right apex. IMPRESSION: 1. Mild cervical thoracic dextrocurvature with mild spondylosis. No acute osseous abnormality. Reviewed, dictated and finalized at location A. IMPRESSION: 1. Mild cervical thoracic dextrocurvature with mild spondylosis. No acute osseo us abnormality.
--- NOTE | ~2020-11-08 | CT_ITS ---
EXAMINATION: CT brain wo con DATE: 11/08/2020 17:44 INDICATION: 3 days of dizziness. Headache, nausea and vomiting post fall. TECHNIQUE: Computed tomography (CT) of the head was performed without intravenous contrast. Sagittal and coronal reconstructions were performed. The mA was adjusted according to patient size. Iterative reconstruction technique was employed. The dose-length product was 205.91 mGy-cm. COMPARISON: head CT dated 10/27/2020 FINDINGS: No fracture. No acute intracranial hemorrhage, acute infarction or abnormal extra axial fluid collect ion. There is minimal scattered white matter hypoattenuation consistent with chronic small vessel isc hemic disease. Symmetric prominence of the sulci and ventricles consistent with mild age-appropriate diffuse cerebral volume loss. No mass/mass effect. Near complete opacification of the left sphenoid s inus with sclerotic wall thickening consistent with chronic sinusitis. Mucosal thickening in the bila teral posterior ethmoid air cells. The orbits and mastoid air cells are normal. IMPRESSION: 1. No fracture or acute intracranial process. 2. Age-related changes including mild diffuse volume loss and minimal scattered white matter hypoatte nuation consistent with chronic small vessel ischemic disease. 3. Chronic left maxillary sinusitis. Reviewed, dictated and finalized at location A. IMPRESSION: 1. No fracture or acute intracranial process. 2. Age-related changes including mild diffuse volume loss and minimal scattered white matter hypoattenuation consistent with chronic small vessel ischemic dis ease. 3. Chronic left maxillary sinusitis.
[2020-11-08 16:31] VITALS: BP 100/85; PULSE 118; RESP 20; TEMP 37.1; O2SAT 100
--- NOTE | 2020-11-08 17:17 | PC.NURSE ---
patient placed in c-collar due to patient's report that she fell down 14 steps and now has neck and back pain. Patient reports that she may take it off.
--- NOTE | 2020-11-08 17:27 | ED.GENADULT ---
HPI - General Adult General Chief complaint: Nausea/Vomiting/Diarrhea Stated complaint: N/V x 3 days Time Seen by Provider: 11/08/20 16:37 Source: patient, EMS and RN notes reviewed Mode of arrival: EMS Limitations: no limitations History of Present Illness HPI narrative: Patient is 60 years old white female lives alone, came to the emergency room by ambulance after a fall down 7 carpeted steps. Patient reports history of migraine headache, lightheadedness, dizziness, weakness and history of multiple falls. Patient is not vaccinated for COVID-19, and denies any fever, chills, nausea, vomiting.. Patient complaining of headache and neck pain. Denies other injuries. Related Data Home Medications Medication Instructions Recorded Confirmed Prezista 800 mg PO DAILY 05/02/20 11/08/20 abacavir [Ziagen] 600 mg PO DAILY 05/02/20 11/08/20 acetaminophen 1,000 mg PO Q6H PRN 05/02/20 11/08/20 estradiol [Estrace] 1 mg PO DAILY 05/02/20 11/08/20 levothyroxine 150 mcg PO DAILY 05/02/20 11/08/20 mirtazapine 15 mg PO HS 05/02/20 11/08/20 ritonavir 100 mg PO DAILY 05/02/20 11/08/20 cyclobenzaprine 10 mg QPM PRN 10/07/20 11/08/20 Allergies Allergy/AdvReac Type Severity Reaction Status Date / Time latex Allergy Mild Rash, Verified 11/08/20 16:43 VOMITTING Sulfa (Sulfonamide Allergy Mild HIVES, Verified 11/08/20 16:43 Antibiotics) RASH, VOMITTING morphine AdvReac Unknown Nausea and Verified 10/27/20 12:39 Vomiting Review of Systems Review of Systems: Narrative: CONSTITUTIONAL: Denies fever, chills, or sweats. EYES: Denies visual changes, redness, or discharge. ENT: Denies rhinorrhea, congestion, sore throat, or otalgia. CARDIOVASCULAR: Denies chest pain, palpitations, or edema. RESPIRATORY: Denies cough or dyspnea. GASTROINTESTINAL: Denies abdominal pain, nausea, vomiting, or diarrhea. GENITOURINARY: Denies dysuria or hematuria. SKIN: Denies rash or itching. MUSCULOSKELETAL: Denies back pain, joint pain, or myalgia. NEUROLOGIC: Denies headache, numbness, or weakness. PSYCHIATRIC: Denies anxiety or depression. [facility] Past Medical History Medical History Anemia Anxiety Arthritis Chronic kidney disease, stage 3 Baseline creatinine ranges between 1.1 and 1.40. Depression Hepatitis C Human immunodeficiency virus Hypertension Hypothyroidism Migraine headache Nephrolithiasis Seizure X2. Surgical History Surgical History History of appendectomy History of bilateral knee replacement History of cholecystectomy History of hysterectomy Family History Family History Other Family history unknown Social History Social History Social History: The patient lives in a townhouse in [place]. She is not currently working. She has 2 grown children, a son and a daughter, but they do not keep in touch very often. No alcohol, tobacco, or illicit substance use. At this time she does not designate a surrogate decision maker. Code status: Do not resuscitate. Gender identity (if verbalized by the patient): Female Exam Narrative: Exam Narrative: General appearance: Well-developed, well-nourished, c-collar on Skin: Normal color Head: Normocephalic, nontraumatic Eyes: Clear conjunctiva ENT: Oropharynx normal, ears normal, nose normal Neck: Supple, nontender Chest and respiratory: Airway patent, no respiratory distress, no accessory muscle use Heart: Regular rate/rhythm Abdomen: Soft, nontender, no organomegaly, quiet bowel sounds Vascular: Normal peripheral pulses, normal capillary refill. Musculoskeletal: Normal range of motion, nontender back Neurologic: Alert and oriented ?3, PIGMENT WEIGHER is normal as tested, no gross motor deficit
[2020-11-08] MEDS: SODIUM CHLORIDE 0.9% IV 1,000 ML 999 ML IV CONT (17:42)
[2020-11-08] MEDS: diphenhydrAMINE HCl INJ 50 MG/ML VIAL IV PUSH (17:44)
[2020-11-08] MEDS: KETOROLAC 30 MG/ML VIAL (*BKC) IV PUSH (17:44)
[2020-11-08] MEDS: METOCLOPRAMIDE HCL INJ 10 MG/2 ML VIAL IV PUSH (17:44)
[2020-11-08 18:01] LABS: Basophils Percent Auto 0.3 % (0.2-1.2); Eosinophils Percent Auto 0.5 % (0-4.4); Hematocrit 36.4 % (37.0-47.0); Hemoglobin 11.5 g/dL (12.0-15.0); Immature Granulocyte Absolute 0.03 K/mm3 (0.00-0.031); Immature Granulocyte Percent A 0.5 % (0-0.5); Lymphocytes Absolute Auto 1.88 K/mm3 (0.9-3.2); Lymphocytes Percent Auto 31.6 % (18.3-44.2); Mean Corpuscular HGB Conc 31.6 g/dl (32-36); Mean Corpuscular Hemoglobin 27.4 pg (26-34); Mean Corpuscular Volume 86.7 fl (80-100); Monocytes Absolute Auto 0.6 K/mm3 (0.1-0.6); Monocytes Percent Auto 10.4 % (2.6-8.5); Neutrophils Absolute Auto 3.4 K/mm3 (1.3-6.7); Neutrophils Percent Auto 56.7 % (45.5-73.1); Platelet Count Result 200 k/mm3 (150-375); Red Cell Distribution Width 16.1 % (11.5-14.5)
[2020-11-08 18:07] LABS: Add Urine Microscopic? YES; Appearance Urine Clear (Clear); Bilirubin Urine Negative (Negative); Blood Urine Negative (Negative); Color Urine Yellow (Yellow); Glucose Urine UA Negative (Negative); Ketones Urine Negative (Negative); Leukocyte Esterase Ur 1+ LEU/UL (Negative); Mucus Urine Rare /lpf; Nitrate Urine Negative (Negative); Protein Urine Negative (Negative); RBC Urine 0-2 /hpf (0-2); Squamous Epithelial Cell Urine Moderate /hpf (Few); Urobilinogen Urine Negative mg/dL (<2.0)
[2020-11-08 18:13] LABS: Alanine Aminotransferase 27 U/L (4-35); Albumin Level 4.3 g/dL (3.5-5.1); Alkaline Phosphatase 80 U/L (38-126); Anion Gap 11 mmol/L (8-16); Aspartate Amino Transferase 39 U/L (14-36); Bilirubin,Total 0.3 mg/dL (0.2-1.3); Blood Urea Nitrogen 27 mg/dL (7-17); Calcium 9.2 mg/dL (8.4-10.2); Carbon Dioxide 24 mmol/L (22-30); Chloride 103 mmol/L (98-107); Estimated CRCL calculation 38 ml/min; Estimated Glomerular Filt Rate 35; Glucose 89 mg/dL (65-105); Potassium 4.2 mmol/L (3.4-5.0); Sodium 138 mmol/L (137-145)
[2020-11-08 18:21] VITALS: BP 109/78; PULSE 96; RESP 20; O2SAT 100
--- NOTE | 2020-11-08 18:44 | PC.NURSE ---
Patient walked to bathroom without difficulty and in no distress.
[2020-11-08 19:04] VITALS: BP 111/89; PULSE 99; RESP 16; O2SAT 99
[2020-11-08 19:31] VITALS: BP 105/74; O2SAT 100
[2020-11-08] MEDS: ONDANSETRON INJ 4 MG/2 ML VIAL IV PUSH (19:41)
[2020-11-08] MEDS: HYDROmorphone HCL INJ (*CRX) 1 MG/ML SYR 0.5 MG IV PUSH (19:41)
[2020-11-08 20:10] VITALS: BP 111/89; PULSE 90; RESP 18; O2SAT 99
== END 2020-11-08 20:10 | disposition home or self-care (01) ==
PROVIDERS: Emergency Medicine; Emergency Provider Emergency Medicine; PCP Physician Assistant
DX: R29.6 Repeated falls (principal); G43.909 Migraine, unspecified, not intractable, without status migrainosus; D64.9 Anemia, unspecified; I12.9 Hypertensive chronic kidney disease with stage 1 through stage 4 chronic kidney disease, or unspecified chronic kidney disease; N18.30 Chronic kidney disease, stage 3 unspecified; Z21 Asymptomatic human immunodeficiency virus [HIV] infection status; E03.9 Hypothyroidism, unspecified; F41.9 Anxiety disorder, unspecified; F32.9 Major depressive disorder, single episode, unspecified; Z87.442 Personal history of urinary calculi; Z86.19 Personal history of other infectious and parasitic diseases; Z96.653 Presence of artificial knee joint, bilateral; Z66 Do not resuscitate; J32.0 Chronic maxillary sinusitis; R53.1 Weakness; M47.812 Spondylosis without myelopathy or radiculopathy, cervical region; W10.9XXA Fall (on) (from) unspecified stairs and steps, initial encounter
CPT/HCPCS: 36415; 70450; 72125; 80053; 81001; 85025; 87086; 87088; 96361; 96374; 96375; 99284; J1170; J1200; J1885; J2405; J2765; J7030; L0140

== ENCOUNTER 2020-11-10 10:08 | Emergency (ER) | payer MEDICARE, SELFPAY ==
[2020-11-10] VITALS (7 sets, daily range): BP systolic 101–136; BP diastolic 74–112; PULSE 78–105; RESP 14–20; TEMP 36.8; O2SAT 97–99
--- NOTE | ~2020-11-10 | XR_ITS ---
EXAMINATION: XR lumbar spine 2-3V DATE: 11/10/2020 11:24 INDICATION: Low back pain TECHNIQUE: Anteroposterior and lateral views of the lumbar spine, and cone-down lateral view of the l umbosacral junction were obtained. COMPARISON: 10/05/2020 FINDINGS: There are chronic and unchanged compression fractures of T12 and L2-L5. No acute fracture i s identified. Bone alignment is normal. There is mild loss of intervertebral disc space height at L4- 5. Moderate facet osteoarthritis is noted in the lower lumbar spine. Surgical clips in the right uppe r quadrant are likely from prior cholecystectomy. Left nephrolithiasis is noted. IMPRESSION: 1. Chronic lower thoracic and lumbar compression fractures without acute findings or significant inte rval change. Reviewed, dictated and finalized at location A. IMPRESSION: 1. Chronic lower thoracic and lumbar compression fractures without acute findin gs or significant interval change.
--- NOTE | ~2020-11-10 | CT_ITS ---
EXAMINATION: CT cervical spine wo con DATE: 11/10/2020 11:16 INDICATION: Head injury and neck pain TECHNIQUE: Computed tomography (CT) of the cervical spine was performed without intravenous contrast. The dose-length product (DLP) was 605.33 mGy-cm. Automated exposure control and iterative reconstruc tion technique were employed. COMPARISON: 11/08/2020 FINDINGS: There is no fracture. The vertebral body heights and alignment are normal. There is mild lo ss of intervertebral disc space height in the mid cervical spine. The prevertebral soft tissues are n ormal. The odontoid is intact. Small degenerative osteophytes project from the anterior endplates of multiple vertebral bodies. Mild multilevel facet and uncovertebral joint osteoarthritis is noted. IMPRESSION: 1. Mild cervical spondylosis without acute findings or significant interval change. Reviewed, dictated and finalized at location A. IMPRESSION: 1. Mild cervical spondylosis without acute findings or significant interval inocencio nge.
--- NOTE | ~2020-11-10 | XR_ITS ---
EXAMINATION: XR chest 2V DATE: 11/10/2020 11:24 INDICATION: Transient alteration of awareness TECHNIQUE: AP and lateral views of the chest are obtained. COMPARISON: 10/07/2020 FINDINGS: There is scarring of the lung apices. Minimal airspace opacities are noted in the left lung base. There is no pleural effusion or pneumothorax. The cardiomediastinal silhouette is normal. Ther e is a chronic and unchanged mid thoracic burst fracture. IMPRESSION: 1. Left basilar airspace opacity, consistent with atelectasis versus pneumonia. Reviewed, dictated and finalized at location A.
--- NOTE | ~2020-11-10 | XR_ITS ---
EXAMINATION: XR shoulder RT min 2V INDICATION: Right shoulder pain TECHNIQUE: Four views of the right shoulder are submitted. COMPARISON: 10/05/2020 FINDINGS: Normal alignment. No fracture. There is mild osteoarthritis of the glenohumeral and acromio clavicular joints. Healing right-sided rib fractures are noted. Soft tissues are unremarkable. IMPRESSION: 1. Mild osteoarthritis of the shoulder. Reviewed, dictated and finalized at location A.
--- NOTE | ~2020-11-10 | CT_ITS ---
EXAMINATION: CT brain wo con INDICATION: Head injury COMPARISON: 11/08/2020 TECHNIQUE: Standard unenhanced head CT. The dose-length product (DLP) was 605.33 mGy-cm. The mA was a djusted according to patient size. Iterative reconstruction technique was employed. FINDINGS: There is no acute intraparenchymal hemorrhage. No evidence of mass lesion. No evidence of a cute infarction. There is mild periventricular and subcortical hypodensity probably related to small vessel ischemic disease. There is mild prominence of the sulci and ventricles related to cerebral atr ophy. Intracranial calcified cerebral atherosclerosis is noted. There are no extra-axial collections. There is no mass effect or midline shift. The orbits and soft tissues are unremarkable. There is chr onic left sphenoid sinusitis. IMPRESSION: 1. No acute intracranial abnormality. 2. Age related findings. Reviewed, dictated and finalized at location A.
--- NOTE | 2020-11-10 10:20 | ECG_ITS ---
Measurements Intervals [place] Rate: 104 P: 63 MD: 159 QRS: 28 QRSD: 70 T: 59 QT: 307 QTc: 405 Interpretive Statements SINUS TACHYCARDIA EARLY PRECORDIAL R/S TRANSITION LOW QRS VOLTAGE IN PRECORDIAL LEADS BASELINE ARTIFACT- I, II, III, AVR, AVL, V2 BORDERLINE ECG Electronically Signed On 11-10-2020 16:04:12 CDT by Akhil Lindo D.O.
--- NOTE | 2020-11-10 10:28 | ED.GENADULT ---
HPI - General Adult General Chief complaint: Headache Stated complaint: fall/migraine Source: patient Mode of arrival: EMS Limitations: no limitations History of Present Illness HPI narrative: Patient presents for evaluation of headache and a fall. She indicates she has an underlying history of migraines and was evaluated here two days ago had a CT head and C-spine after she sustained a fall down 7 carpeted steps. She was discharged. She states her headache persisted. Today she indicates that she blacked out and fell down 14 carpeted steps. She hit her low back and neck in the process. She states she has 8 out of 10 pain currently in the right shoulder, neck, and low back. She has a frontal headache that is consistent with pattern associated with her normal migraines. She has associated photophobia and nausea without vomiting. She has Imitrex available at home. She took a dose of Imitrex yesterday without significant improvement in her symptoms thereafter. Related Data Home Medications Medication Instructions Recorded Confirmed Prezista 800 mg PO DAILY 05/02/20 11/08/20 abacavir [Ziagen] 600 mg PO DAILY 05/02/20 11/08/20 acetaminophen 1,000 mg PO Q6H PRN 05/02/20 11/08/20 estradiol [Estrace] 1 mg PO DAILY 05/02/20 11/08/20 levothyroxine 150 mcg PO DAILY 05/02/20 11/08/20 mirtazapine 15 mg PO HS 05/02/20 11/08/20 ritonavir 100 mg PO DAILY 05/02/20 11/08/20 cyclobenzaprine 10 mg QPM PRN 10/07/20 11/08/20 Allergies Allergy/AdvReac Type Severity Reaction Status Date / Time latex Allergy Mild Rash, Verified 11/10/20 10:15 VOMITTING Sulfa (Sulfonamide Allergy Mild HIVES, Verified 11/10/20 10:15 Antibiotics) RASH, VOMITTING morphine AdvReac Unknown Nausea and Verified 11/10/20 10:15 Vomiting Review of Systems Review of Systems: Narrative: CONSTITUTIONAL: Denies fever, chills, or sweats. EYES: Denies visual changes, redness, or discharge. ENT: Denies rhinorrhea, congestion, sore throat, or otalgia. CARDIOVASCULAR: Denies chest pain, palpitations, or edema. RESPIRATORY: Denies cough or dyspnea. GASTROINTESTINAL: Denies abdominal pain, nausea, vomiting, or diarrhea. GENITOURINARY: Denies dysuria or hematuria. SKIN: Denies rash or itching. MUSCULOSKELETAL: Reports low back pain, right shoulder pain, neck pain. NEUROLOGIC: Reports headache. Denies numbness, dizziness, or weakness. PSYCHIATRIC: Denies anxiety or depression. PMFSH Past Medical History Medical History Anemia Anxiety Arthritis Chronic kidney disease, stage 3 Baseline creatinine ranges between 1.1 and 1.40. Depression Hepatitis C Human immunodeficiency virus Hypertension Hypothyroidism Migraine headache Nephrolithiasis Seizure X2. Surgical History Surgical History History of appendectomy History of bilateral knee replacement History of cholecystectomy History of hysterectomy Family History Family History Other Family history unknown Social History Social History Social History: The patient lives in a townhouse in [place]. She is not currently working. She has 2 grown children, a son and a daughter, but they do not keep in touch very often. No alcohol, tobacco, or illicit substance use. At this time she does not designate a surrogate decision maker. Code status: Do not resuscitate. Gender identity (if verbalized by the patient): Female Exam Narrative: Exam Narrative: GENERAL: Well-appearing, well-nourished, and in no acute distress. HEAD: Normocephalic, atraumatic. EYES: PERRLA and EOMI. ENT: Nares clear, no rhinorrhea or epistaxis. Mucous membranes moist. Oropharynx without tonsillar hypertrophy exudate or other lesions. Bilateral TMs pearly sanchez nonbulging NECK:
[2020-11-10] MEDS: SODIUM CHLORIDE 0.9% IV 1,000 ML 999 ML IV CONT (10:39)
[2020-11-10] MEDS: ONDANSETRON INJ 4 MG/2 ML VIAL IV PUSH (10:39)
[2020-11-10 10:40] LABS: Basophils Percent Auto 0.2 % (0.2-1.2); Eosinophils Percent Auto 0.3 % (0-4.4); Hematocrit 31.9 % (37.0-47.0); Hemoglobin 10.2 g/dL (12.0-15.0); Immature Granulocyte Absolute 0.03 K/mm3 (0.00-0.031); Immature Granulocyte Percent A 0.5 % (0-0.5); Lymphocytes Absolute Auto 1.71 K/mm3 (0.9-3.2); Lymphocytes Percent Auto 29.4 % (18.3-44.2); Mean Corpuscular Hemoglobin 27.8 pg (26-34); Mean Corpuscular Volume 86.9 fl (80-100); Mean Platelet Volume 9.3 fl (7.4-10.4); Monocytes Absolute Auto 0.6 K/mm3 (0.1-0.6); Monocytes Percent Auto 9.6 % (2.6-8.5); Neutrophils Absolute Auto 3.5 K/mm3 (1.3-6.7); Platelet Count Result 183 k/mm3 (150-375); Red Blood Count 3.67 M/mm3 (4.2-5.4); Red Cell Distribution Width 16.1 % (11.5-14.5); White Blood Count 5.8 K/mm3 (4.5-10.0)
[2020-11-10 10:50] LABS: Alanine Aminotransferase 22 U/L (4-35); Albumin Level 3.9 g/dL (3.5-5.1); Alkaline Phosphatase 76 U/L (38-126); Anion Gap 8 mmol/L (8-16); Aspartate Amino Transferase 32 U/L (14-36); Bilirubin,Total 0.4 mg/dL (0.2-1.3); Blood Urea Nitrogen 21 mg/dL (7-17); Carbon Dioxide 27 mmol/L (22-30); Chloride 102 mmol/L (98-107); Estimated CRCL calculation 47 ml/min; Estimated Glomerular Filt Rate 46; Glucose 100 mg/dL (65-110); Potassium 4.2 mmol/L (3.4-5.0); Sodium 137 mmol/L (137-145)
[2020-11-10 11:02] LABS: Troponin I < 0.012 ng/mL (0.000-0.034)
[2020-11-10 11:37] LABS: Add Urine Microscopic? YES; Appearance Urine Clear (Clear); Bacteria Urine Trace /hpf; Bilirubin Urine Negative (Negative); Blood Urine Negative (Negative); Color Urine Yellow (Yellow); Glucose Urine UA Negative (Negative); Ketones Urine Negative (Negative); Leukocyte Esterase Ur 1+ LEU/UL (Negative); Mucus Urine Rare /lpf; Nitrate Urine Negative (Negative); Protein Urine Negative (Negative); RBC Urine 0-2 /hpf (0-2); Specific Grav Ur 1.012 (1.001-1.035); Squamous Epithelial Cell Urine Few /hpf (Few); Urobilinogen Urine Negative mg/dL (<2.0)
== END 2020-11-10 13:57 | disposition home or self-care (01) ==
PROVIDERS: Emergency Provider Nurse Practitioner; PCP Physician Assistant
DX: S46.911A Strain of unspecified muscle, fascia and tendon at shoulder and upper arm level, right arm, initial encounter (principal); S16.1XXA Strain of muscle, fascia and tendon at neck level, initial encounter; S20.229A Contusion of unspecified back wall of thorax, initial encounter; G43.909 Migraine, unspecified, not intractable, without status migrainosus; J18.9 Pneumonia, unspecified organism; D64.9 Anemia, unspecified; I12.9 Hypertensive chronic kidney disease with stage 1 through stage 4 chronic kidney disease, or unspecified chronic kidney disease; N18.30 Chronic kidney disease, stage 3 unspecified; Z86.19 Personal history of other infectious and parasitic diseases; Z87.442 Personal history of urinary calculi; E03.9 Hypothyroidism, unspecified; Z21 Asymptomatic human immunodeficiency virus [HIV] infection status; F41.9 Anxiety disorder, unspecified; F32.9 Major depressive disorder, single episode, unspecified; Z96.653 Presence of artificial knee joint, bilateral; M19.011 Primary osteoarthritis, right shoulder; M47.812 Spondylosis without myelopathy or radiculopathy, cervical region; W10.9XXA Fall (on) (from) unspecified stairs and steps, initial encounter
CPT/HCPCS: 36415; 70450; 71046; 72100; 72125; 73030; 80053; 81001; 84484; 85025; 93005; 96361; 96374; 99284; A9270; J2405; J7030

== ENCOUNTER 2021-03-20 05:22 | Emergency (ER) | payer MEDICARE, SELFPAY ==
--- NOTE | ~2021-03-20 | XR_ITS ---
EXAMINATION: XR chest 1V portable EXAM DATE: 03/20/2021 05:49 INDICATION: Rating chest pain, fever, cough, shortness of breath. TECHNIQUE: Portable AP frontal chest x-ray was obtained. Comparison is made to prior examination from 11/09/2016. FINDINGS: The lungs are clear. There are no pleural effusions. Cardiomediastinal silhouette is norm al. There is no pneumothorax suspected. The bones and soft tissues are unremarkable. IMPRESSION: No acute cardiopulmonary findings. Reviewed, dictated and finalized at location A. UM SERVICE SCHEDULER
--- NOTE | ~2021-03-20 | CT_ITS ---
EXAMINATION: CTA chest PE protocol DATE: 03/20/2021 07:54 INDICATION: Chest pain. TECHNIQUE: Computed tomography angiography (CTA) of the chest was performed with 100 mL Omnipaque-350 intravenous contrast timed to evaluate the pulmonary arteries. Coronal maximum intensity projection 3D-reconstructions were created by the technologist. Automated exposure control and iterative reconst ruction technique were employed. The dose-length product was 420.88 mGy-cm. COMPARISON: CT cervical spine 04/27/2020, 11/01/2018, thoracic spine CT 04/27/2020 FINDINGS: There is mild emphysema. There is a 7 mm nodule in right lung apex. There are small bilater al posterior diaphragmatic hernias containing fat. There is minimal atelectasis bilaterally. No pleur al effusion. The heart size is normal. There are coronary artery calcifications. No pericardial effus ion. There is a moderate-sized sliding hiatal hernia. There is no pulmonary embolus. There are old he aled bilateral rib fractures. There is a chronic compression fracture of T12. There is chronic verteb ral plana involving T8 with focal kyphosis. There is severe spondylosis in mid thoracic spine. IMPRESSION: 1. No pulmonary embolus. 2. 7 mm right upper lobe pulmonary nodule, new from 04/27/2020, which may be primary bronchogenic carci noma or granulomatous disease. Noncontrast low-dose chest CT is recommended in 6 months. 3. Mild emphysema. Reviewed, dictated and finalized at location B. INSPECTOR IMPRESSION: 1. No pulmonary embolus. 2. 7 mm right upper lobe pulmonary nodule, new from 04/27/2020, which may be prim sharmaine bronchogenic carcinoma or granulomatous disease. Noncontrast low-dose chest CT is recommended in 6 months. 3. Mild emphysema.
[2021-03-20 05:24] VITALS: BP 170/88; PULSE 87; RESP 18; TEMP 36.6; O2SAT 99
--- NOTE | 2021-03-20 05:28 | ECG_ITS ---
Measurements Intervals [place] Rate: 83 P: 78 HI: 172 QRS: 7 QRSD: 85 T: 61 QT: 348 QTc: 410 Interpretive Statements SINUS RHYTHM INCOMPLETE RIGHT BUNDLE BRANCH BLOCK BASELINE ARTIFACT- I, II, III, AVR, AVL, AVF, V1-V6 BORDERLINE ECG Electronically Signed On 03-20-2021 6:45:45 MECHANICAL SPECIALIST by Akhil Lindo D.O.
--- NOTE | 2021-03-20 05:35 | ED.CHESTPAIN ---
HPI - Chest Pain General Chief Complaint: Chest Pain <Rosa Sandoval MD - Last Filed: 03/20/21 07:26> Stated Complaint: chest pain <Rosa Sandoval MD - Last Filed: 03/20/21 07:26> Time Seen by Provider: 03/20/21 07:53 <Rosa Sandoval MD - Last Filed: 03/20/21 07:26> Source: patient and EMS <Rosa Sandoval MD - Last Filed: 03/20/21 07:26> Mode of arrival: EMS <Rosa Sandoval MD - Last Filed: 03/20/21 07:26> Limitations: no limitations <Rosa Sandoval MD - Last Filed: 03/20/21 07:26> History of Present Illness HPI narrative: The patient is a 60 yo female with a history of chronic HIV, hepatitis, frequent falls, presenting for evaluation of chest pain, rhinorrhea, congestion and sore throat. Patient reports symptoms began four days ago. Pt reports chest pain has been present and worsening over the past 24 hours, described as aching pressure with radiation to her back. Patient states that the pain resolved when she arrived via EMS, and then in the same breath states that the pain is coming back. She reports myalgias, neck pain, back pain. She denies focal shoulder pain. Pt reports dry cough without shortness of breath. Patient reports nausea and dry heaves; she reports decreased oral intake over the past four days. She states she has had one covid vaccine, denies history of known covid infection. Pt denies leg swelling or calf pain. No recent car or air travel.No history of blood clot. Pt well known to EMS who help assist the patient with frequent falls. She denies focal weakness or numbness. Pt given ASA en route via EMS. <Rosa Sandoval MD - Last Filed: 03/20/21 07:26> Related Data Home Medications: Home Medications Medication Instructions Recorded Confirmed Prezista 800 mg PO DAILY 05/02/20 11/08/20 abacavir [Ziagen] 600 mg PO DAILY 05/02/20 11/08/20 acetaminophen 1,000 mg PO Q6H PRN 05/02/20 11/08/20 estradiol [Estrace] 1 mg PO DAILY 05/02/20 11/08/20 levothyroxine 150 mcg PO DAILY 05/02/20 11/08/20 mirtazapine 15 mg PO HS 05/02/20 11/08/20 ritonavir 100 mg PO DAILY 05/02/20 11/08/20 cyclobenzaprine 10 mg QPM PRN 10/07/20 11/08/20 <Rosa Sandoval MD - Last Filed: 03/20/21 07:26> Allergies/Adverse Reactions: Allergies Allergy/AdvReac Type Severity Reaction Status Date / Time latex Allergy Mild Rash, Verified 03/20/21 05:38 VOMITTING Sulfa (Sulfonamide Allergy Mild HIVES, Verified 03/20/21 05:38 Antibiotics) RASH, VOMITTING morphine AdvReac Unknown Nausea and Verified 03/20/21 05:38 Vomiting <Rosa Sandoval MD - Last Filed: 03/20/21 07:26> Review of Systems Review of Systems: CONSTITUTIONAL: Reports subjective fever and chills EYES: Denies visual changes, redness, or discharge. ENT: Reports rhinorrhea, congestion, sore throat CARDIOVASCULAR: Reports chest pain without palpitations, or edema. RESPIRATORY: Reports cough or shortness of breath GASTROINTESTINAL: Denies abdominal pain, reports she has nausea, vomiting,denies diarrhea GENITOURINARY: Denies dysuria or hematuria. SKIN: Denies rash or itching. MUSCULOSKELETAL: Reports middle back pain, denies other joint pain, or myalgia. NEUROLOGIC: Denies headache, numbness, or weakness. <Rosa Snadoval MD - Last Filed: 03/20/21 07:26> [facility] Past Medical History Medical History: Medical History Anemia Anxiety Arthritis Chronic kidney disease, stage 3 Baseline creatinine ranges between 1.1 and 1.40. Depression Hepatitis C Human immunodeficiency virus Hypertension Hypothyroidism Migraine headache Nephrolithiasis Seizure X2. <Rosa Sandoval MD - Last Filed: 03/20/21 07:26> Surgical History Surgical History: Surgical History History of appendectomy History of bilateral knee replacement History of cholecystectomy History of hysterecto
--- NOTE | 2021-03-20 06:15 | PC.NURSE ---
PT REFUSED IV REQUEST PO MEDS AND BLOOD DRAW ERP NOTIFIED
[2021-03-20 06:17] LABS: Basophils Percent Auto 0.4 % (0.2-1.2); Eosinophils Absolute Auto 0.1 K/mm3 (0-0.3); Eosinophils Percent Auto 2.3 % (0-4.4); Hematocrit 38.7 % (37.0-47.0); Hemoglobin 13.2 g/dL (12.0-15.0); Immature Granulocyte Absolute 0.01 K/mm3 (0.00-0.031); Immature Granulocyte Percent A 0.2 % (0-0.5); Lymphocytes Absolute Auto 0.87 K/mm3 (0.9-3.2); Lymphocytes Percent Auto 18.3 % (18.3-44.2); Mean Corpuscular HGB Conc 34.1 g/dl (32-36); Mean Corpuscular Hemoglobin 28.1 pg (26-34); Mean Corpuscular Volume 82.5 fl (80-100); Mean Platelet Volume 9.5 fl (7.4-10.4); Monocytes Absolute Auto 0.5 K/mm3 (0.1-0.6); Monocytes Percent Auto 10.1 % (2.6-8.5); Neutrophils Absolute Auto 3.3 K/mm3 (1.3-6.7); Neutrophils Percent Auto 68.7 % (45.5-73.1); Platelet Count Result 206 k/mm3 (150-375); Red Blood Count 4.69 M/mm3 (4.2-5.4); White Blood Count 4.8 K/mm3 (4.5-10.0)
[2021-03-20] MEDS: ONDANSETRON HCL ODT 4 MG TABLET PO (06:18)
[2021-03-20 06:20] VITALS: BP 143/98; PULSE 97; RESP 18; O2SAT 99
[2021-03-20 06:22] LABS: Alanine Aminotransferase 13 U/L (4-35); Albumin Level 4.5 g/dL (3.5-5.1); Alkaline Phosphatase 68 U/L (38-126); Anion Gap 10 mmol/L (8-16); Aspartate Amino Transferase 24 U/L (14-36); Bilirubin,Total 0.6 mg/dL (0.2-1.3); Blood Urea Nitrogen 19 mg/dL (7-17); Calcium 9.9 mg/dL (8.4-10.2); Carbon Dioxide 26 mmol/L (22-30); Chloride 105 mmol/L (98-107); Estimated CRCL calculation 48 ml/min; Estimated Glomerular Filt Rate 46; Glucose 99 mg/dL (65-110); Lipase 124 U/L (23-300); Potassium 3.7 mmol/L (3.4-5.0); Sodium 141 mmol/L (137-145)
[2021-03-20 06:32] LABS: NT Pro B Type Natriuretic Pept 65 pg/mL (5-100); Troponin I < 0.012 ng/mL (0.000-0.034)
[2021-03-20 06:40] LABS: D Dimer 0.54 ug/mL (<0.48)
[2021-03-20] MEDS: ACETAMINOPHEN 500 MG TABLET 1000 MG PO (07:42)
[2021-03-20 07:45] VITALS: BP 143/98; PULSE 87; RESP 12; O2SAT 99
[2021-03-20 09:28] LABS: Troponin I < 0.012 ng/mL (0.000-0.034)
[2021-03-20] MEDS: KETOROLAC 30 MG/ML VIAL (*BKC) IV PUSH (09:53)
[2021-03-20 10:01] VITALS: BP 163/100; PULSE 79; RESP 14; O2SAT 98
[2021-03-20 18:14] LABS: SARS-CoV-2 RNA PCR Negative
== END 2021-03-20 10:38 | disposition home or self-care (01) ==
PROVIDERS: Emergency Medicine; Emergency Provider Emergency Medicine; PCP Physician Assistant
DX: R07.89 Other chest pain (principal); R09.89 Other specified symptoms and signs involving the circulatory and respiratory systems; J34.89 Other specified disorders of nose and nasal sinuses; Z20.822 Contact with and (suspected) exposure to COVID-19; I12.9 Hypertensive chronic kidney disease with stage 1 through stage 4 chronic kidney disease, or unspecified chronic kidney disease; N18.30 Chronic kidney disease, stage 3 unspecified; Z21 Asymptomatic human immunodeficiency virus [HIV] infection status; E03.9 Hypothyroidism, unspecified; M19.90 Unspecified osteoarthritis, unspecified site; Z96.653 Presence of artificial knee joint, bilateral; Z86.2 Personal history of diseases of the blood and blood-forming organs and certain disorders involving the immune mechanism; Z87.442 Personal history of urinary calculi; J43.9 Emphysema, unspecified; R91.1 Solitary pulmonary nodule; Z86.19 Personal history of other infectious and parasitic diseases; I45.10 Unspecified right bundle-branch block
CPT/HCPCS: 36415; 71045; 71275; 80053; 83690; 83880; 84484; 85025; 85380; 87804; 93005; 96374; 99284; A9270; C9803; J1885; Q9967; U0003; U0005

== ENCOUNTER 2021-04-02 05:51 | Emergency (ER) | payer MEDICARE, SELFPAY ==
[2021-04-02] VITALS (14 sets, daily range): BP systolic 122–162; BP diastolic 81–103; PULSE 75–98; RESP 9–22; TEMP 36.5; O2SAT 98–100
--- NOTE | ~2021-04-02 | XR_ITS ---
EXAMINATION: XR chest 1V portable DATE: 04/02/2021 06:22 INDICATION: Shortness of breath and fever and cough. TECHNIQUE: A single frontal view of the chest was obtained. COMPARISON: Chest single view 03/20/2021, chest CT 03/20/2021 FINDINGS: The chest demonstrates clear lungs without pneumonia, pleural effusion, or pneumothorax. Th e heart size is normal. IMPRESSION: 1. No acute cardiopulmonary disease. Reviewed, dictated and finalized at location A. L OR MOTEL CLEANING SUPERVISOR
--- NOTE | ~2021-04-02 | CT_ITS ---
EXAMINATION: CTA chest PE protocol DATE: 04/02/2021 09:25 INDICATION: Shortness of breath, chest pain, fever and cough. Elevated d-dimer. TECHNIQUE: Computed tomography (CT) pulmonary angiogram of the chest was performed with 100 mL Omnipa que-350 intravenous contrast. Additional 3D reconstructions utilizing coronal maximum intensity proje ction (MIP) were performed. Automated exposure control and iterative reconstruction technique were em ployed. The dose-length product was 281.37 mGy-cm. COMPARISON: None FINDINGS: Excellent contrast opacification of the pulmonary arteries. There is mild streak artifact from dense contrast in the superior vena cava and right atrium. No significant motion artifact yielding diagnost ic quality study which demonstrates no pulmonary embolism. Mild emphysema. Unchanged 7 mm pulmonary n odule at the right apex. Normal small intrafissural lymph node along with an unchanged small focus of linear atelectasis/scarring the right lower lobe along the caudal aspect of the major fissure. No pn [place], pulmonary edema, pleural effusion or pneumothorax. Bilateral small fat-containing posterior diaphragmatic hernias. Heart size is normal. Coronary artery calcifications. No pericardial effusion. Thoracic aorta is normal in caliber with no dissection. Moderate-sized sliding-type hiatal hernia. N o pathologically enlarged thoracic lymphadenopathy. Old bilateral rib fractures. Chronic mild T12 com pression fracture. Chronic burst fracture with vertebra plana, mild focal kyphosis and 5 mm retropuls ion resulting in mild central canal stenosis at T8. Cholecystectomy clips the gallbladder fossa. IMPRESSION: 1. No pulmonary embolism or other acute cardiopulmonary disease. 2. Mild emphysema. 2. Redemonstration of an indeterminate 7 mm right apical pulmonary nodule for which 6 month follow-up noncontrast low-dose chest CT is recommended. Reviewed, dictated and finalized at location B. NESS OFFICE SPECIALIST IMPRESSION: 1. No pulmonary embolism or other acute cardiopulmonary disease. 2. Mild emphysema. 2. Redemonstration of an indeterminate 7 mm right apical pulmonary nodule for [facility] 6 month follow-up noncontrast low-dose chest CT is recommended.
--- NOTE | 2021-04-02 05:56 | ECG_ITS ---
Measurements Intervals [place] Rate: 80 P: 69 [place]: 184 QRS: 8 QRSD: 86 T: 61 QT: 371 QTc: 430 Interpretive Statements SINUS RHYTHM EARLY PRECORDIAL R/S TRANSITION BASELINE ARTIFACT- I, II, III, AVR, AVL, AVF, V1-V6 BORDERLINE ECG Electronically Signed On 04-02-2021 6:20:02 EDITOR NEWS by Akhil Lindo D.O.
[2021-04-02 06:21] LABS: INR 0.9; Prothrombin Time 12.2 Seconds (11.1-14.7)
[2021-04-02 06:22] LABS: Partial Thromboplastin Time 30.9 SECONDS (22.3-36.8)
[2021-04-02 06:26] LABS: Alanine Aminotransferase 17 U/L (4-35); Albumin Level 4.8 g/dL (3.5-5.1); Alkaline Phosphatase 75 U/L (38-126); Anion Gap 10 mmol/L (8-16); Aspartate Amino Transferase 29 U/L (14-36); Bilirubin,Total 0.4 mg/dL (0.2-1.3); Blood Urea Nitrogen 25 mg/dL (7-17); Calcium 9.6 mg/dL (8.4-10.2); Carbon Dioxide 26 mmol/L (22-30); Chloride 102 mmol/L (98-107); Estimated CRCL calculation 40 ml/min; Estimated Glomerular Filt Rate 38; Glucose 98 mg/dL (65-110); Lipase 81 U/L (23-300); Potassium 3.7 mmol/L (3.4-5.0); Sodium 138 mmol/L (137-145)
[2021-04-02 06:36] LABS: Basophils Percent Auto 0.5 % (0.2-1.2); Eosinophils Absolute Auto 0.1 K/mm3 (0-0.3); Eosinophils Percent Auto 1.9 % (0-4.4); Hematocrit 39.9 % (37.0-47.0); Hemoglobin 13.3 g/dL (12.0-15.0); Immature Granulocyte Absolute 0.01 K/mm3 (0.00-0.031); Immature Granulocyte Percent A 0.3 % (0-0.5); Lymphocytes Absolute Auto 1.26 K/mm3 (0.9-3.2); Lymphocytes Percent Auto 34.2 % (18.3-44.2); Mean Corpuscular HGB Conc 33.3 g/dl (32-36); Mean Corpuscular Hemoglobin 27.9 pg (26-34); Mean Corpuscular Volume 83.6 fl (80-100); Mean Platelet Volume 9.4 fl (7.4-10.4); Monocytes Absolute Auto 0.4 K/mm3 (0.1-0.6); Monocytes Percent Auto 11.4 % (2.6-8.5); Neutrophils Absolute Auto 1.9 K/mm3 (1.3-6.7); Neutrophils Percent Auto 51.7 % (45.5-73.1); Platelet Count Result 193 k/mm3 (150-375); Red Blood Count 4.77 M/mm3 (4.2-5.4); White Blood Count 3.7 K/mm3 (4.5-10.0)
[2021-04-02 06:38] LABS: Troponin I < 0.012 ng/mL (0.000-0.034)
--- NOTE | 2021-04-02 07:10 | PC.NURSE ---
report received from marichuy anderson. pt denies needs at this time
[2021-04-02] MEDS: ACETAMINOPHEN 500 MG TABLET 1000 MG PO (07:42)
[2021-04-02 08:21] LABS: D Dimer 0.73 ug/mL (<0.48)
--- NOTE | 2021-04-02 08:46 | ED.SOB ---
HPI - SOB/Dyspnea General Chief Complaint: Shortness of Breath/Dyspnea Stated Complaint: sob, cp, fever x couple days Time Seen by Provider: 04/02/21 07:15 Source: patient Mode of arrival: ambulatory Limitations: no limitations History of Present Illness HPI Narrative: 60-year-old female History of HIV History of chief Covid vaccine but not influenza vaccine She complains of a 1 day history of fever, headache, muscle aches, joint pains, upper back pain, chest pain, shortness of breath, and a dry cough No nausea or vomiting, no dysuria or hematuria She has had an appendectomy and a [place] Related Data Home Medications Medication Instructions Recorded Confirmed Prezista 800 mg PO DAILY 05/02/20 11/08/20 abacavir [Ziagen] 600 mg PO DAILY 05/02/20 11/08/20 acetaminophen 1,000 mg PO Q6H PRN 05/02/20 11/08/20 estradiol [Estrace] 1 mg PO DAILY 05/02/20 11/08/20 levothyroxine 150 mcg PO DAILY 05/02/20 11/08/20 mirtazapine 15 mg PO HS 05/02/20 11/08/20 ritonavir 100 mg PO DAILY 05/02/20 11/08/20 cyclobenzaprine 10 mg QPM PRN 10/07/20 11/08/20 Allergies Allergy/AdvReac Type Severity Reaction Status Date / Time latex Allergy Mild Rash, Verified 04/02/21 05:55 VOMITTING Sulfa (Sulfonamide Allergy Mild HIVES, Verified 04/02/21 05:55 Antibiotics) RASH, VOMITTING morphine AdvReac Unknown Nausea and Verified 04/02/21 05:55 Vomiting Review of Systems Review of Systems: All systems reviewed & are unremarkable except as noted in HPI and below Constitutional: Constitutional: Reports no additional constitutional complaints, Denies chills, Reports fever(s), Denies headache(s) and Reports weakness Eyes: Eyes: Reports no additional eye complaints and Denies photophobia ENT: Denies headache(s), Denies nasal congestion and Denies sore throat Cardiovascular: Cardiovascular: Reports chest pain and Denies dyspnea Respiratory: Respiratory: Reports cough and Reports dyspnea Gastrointestinal: Gastrointestinal: Denies abdominal pain, Denies diarrhea and Denies vomiting Genitourinary: Genitourinary: Denies urinary frequency, Denies nocturia and Denies dysuria Musculoskeletal: Musculoskeletal: Reports back pain, Reports myalgias, Denies deformity, Reports arthralgias, Denies joint swelling and Denies numbness Integumentary/Breasts: Skin/Breast: Denies rash and Denies wounds Neurologic: Reports headache(s), Denies focal weakness and Denies numbness Psychiatric: Psychiatric: Reports no additional psychiatric complaints Endocrine: Endocrine: Reports no additional endocrine complaints Hematologic/Lymphatic: Hematologic/Lymphatic: Reports no additional hematologic/lymphatic complaints Allergic/Immunologic: Allergic/Immunologic: Reports no additional allergic/immunologic complaints [facility] Past Medical History Medical History Anemia Anxiety Arthritis Chronic kidney disease, stage 3 Baseline creatinine ranges between 1.1 and 1.40. Depression Hepatitis C Human immunodeficiency virus Hypertension Hypothyroidism Migraine headache Nephrolithiasis Seizure X2. Surgical History Surgical History History of appendectomy History of bilateral knee replacement History of cholecystectomy History of hysterectomy Family History Family History Other Family history unknown Social History Social History Social History: The patient lives in a townhouse in [place]. She is not currently working. She has 2 grown children, a son and a daughter, but they do not keep in touch very often. No alcohol, tobacco, or illicit substance use. At this time she does not designate a surrogate decision maker. Code status: Do not resuscitate. Gender identity (if verbalized by the patient): Female Sexual Orientation (i
[2021-04-02] MEDS: KETOROLAC 30 MG/ML VIAL (*BKC) IV PUSH (08:50)
[2021-04-02 09:43] LABS: Troponin I < 0.012 ng/mL (0.000-0.034)
== END 2021-04-02 10:23 | disposition home or self-care (01) ==
PROVIDERS: Emergency Medicine; Emergency Provider Emergency Medicine; PCP Physician Assistant
DX: J10.1 Influenza due to other identified influenza virus with other respiratory manifestations (principal); I12.9 Hypertensive chronic kidney disease with stage 1 through stage 4 chronic kidney disease, or unspecified chronic kidney disease; N18.30 Chronic kidney disease, stage 3 unspecified; Z21 Asymptomatic human immunodeficiency virus [HIV] infection status; M19.90 Unspecified osteoarthritis, unspecified site; Z86.2 Personal history of diseases of the blood and blood-forming organs and certain disorders involving the immune mechanism; E03.9 Hypothyroidism, unspecified; Z96.653 Presence of artificial knee joint, bilateral; J43.9 Emphysema, unspecified; R91.1 Solitary pulmonary nodule; R94.31 Abnormal electrocardiogram [ECG] [EKG]
CPT/HCPCS: 36415; 71045; 71275; 80053; 83690; 84484; 85025; 85380; 85610; 85730; 87804; 93005; 96374; 99284; A9270; J1885; Q9967

== ENCOUNTER 2021-05-06 05:14 | Emergency (ER) | payer MEDICARE, SELFPAY ==
--- NOTE | ~2021-05-06 | XR_ITS ---
EXAMINATION: XR chest 1V portable DATE: 05/06/2021 06:01 INDICATION: Chest pain TECHNIQUE: frontal view of the chest was obtained. COMPARISON: Chest radiograph and CT dated 04/12/2021 FINDINGS: The bilateral small fat-containing posterior diaphragmatic hernias seen on prior CT are evident along the lung bases. No other airspace opacities, pulmonary edema, pleural effusion or pneumothorax. The cardiomediastinal silhouette is normal. IMPRESSION: 1. No acute cardiopulmonary disease. Reviewed, dictated and finalized at location A. SPLANT RN
[2021-05-06 05:18] VITALS: BP 160/93; PULSE 77; RESP 17; TEMP 36.3; O2SAT 100
--- NOTE | 2021-05-06 05:37 | ECG_ITS ---
Measurements Intervals [place] Rate: 80 P: 75 [place]: 192 QRS: 27 QRSD: 80 T: 66 QT: 365 QTc: 422 Interpretive Statements SINUS RHYTHM RSR' IN V1 OR V2, PROBABLY NORMAL VARIANT BASELINE ARTIFACT- I, AVL, V1-V2 NORMAL ECG Electronically Signed On 05-06-2021 8:17:25 MANAGER TRADE by Akhil Lindo D.O.
[2021-05-06 05:57] LABS: Add Urine Microscopic? NO; Appearance Urine Clear (Clear); Bilirubin Urine Negative (Negative); Blood Urine Negative (Negative); Color Urine Straw (Yellow); Glucose Urine UA Negative (Negative); Ketones Urine Negative (Negative); Leukocyte Esterase Ur Negative LEU/UL (Negative); Nitrate Urine Negative (Negative); Protein Urine Negative (Negative); Urobilinogen Urine Negative mg/dL (<2.0)
[2021-05-06 06:17] LABS: Basophils Percent Auto 0.7 % (0.2-1.2); Eosinophils Absolute Auto 0.1 K/mm3 (0-0.3); Eosinophils Percent Auto 2.1 % (0-4.4); Hematocrit 40.7 % (37.0-47.0); Hemoglobin 13.6 g/dL (12.0-15.0); Immature Granulocyte Absolute 0.02 K/mm3 (0.00-0.031); Immature Granulocyte Percent A 0.7 % (0-0.5); Lymphocytes Absolute Auto 0.59 K/mm3 (0.9-3.2); Lymphocytes Percent Auto 20.5 % (18.3-44.2); Mean Corpuscular HGB Conc 33.4 g/dl (32-36); Mean Corpuscular Hemoglobin 28.8 pg (26-34); Mean Corpuscular Volume 86.2 fl (80-100); Mean Platelet Volume 9.7 fl (7.4-10.4); Monocytes Absolute Auto 0.3 K/mm3 (0.1-0.6); Monocytes Percent Auto 10.4 % (2.6-8.5); Neutrophils Absolute Auto 1.9 K/mm3 (1.3-6.7); Neutrophils Percent Auto 65.6 % (45.5-73.1); Platelet Count Result 180 k/mm3 (150-375); Red Blood Count 4.72 M/mm3 (4.2-5.4); Red Cell Distribution Width 14.8 % (11.5-14.5); White Blood Count 2.9 K/mm3 (4.5-10.0)
[2021-05-06 06:30] LABS: INR 0.9; Prothrombin Time 12.3 Seconds (11.1-14.7)
[2021-05-06 06:31] LABS: Partial Thromboplastin Time 30.1 SECONDS (22.3-36.8)
[2021-05-06 06:33] LABS: Alanine Aminotransferase 20 U/L (4-35); Alkaline Phosphatase 75 U/L (38-126); Anion Gap 12 mmol/L (8-16); Aspartate Amino Transferase 36 U/L (14-36); Bilirubin,Total 0.3 mg/dL (0.2-1.3); Blood Urea Nitrogen 23 mg/dL (7-17); Calcium 9.9 mg/dL (8.4-10.2); Carbon Dioxide 26 mmol/L (22-30); Chloride 102 mmol/L (98-107); D Dimer 0.34 ug/mL (<0.48); Estimated CRCL calculation 47 ml/min; Estimated Glomerular Filt Rate 46; Glucose 100 mg/dL (65-110); Lipase 69 U/L (23-300); Magnesium 1.8 mg/dL (1.6-2.3); Potassium 3.9 mmol/L (3.4-5.0); Sodium 140 mmol/L (137-145)
[2021-05-06 06:44] LABS: Troponin I < 0.012 ng/mL (0.000-0.034)
--- NOTE | 2021-05-06 06:50 | ED.GENADULT ---
HPI - General Adult General Chief complaint: Weakness <Eyal Osei MD - Last Filed: 05/06/21 06:55> Stated complaint: fever <Eyal Osei MD - Last Filed: 05/06/21 06:55> Time Seen by Provider: 05/06/21 05:28 <Eyal Osei MD - Last Filed: 05/06/21 06:55> History of Present Illness HPI narrative: Patient is a 60-year-old female who presents the emergency department with chief complaint of generalized malaise. The patient reports has been having body aches has had some nausea had some vomiting had a fever. Patient states that she has had 1 vaccine dose of the COVID-19 vaccine patient reports that she had some nausea but that is subsequently calm down the patient reports she had discomfort in her chest the patient reports multiple vague complaints. Patient reports symptoms are not improved by anything <Eyal Osei MD - Last Filed: 05/06/21 06:55> Related Data Home medications: Home Medications Medication Instructions Recorded Confirmed Prezista 800 mg PO DAILY 05/02/20 11/08/20 abacavir [Ziagen] 600 mg PO DAILY 05/02/20 11/08/20 acetaminophen 1,000 mg PO Q6H PRN 05/02/20 11/08/20 estradiol [Estrace] 1 mg PO DAILY 05/02/20 11/08/20 levothyroxine 150 mcg PO DAILY 05/02/20 11/08/20 mirtazapine 15 mg PO HS 05/02/20 11/08/20 ritonavir 100 mg PO DAILY 05/02/20 11/08/20 cyclobenzaprine 10 mg QPM PRN 10/07/20 11/08/20 <Eyal Osei MD - Last Filed: 05/06/21 06:55> Allergies/adverse reactions: Allergies Allergy/AdvReac Type Severity Reaction Status Date / Time latex Allergy Mild Rash, Verified 04/02/21 05:55 VOMITTING Sulfa (Sulfonamide Allergy Mild HIVES, Verified 04/02/21 05:55 Antibiotics) RASH, VOMITTING morphine AdvReac Unknown Nausea and Verified 04/02/21 05:55 Vomiting <Eyal Osei MD - Last Filed: 05/06/21 06:55> Review of Systems Review of Systems: A 10 system review of systems was completed on the patient and is negative except for what is stated in the HPI. Nursing and ancillary documentation was reviewed. <Eyal Osei MD - Last Filed: 05/06/21 06:55> PMFSH Past Medical History Medical History: Medical History Anemia Anxiety Arthritis Chronic kidney disease, stage 3 Baseline creatinine ranges between 1.1 and 1.40. Depression Hepatitis C Human immunodeficiency virus Hypertension Hypothyroidism Migraine headache Nephrolithiasis Seizure X2. <Eyal Osei MD - Last Filed: 05/06/21 06:55> Surgical History Surgical History: Surgical History History of appendectomy History of bilateral knee replacement History of cholecystectomy History of hysterectomy <Eyal Osei MD - Last Filed: 05/06/21 06:55> Family History Family History: Family History Other Family history unknown <Eyal Osei MD - Last Filed: 05/06/21 06:55> Social History Social History: Social History Social History: The patient lives in a townhouse in [place]. She is not currently working. She has 2 grown children, a son and a daughter, but they do not keep in touch very often. No alcohol, tobacco, or illicit substance use. At this time she does not designate a surrogate decision maker. Code status: Do not resuscitate. Gender identity (if verbalized by the patient): Female Sexual Orientation (if Verbalized by the Patient): . <Eyal Osei MD - Last Filed: 05/06/21 06:55> Exam Narrative: GENERAL: Well-appearing, well-nourished, and in no acute distress. HEAD: Normocephalic, atraumatic. EYES: PERRLA and EOMI. ENT: Nares clear, no rhinorrhea or epistaxis. M
[2021-05-06 07:29] LABS: SARS-CoV-2 RNA PCR Negative
[2021-05-06 08:00] VITALS: BP 140/95; PULSE 78; RESP 18; O2SAT 98
[2021-05-06 10:20] VITALS: RESP 18
[2021-05-06 10:29] LABS: Troponin I < 0.012 ng/mL (0.000-0.034)
== END 2021-05-06 10:20 | disposition home or self-care (01) ==
PROVIDERS: Emergency Medicine; Emergency Provider Emergency Medicine; PCP Physician Assistant
DX: B34.9 Viral infection, unspecified (principal); Z20.822 Contact with and (suspected) exposure to COVID-19; I12.9 Hypertensive chronic kidney disease with stage 1 through stage 4 chronic kidney disease, or unspecified chronic kidney disease; N18.30 Chronic kidney disease, stage 3 unspecified; E03.9 Hypothyroidism, unspecified; Z21 Asymptomatic human immunodeficiency virus [HIV] infection status; F41.9 Anxiety disorder, unspecified; F32.A Depression, unspecified; Z86.19 Personal history of other infectious and parasitic diseases; Z86.2 Personal history of diseases of the blood and blood-forming organs and certain disorders involving the immune mechanism; M19.90 Unspecified osteoarthritis, unspecified site; Z96.653 Presence of artificial knee joint, bilateral; Z66 Do not resuscitate; R94.31 Abnormal electrocardiogram [ECG] [EKG]
CPT/HCPCS: 36415; 71045; 80053; 81003; 83605; 83690; 83735; 84484; 85025; 85380; 85610; 85730; 87804; 93005; 99284; C9803; U0003; U0005

== ENCOUNTER 2021-05-08 05:24 | Emergency (ER) | payer MEDICARE, SELFPAY ==
--- NOTE | ~2021-05-08 | XR_ITS ---
EXAMINATION: XR chest 1V portable DATE: 05/08/2021 06:13 INDICATION: Chest pain and worsening dyspnea TECHNIQUE: frontal view of the chest was obtained. COMPARISON: Chest radiograph dated 05/06/[address] dated 04/02/2021 FINDINGS: The lungs remain clear with no focal airspace opacities, pulmonary edema, pleural effusion or pneumot horax. The cardiomediastinal silhouette is normal. A few old anterior right rib fractures. IMPRESSION: 1. No acute cardiopulmonary disease. Reviewed, dictated and finalized at location A. H COURT JUDGE
[2021-05-08 05:33] VITALS: PULSE 82; RESP 20; TEMP 36.8; O2SAT 100
--- NOTE | 2021-05-08 05:46 | ECG_ITS ---
Measurements Intervals [place] Rate: 79 P: 75 VT: 169 QRS: 55 QRSD: 78 T: 75 QT: 359 QTc: 414 Interpretive Statements SINUS RHYTHM RSR' IN V1 OR V2, PROBABLY NORMAL VARIANT BORDERLINE ST-T WAVE ABNORMALITY- HIGH LATERAL LEADS BASELINE ARTIFACT- I, II, III, AVR, AVL, AVF, V1-V6 BORDERLINE ECG Electronically Signed On 05-08-2021 8:51:10 GLASS BEAD MAKER by Akhil Lindo D.O.
--- NOTE | 2021-05-08 05:49 | ED.GENADULT ---
HPI - General Adult General Chief complaint: Upper Respiratory Infection <Eyal Osei MD - Last Filed: 05/08/21 06:15> Stated complaint: r shoulder pain <Eyal Osei MD - Last Filed: 05/08/21 06:15> Time Seen by Provider: 05/08/21 05:40 <Eyal Osei MD - Last Filed: 05/08/21 06:15> History of Present Illness HPI narrative: Patient 58-year-old female who presents the emergency department with chief complaint of chest pain and back pain. Patient reports that she was seen in the emergency department recently and diagnosed with a viral syndrome. The patient had negative influenza and a negative COVID test. Patient states that today she started having a sharp-like pain worse with inspiration and improved with rest. <Eyal Osei MD - Last Filed: 05/08/21 06:15> Related Data Home medications: Home Medications Medication Instructions Recorded Confirmed Prezista 800 mg PO DAILY 05/02/20 11/08/20 abacavir [Ziagen] 600 mg PO DAILY 05/02/20 11/08/20 acetaminophen 1,000 mg PO Q6H PRN 05/02/20 11/08/20 estradiol [Estrace] 1 mg PO DAILY 05/02/20 11/08/20 levothyroxine 150 mcg PO DAILY 05/02/20 11/08/20 mirtazapine 15 mg PO HS 05/02/20 11/08/20 ritonavir 100 mg PO DAILY 05/02/20 11/08/20 cyclobenzaprine 10 mg QPM PRN 10/07/20 11/08/20 <Eyal Osei MD - Last Filed: 05/08/21 06:15> Allergies/adverse reactions: Allergies Allergy/AdvReac Type Severity Reaction Status Date / Time latex Allergy Mild Rash, Verified 04/02/21 05:55 VOMITTING Sulfa (Sulfonamide Allergy Mild HIVES, Verified 04/02/21 05:55 Antibiotics) RASH, VOMITTING morphine AdvReac Unknown Nausea and Verified 04/02/21 05:55 Vomiting <Eyal Osei MD - Last Filed: 05/08/21 06:15> Review of Systems Review of Systems: A 10 system review of systems was completed on the patient and is negative except for what is stated in the HPI. Nursing and ancillary documentation was reviewed. <Eyal Osei MD - Last Filed: 05/08/21 06:15> PMFSH Past Medical History Medical History: Medical History Anemia Anxiety Arthritis Chronic kidney disease, stage 3 Baseline creatinine ranges between 1.1 and 1.40. Depression Hepatitis C Human immunodeficiency virus Hypertension Hypothyroidism Migraine headache Nephrolithiasis Seizure X2. <Eyal Osei MD - Last Filed: 05/08/21 06:15> Surgical History Surgical History: Surgical History History of appendectomy History of bilateral knee replacement History of cholecystectomy History of hysterectomy <Eyal Osei MD - Last Filed: 05/08/21 06:15> Family History Family History: Family History Other Family history unknown <Eyal Osei MD - Last Filed: 05/08/21 06:15> Social History Social History: Social History Social History: The patient lives in a [place] in [place]. She is not currently working. She has 2 grown children, a son and a daughter, but they do not keep in touch very often. No alcohol, tobacco, or illicit substance use. At this time she does not designate a surrogate decision maker. Code status: Do not resuscitate. Gender identity (if verbalized by the patient): Female Sexual Orientation (if Verbalized by the Patient): . <Eyal Osei MD - Last Filed: 05/08/21 06:15> Exam Narrative: GENERAL: Well-appearing, well-nourished, and in no acute distress. HEAD: Normocephalic, atraumatic. EYES: PERRLA and EOMI. ENT: Nares clear, no rhinorrhea or epistaxis. Mucous membranes moist. NECK: Supple. CHEST: Clear to auscultation. No respiratory distre
[2021-05-08 06:12] VITALS: BP 127/112
[2021-05-08 06:36] LABS: Basophils Percent Auto 0.3 % (0.2-1.2); Eosinophils Absolute Auto 0.1 K/mm3 (0-0.3); Eosinophils Percent Auto 2.1 % (0-4.4); Hematocrit 37.1 % (37.0-47.0); Hemoglobin 12.5 g/dL (12.0-15.0); Immature Granulocyte Absolute 0.01 K/mm3 (0.00-0.031); Immature Granulocyte Percent A 0.3 % (0-0.5); Lymphocytes Absolute Auto 0.74 K/mm3 (0.9-3.2); Lymphocytes Percent Auto 22.4 % (18.3-44.2); Mean Corpuscular HGB Conc 33.7 g/dl (32-36); Mean Corpuscular Hemoglobin 28.6 pg (26-34); Mean Corpuscular Volume 84.9 fl (80-100); Mean Platelet Volume 9.7 fl (7.4-10.4); Monocytes Absolute Auto 0.4 K/mm3 (0.1-0.6); Neutrophils Absolute Auto 2.1 K/mm3 (1.3-6.7); Neutrophils Percent Auto 61.9 % (45.5-73.1); Platelet Count Result 177 k/mm3 (150-375); Red Blood Count 4.37 M/mm3 (4.2-5.4); Red Cell Distribution Width 14.5 % (11.5-14.5); White Blood Count 3.3 K/mm3 (4.5-10.0)
[2021-05-08 06:39] LABS: Add Urine Microscopic? NO; Appearance Urine Clear (Clear); Bilirubin Urine Negative (Negative); Blood Urine Negative (Negative); Color Urine Straw (Yellow); Glucose Urine UA Negative (Negative); Ketones Urine Negative (Negative); Leukocyte Esterase Ur Negative LEU/UL (Negative); Nitrate Urine Negative (Negative); Protein Urine Negative (Negative); Urobilinogen Urine Negative mg/dL (<2.0)
[2021-05-08 06:47] LABS: INR 0.9; Prothrombin Time 12.1 Seconds (11.1-14.7)
[2021-05-08 06:48] LABS: Partial Thromboplastin Time 30.4 SECONDS (22.3-36.8)
[2021-05-08 06:51] LABS: D Dimer 0.38 ug/mL (<0.48)
[2021-05-08 06:58] LABS: Alanine Aminotransferase 16 U/L (4-35); Albumin Level 4.8 g/dL (3.5-5.1); Alkaline Phosphatase 66 U/L (38-126); Anion Gap 10 mmol/L (8-16); Aspartate Amino Transferase 26 U/L (14-36); Bilirubin,Total 0.4 mg/dL (0.2-1.3); Blood Urea Nitrogen 17 mg/dL (7-17); Calcium 9.4 mg/dL (8.4-10.2); Carbon Dioxide 25 mmol/L (22-30); Chloride 105 mmol/L (98-107); Estimated Glomerular Filt Rate 42; Glucose 99 mg/dL (65-110); Potassium 3.6 mmol/L (3.4-5.0); Sodium 140 mmol/L (137-145)
[2021-05-08 07:09] LABS: NT Pro B Type Natriuretic Pept 99 pg/mL (5-100); Troponin I < 0.012 ng/mL (0.000-0.034)
[2021-05-08 07:38] VITALS: PULSE 83; RESP 11; O2SAT 100
[2021-05-08] MEDS: ACETAMINOPHEN 325 MG TABLET 650 MG PO (09:18)
[2021-05-08 09:48] VITALS: TEMP 36.8
[2021-05-08 09:53] LABS: Troponin I < 0.012 ng/mL (0.000-0.034)
[2021-05-08 10:04] VITALS: BP 155/93; PULSE 83; RESP 12; O2SAT 100
== END 2021-05-08 10:08 | disposition home or self-care (01) ==
PROVIDERS: Emergency Medicine; Emergency Provider Emergency Medicine; PCP Physician Assistant
DX: R09.1 Pleurisy (principal); D64.9 Anemia, unspecified; I12.9 Hypertensive chronic kidney disease with stage 1 through stage 4 chronic kidney disease, or unspecified chronic kidney disease; N18.30 Chronic kidney disease, stage 3 unspecified; E03.9 Hypothyroidism, unspecified; M19.90 Unspecified osteoarthritis, unspecified site; F41.9 Anxiety disorder, unspecified; F32.A Depression, unspecified; R94.31 Abnormal electrocardiogram [ECG] [EKG]; Z21 Asymptomatic human immunodeficiency virus [HIV] infection status; Z86.19 Personal history of other infectious and parasitic diseases; Z86.2 Personal history of diseases of the blood and blood-forming organs and certain disorders involving the immune mechanism; Z87.442 Personal history of urinary calculi; Z96.653 Presence of artificial knee joint, bilateral; Z66 Do not resuscitate
CPT/HCPCS: 36415; 71045; 80053; 81003; 83880; 84484; 85025; 85380; 85610; 85730; 93005; 99284; A9270

== ENCOUNTER 2021-07-02 02:10 | Emergency (ER) | payer MEDICARE, SELFPAY ==
--- NOTE | ~2021-07-02 | XR_ITS ---
EXAMINATION: XR chest 2V DATE: 07/02/2021 02:41 INDICATION: Chest pain. Fever. TECHNIQUE: Frontal and lateral views of the chest were obtained. COMPARISON: Chest single view 05/08/2021, chest 2 views 11/10/2020 FINDINGS: The chest demonstrates clear lungs without pneumonia, pleural effusion, or pneumothorax. Th e heart size is normal. Again seen is vertebral plana involving a midthoracic vertebral body with foc al kyphosis. IMPRESSION: 1. No acute cardiopulmonary disease. Reviewed, dictated and finalized at location A. IPITATION EQUIPMENT TENDER
[2021-07-02 02:13] VITALS: BP 122/83; PULSE 82; RESP 12; TEMP 36.6; O2SAT 97
--- NOTE | 2021-07-02 02:20 | ECG_ITS ---
Measurements Intervals [place] Rate: 65 P: 74 NC: 167 QRS: 59 QRSD: 77 T: 83 QT: 373 QTc: 389 Interpretive Statements SINUS RHYTHM WITH OCCASIONAL ECTOPIC PREMATURE COMPLEXES BASELINE ARTIFACT Electronically Signed On 07-02-2021 9:45:10 [employer]ALL MACHINE TENDER by Nikhil Mcintyre M.D.
[2021-07-02 02:23] VITALS: PULSE 93; O2SAT 97
--- NOTE | 2021-07-02 02:24 | ED.CHESTPAIN ---
HPI - Chest Pain General Chief Complaint: Chest Pain Stated Complaint: chest pain Time Seen by Provider: 07/02/21 02:21 Source: patient Mode of arrival: EMS Limitations: no limitations History of Present Illness HPI narrative: Patient is a 60-year-old female complain of chest pain, midsternal, burning, 8 out of 10, radiating to left back, accompanied by cough, and fever that started 3 days ago. Patient denies any shortness of breath, abdominal pain, nausea, vomiting, or diaphoresis. Patient states that she was here more than a month ago for similar complaints. Patient had a cardiac work-up and a CTA of her chest done at that time, was diagnosed with pleurisy. Related Data Home Medications Medication Instructions Recorded Confirmed Prezista 800 mg PO DAILY 05/02/20 11/08/20 abacavir [Ziagen] 600 mg PO DAILY 05/02/20 11/08/20 acetaminophen 1,000 mg PO Q6H PRN 05/02/20 11/08/20 estradiol [Estrace] 1 mg PO DAILY 05/02/20 11/08/20 levothyroxine 150 mcg PO DAILY 05/02/20 11/08/20 mirtazapine 15 mg PO HS 05/02/20 11/08/20 ritonavir 100 mg PO DAILY 05/02/20 11/08/20 cyclobenzaprine 10 mg QPM PRN 10/07/20 11/08/20 Allergies Allergy/AdvReac Type Severity Reaction Status Date / Time latex Allergy Mild Rash, Verified 04/02/21 05:55 VOMITTING Sulfa (Sulfonamide Allergy Mild HIVES, Verified 04/02/21 05:55 Antibiotics) RASH, VOMITTING morphine AdvReac Unknown Nausea and Verified 04/02/21 05:55 Vomiting Review of Systems Review of Systems: All systems reviewed & are unremarkable except as noted in HPI and below Constitutional: Constitutional: Denies body ache(s), Denies chills, Denies excessive sweating, Denies fatigue, Denies fever(s), Denies headache(s), Denies lethargy, Denies malaise, Denies weakness and Denies weight loss Eyes: Eyes: Denies blurry vision, Denies change in vision and Denies loss of vision ENT: Denies dizziness, Denies ear discharge, Denies headache(s), Denies lip swelling, Denies epistaxis, Denies nasal congestion, Denies neck pain, Denies throat swelling and Denies tongue swelling Cardiovascular: Cardiovascular: Denies diaphoresis, Denies rapid heart rate, Denies edema, Denies irregular heart rhythm, Denies lightheadedness, Denies palpitations, Denies dyspnea and Denies dyspnea on exertion Respiratory: Respiratory: Denies chest congestion, Denies cough, Denies hemoptysis, Denies dyspnea and Denies dyspnea on exertion Gastrointestinal: Gastrointestinal: Denies abdominal pain, Denies melena, Denies hematochezia, Denies diarrhea, Denies nausea, Denies vomiting and Denies hematemesis Musculoskeletal: Musculoskeletal: Denies abnormal gait, Denies deformity, Denies joint swelling, Denies limited range of motion, Denies neck pain and Denies numbness Neurologic: Denies Abnormal speech present, Denies abnormal gait, Denies confusion, Denies dizziness, Denies headache(s), Denies focal weakness, Denies loss of vision, Denies numbness, Denies Other visual disturbances, Denies Sensory deficit (Neuro) and Denies weakness Psychiatric: Psychiatric: Denies confusion, Denies depression, Denies auditory hallucinations, Denies homicidal ideation and Denies suicidal ideation Endocrine: Endocrine: Denies cold intolerance, Denies excessive sweating, Denies fatigue, Denies heat intolerance and Denies palpitations Hematologic/Lymphatic: Hematologic/Lymphatic: Denies easy bleeding and Denies easy bruising Allergic/Immunologic: Allergic/Immunologic: Denies lip swelling, Denies throat swelling and Denies tongue swelling PMFSH Past Medical History Medical History Anemia Anxiety Arthritis Chronic kidney disease, stage 3 Baseline creatinine ranges between 1.1 and 1.40. Depression Hepatitis C Human immunodeficiency virus Hypertension Hypothyroidism Migraine headache Nephrolithiasis Seizure X2. Surgical History Surgical History (Reviewed 07/02/21 @ 02:25 by Bam
[2021-07-02 02:34] LABS: Basophils Percent Auto 0.6 % (0.2-1.2); Eosinophils Absolute Auto 0.1 K/mm3 (0-0.3); Eosinophils Percent Auto 3.1 % (0-4.4); Hematocrit 40.8 % (37.0-47.0); Hemoglobin 13.4 g/dL (12.0-15.0); Immature Granulocyte Absolute 0.02 K/mm3 (0.00-0.031); Immature Granulocyte Percent A 0.6 % (0-0.5); Lymphocytes Absolute Auto 1.12 K/mm3 (0.9-3.2); Lymphocytes Percent Auto 34.8 % (18.3-44.2); Mean Corpuscular HGB Conc 32.8 g/dl (32-36); Mean Corpuscular Hemoglobin 29.3 pg (26-34); Mean Corpuscular Volume 89.1 fl (80-100); Mean Platelet Volume 9.7 fl (7.4-10.4); Monocytes Absolute Auto 0.4 K/mm3 (0.1-0.6); Monocytes Percent Auto 11.8 % (2.6-8.5); Neutrophils Absolute Auto 1.6 K/mm3 (1.3-6.7); Neutrophils Percent Auto 49.1 % (45.5-73.1); Platelet Count Result 172 k/mm3 (150-375); Red Blood Count 4.58 M/mm3 (4.2-5.4); Red Cell Distribution Width 14.2 % (11.5-14.5); White Blood Count 3.2 K/mm3 (4.5-10.0)
[2021-07-02 02:42] LABS: INR 0.9; Prothrombin Time 12.1 Seconds (11.1-14.7)
[2021-07-02 02:45] LABS: Alanine Aminotransferase 17 U/L (4-35); Albumin Level 4.5 g/dL (3.5-5.1); Alkaline Phosphatase 76 U/L (38-126); Anion Gap 8 mmol/L (8-16); Aspartate Amino Transferase 32 U/L (14-36); Bilirubin,Total 0.4 mg/dL (0.2-1.3); Blood Urea Nitrogen 20 mg/dL (7-17); Calcium 8.8 mg/dL (8.4-10.2); Carbon Dioxide 27 mmol/L (22-30); Chloride 103 mmol/L (98-107); Estimated Glomerular Filt Rate 42; Glucose 94 mg/dL (65-110); Lipase 83 U/L (23-300); Potassium 3.5 mmol/L (3.4-5.0); Sodium 138 mmol/L (137-145)
[2021-07-02 02:56] LABS: Troponin I < 0.012 ng/mL (0.000-0.034)
[2021-07-02 03:25] VITALS: PULSE 82; RESP 16; O2SAT 99
[2021-07-02] MEDS: ACETAMINOPHEN 325 MG TABLET 650 MG PO (03:34)
[2021-07-02 05:52] LABS: Troponin I < 0.012 ng/mL (0.000-0.034)
[2021-07-02 06:17] VITALS: BP 106/83; PULSE 66; RESP 14; O2SAT 100
== END 2021-07-02 06:19 | disposition home or self-care (01) ==
PROVIDERS: Emergency Provider Emergency Medicine; PCP Physician Assistant
DX: R07.89 Other chest pain (principal); I12.9 Hypertensive chronic kidney disease with stage 1 through stage 4 chronic kidney disease, or unspecified chronic kidney disease; N18.30 Chronic kidney disease, stage 3 unspecified; M19.90 Unspecified osteoarthritis, unspecified site; Z21 Asymptomatic human immunodeficiency virus [HIV] infection status; E03.9 Hypothyroidism, unspecified; F32.A Depression, unspecified; F41.9 Anxiety disorder, unspecified; Z87.442 Personal history of urinary calculi; Z96.653 Presence of artificial knee joint, bilateral; Z86.19 Personal history of other infectious and parasitic diseases
CPT/HCPCS: 36415; 71046; 80053; 83690; 84484; 85025; 85610; 85730; 93005; 99284; A9270

== ENCOUNTER 2021-07-08 05:49 | Emergency (ER) | payer MEDICARE, SELFPAY ==
[2021-07-08] VITALS (20 sets, daily range): BP systolic 111–135; BP diastolic 81–101; PULSE 74–85; RESP 8–25; TEMP 36.9; O2SAT 7–100
--- NOTE | ~2021-07-08 | XR_ITS ---
EXAMINATION: XR chest 2V DATE: 07/08/2021 07:29 INDICATION: Mid sternal chest pain TECHNIQUE: PA and lateral views of the chest were obtained. COMPARISON: Chest radiograph dated 07/02/2021 FINDINGS: The lungs remain clear with no focal airspace opacities, pulmonary edema, pleural effusion or pneumot horax. The cardiomediastinal silhouette is normal. Chronic T8 first fracture with vertebra plana and associated focal mild thoracic kyphosis. IMPRESSION: 1. No acute cardiopulmonary disease. Reviewed, dictated and finalized at location A.
--- NOTE | ~2021-07-08 | CT_ITS ---
EXAMINATION: CTA chest PE protocol DATE: 07/08/2021 08:50 INDICATION: Pulmonary embolism TECHNIQUE: Computed tomography (CT) pulmonary angiogram of the chest was performed with 100 mL Omnipa que-350 intravenous contrast. Additional 3D reconstructions utilizing coronal maximum intensity proje ction (MIP) were performed. Automated exposure control and iterative reconstruction technique were em ployed. The dose-length product was 351.38 mGy-cm. COMPARISON: None FINDINGS: Excellent contrast opacification of the pulmonary arteries. There is mild streak artifact from dense contrast in the superior vena cava and right atrium. Significant motion artifact yielding diagnostic quality study which demonstrates no pulmonary embolism. No pneumonia, pulmonary edema, pleural effusi on or pneumothorax. Heart size is normal. No pericardial effusion. Small sliding-type hiatal hernia. Mild wall thickening at the distal esophagus suggestive of esophagitis. Thoracic aorta is normal in c aliber with no dissection. No pathologically enlarged thoracic lymphadenopathy. Chronic T8 burst frac ture with vertebra plana, mild kyphosis, and 5 mm retropulsion resulting in mild central canal stenos is. Chronic mild T12 compression fracture. IMPRESSION: 1. No pulmonary embolism or other acute cardiopulmonary disease. 2. Small sliding-type hiatal hernia with mild wall thickening the distal esophagus suggestive of refl ux esophagitis. Reviewed, dictated and finalized at location A. IMPRESSION: 1. No pulmonary embolism or other acute cardiopulmonary disease. 2. Small sliding-type hiatal hernia with mild wall thickening the distal esopha [place] suggestive of reflux esophagitis.
--- NOTE | 2021-07-08 06:02 | ECG_ITS ---
Measurements Intervals [place] Rate: 77 P: 69 CT: 204 QRS: 4 QRSD: 81 T: 66 QT: 359 QTc: 408 Interpretive Statements SINUS RHYTHM POSSIBLE RIGHT VENTRICULAR CONDUCTION DELAY [RSR (QR) IN V1/V2] COMPARED TO ECG 07/02/2021 02:19:15 NO SIGNIFICANT CHANGES Electronically Signed On 07-08-2021 14:19:28 CDT by Damaso Lauren M.D.
[2021-07-08 07:36] LABS: Add Urine Microscopic? NO; Appearance Urine Clear (Clear); Bilirubin Urine Negative (Negative); Blood Urine Negative (Negative); Color Urine Straw (Yellow); Glucose Urine UA Negative (Negative); Ketones Urine Negative (Negative); Leukocyte Esterase Ur Negative LEU/UL (Negative); Nitrate Urine Negative (Negative); Protein Urine Negative (Negative); Specific Grav Ur 1.006 (1.001-1.035); Urobilinogen Urine Negative mg/dL (<2.0)
[2021-07-08 07:53] LABS: Basophils Percent Auto 0.7 % (0.2-1.2); Eosinophils Absolute Auto 0.1 K/mm3 (0-0.3); Eosinophils Percent Auto 2.3 % (0-4.4); Hematocrit 38.7 % (37.0-47.0); Lymphocytes Absolute Auto 0.79 K/mm3 (0.9-3.2); Lymphocytes Percent Auto 26.2 % (18.3-44.2); Mean Corpuscular HGB Conc 33.6 g/dl (32-36); Mean Corpuscular Hemoglobin 29.5 pg (26-34); Mean Corpuscular Volume 87.8 fl (80-100); Monocytes Absolute Auto 0.3 K/mm3 (0.1-0.6); Monocytes Percent Auto 10.3 % (2.6-8.5); Neutrophils Absolute Auto 1.8 K/mm3 (1.3-6.7); Neutrophils Percent Auto 60.5 % (45.5-73.1); Platelet Count Result 161 k/mm3 (150-375); Red Blood Count 4.41 M/mm3 (4.2-5.4); Red Cell Distribution Width 13.8 % (11.5-14.5)
--- NOTE | 2021-07-08 07:53 | ED.CHESTPAIN ---
HPI - Chest Pain General Chief Complaint: Chest Pain Stated Complaint: pleurisy and anxiety med refill Time Seen by Provider: 07/08/21 07:01 Source: patient Mode of arrival: ambulatory Limitations: no limitations History of Present Illness HPI narrative: This is a 60 year old female with history of HIV, hypothyroidism, and anxiety who presents for evaluation of right sternal chest pain. She states she has been having intermittent right sternal chest pain and right back pain for 2 days. She has been evaluated for similar pain multiple times and her most recent visit was 1 week ago. She states she was diagnosed with pleurisy. She also reports shortness of breath. Her pain is worse with breathing. She also reports having fever 2 days ago of 102. She reports sore throat and mild cough. She has intermittent lower abdominal pain. Related Data Home Medications Medication Instructions Recorded Confirmed Prezista 800 mg PO DAILY 05/02/20 11/08/20 abacavir [Ziagen] 600 mg PO DAILY 05/02/20 11/08/20 acetaminophen 1,000 mg PO Q6H PRN 05/02/20 11/08/20 estradiol [Estrace] 1 mg PO DAILY 05/02/20 11/08/20 levothyroxine 150 mcg PO DAILY 05/02/20 11/08/20 mirtazapine 15 mg PO HS 05/02/20 11/08/20 ritonavir 100 mg PO DAILY 05/02/20 11/08/20 cyclobenzaprine 10 mg QPM PRN 10/07/20 11/08/20 Allergies Allergy/AdvReac Type Severity Reaction Status Date / Time latex Allergy Mild Rash, Verified 04/02/21 05:55 VOMITTING Sulfa (Sulfonamide Allergy Mild HIVES, Verified 04/02/21 05:55 Antibiotics) RASH, VOMITTING morphine AdvReac Unknown Nausea and Verified 04/02/21 05:55 Vomiting Review of Systems Review of Systems: All systems reviewed & are unremarkable except as noted in HPI and below PMFSH Past Medical History Medical History Anemia Anxiety Arthritis Chronic kidney disease, stage 3 Baseline creatinine ranges between 1.1 and 1.40. Depression Hepatitis C Human immunodeficiency virus Hypertension Hypothyroidism Migraine headache Nephrolithiasis Seizure X2. Surgical History Surgical History History of appendectomy History of bilateral knee replacement History of cholecystectomy History of hysterectomy Family History Family History Other Family history unknown Social History Social History Social History: The patient lives in a townhouse in [place]. She is not currently working. She has 2 grown children, a son and a daughter, but they do not keep in touch very often. No alcohol, tobacco, or illicit substance use. At this time she does not designate a surrogate decision maker. Code status: Do not resuscitate. Gender identity (if verbalized by the patient): Female Sexual Orientation (if Verbalized by the Patient): . Exam Const: General: no acute distress and alert Orientation/consciousness: patient oriented x3 Eyes: EOM: EOMs intact bilaterally Chest: Chest palpation & inspection: tenderness Other: reproducible chest tenderness Resp: Effort & Inspection: normal respiratory effort and no retractions Auscultation: clear to auscultation bilaterally Cardio: Rate: regular rate Rhythm: regular rhythm Heart sounds: no murmurs GI: GI Palp: Yes Soft to palpation, No Tenderness to palpation present (GI) and No Guarding due to palpation present (GI) Auscultation: normal bowel sounds Skin: General skin exam: normal color Neuro: General: patient oriented x3, moves all extremities and CN's II-XI intact bilaterally Psych: Mental Status: mental status grossly normal Affect: normal affect Course Reevaluation(s) Reevaluation #1: PAtient presents for atypical reproducible pain. I discussed cT and will place on PPI. She is eager for discharge to [facility]
[2021-07-08 07:58] LABS: Alanine Aminotransferase 14 U/L (4-35); Albumin Level 4.6 g/dL (3.5-5.1); Alkaline Phosphatase 68 U/L (38-126); Anion Gap 9 mmol/L (8-16); Aspartate Amino Transferase 29 U/L (14-36); Bilirubin,Total 0.4 mg/dL (0.2-1.3); Blood Urea Nitrogen 16 mg/dL (7-17); Calcium 8.9 mg/dL (8.4-10.2); Carbon Dioxide 26 mmol/L (22-30); Chloride 105 mmol/L (98-107); Estimated CRCL calculation 43 ml/min; Estimated Glomerular Filt Rate 42; Glucose 92 mg/dL (65-110); Lipase 37 U/L (23-300); Potassium 3.9 mmol/L (3.4-5.0); Sodium 140 mmol/L (137-145)
[2021-07-08 08:02] LABS: INR 0.9
[2021-07-08 08:03] LABS: Partial Thromboplastin Time 22.4 SECONDS (22.3-36.8)
[2021-07-08 08:05] LABS: D Dimer 0.65 ug/mL (<0.48)
[2021-07-08 08:10] LABS: Troponin I < 0.012 ng/mL (0.000-0.034)
[2021-07-08 08:14] LABS: SARS-CoV-2 RNA PCR Negative
== END 2021-07-08 10:25 | disposition home or self-care (01) ==
PROVIDERS: Emergency Provider General Practice; PCP Physician Assistant
DX: K21.9 Gastro-esophageal reflux disease without esophagitis (principal); Z20.822 Contact with and (suspected) exposure to COVID-19; I12.9 Hypertensive chronic kidney disease with stage 1 through stage 4 chronic kidney disease, or unspecified chronic kidney disease; N18.30 Chronic kidney disease, stage 3 unspecified; F41.9 Anxiety disorder, unspecified; M19.90 Unspecified osteoarthritis, unspecified site; E03.9 Hypothyroidism, unspecified; Z21 Asymptomatic human immunodeficiency virus [HIV] infection status; Z86.2 Personal history of diseases of the blood and blood-forming organs and certain disorders involving the immune mechanism; Z86.19 Personal history of other infectious and parasitic diseases; Z87.442 Personal history of urinary calculi; Z96.653 Presence of artificial knee joint, bilateral; K44.9 Diaphragmatic hernia without obstruction or gangrene
CPT/HCPCS: 36415; 71046; 71275; 80053; 81003; 83690; 84484; 85025; 85380; 85610; 85730; 87804; 93005; 99284; C9803; Q9967; U0003; U0005

== ENCOUNTER 2021-07-11 03:25 | Emergency (ER) | payer MEDICARE, SELFPAY ==
--- NOTE | ~2021-07-11 | XR_ITS ---
EXAMINATION: XR chest 2V DATE: 07/11/2021 04:03 INDICATION: Chest pain TECHNIQUE: frontal and lateral views of the chest were obtained. COMPARISON: Chest radiograph and CT dated 07/08/2021 FINDINGS: The lungs remain clear with no focal airspace opacities, pulmonary edema, pleural effusion or pneumot horax. Heart size is normal. Small hiatal hernia. Visualized bones and soft tissues are unremarkable. IMPRESSION: 1. No acute cardiopulmonary disease. 2. Small hiatal hernia. Reviewed, dictated and finalized at location A.
[2021-07-11 03:25] VITALS: PULSE 90; RESP 14; TEMP 36.3; O2SAT 98
--- NOTE | 2021-07-11 03:29 | ECG_ITS ---
Measurements Intervals [place] Rate: 84 P: 52 NM: 191 QRS: 6 QRSD: 82 T: 46 QT: 361 QTc: 427 Interpretive Statements SINUS RHYTHM NONSPECIFIC T-WAVE ABNORMALITY COMPARED TO ECG 07/08/2021 06:10:36 T-WAVE ABNORMALITY NOW PRESENT Electronically Signed On 07-11-2021 13:57:40 CDT by Joanna Streeter M.D.
--- NOTE | 2021-07-11 03:38 | ED.CHESTPAIN ---
HPI - Chest Pain General Chief Complaint: Chest Pain Stated Complaint: CHEST PAIN SEEN HERE EARLIER Time Seen by Provider: 07/11/21 03:28 Source: patient History of Present Illness HPI narrative: Patient presents with right-sided chest pain she has been seen here her several times over the past couple weeks for similar complaint. She has had multiple imaging studies which were clinically unremarkable. She was last seen approximately 2 days ago imaging showed some esophagitis she was sent home on some omeprazole. Reports she is not feeling any better so she returns ER for further evaluation. Reports right sided sharp pain that radiates to her shoulder blade is constant is worse with laying flat does cause some shortness of breath. Denies cough fevers abdominal pain nausea vomiting Related Data Home Medications Medication Instructions Recorded Confirmed Prezista 800 mg PO DAILY 05/02/20 11/08/20 abacavir [Ziagen] 600 mg PO DAILY 05/02/20 11/08/20 acetaminophen 1,000 mg PO Q6H PRN 05/02/20 11/08/20 estradiol [Estrace] 1 mg PO DAILY 05/02/20 11/08/20 levothyroxine 150 mcg PO DAILY 05/02/20 11/08/20 mirtazapine 15 mg PO HS 05/02/20 11/08/20 ritonavir 100 mg PO DAILY 05/02/20 11/08/20 cyclobenzaprine 10 mg QPM PRN 10/07/20 11/08/20 Allergies Allergy/AdvReac Type Severity Reaction Status Date / Time latex Allergy Mild Rash, Verified 04/02/21 05:55 VOMITTING Sulfa (Sulfonamide Allergy Mild HIVES, Verified 04/02/21 05:55 Antibiotics) RASH, VOMITTING morphine AdvReac Unknown Nausea and Verified 04/02/21 05:55 Vomiting Review of Systems Review of Systems: CONSTITUTIONAL: Denies fever, chills, or sweats. EYES: Denies visual changes, redness, or discharge. ENT: Denies rhinorrhea, congestion, sore throat, or otalgia. CARDIOVASCULAR: Denies chest pain, palpitations, or edema. RESPIRATORY: Denies cough or dyspnea. GASTROINTESTINAL: Denies abdominal pain, nausea, vomiting, or diarrhea. GENITOURINARY: Denies dysuria or hematuria. SKIN: Denies rash or itching. MUSCULOSKELETAL: Denies back pain, joint pain, or myalgia. NEUROLOGIC: Denies headache, numbness, dizziness, or weakness. PSYCHIATRIC: Denies anxiety or depression. All systems reviewed & are unremarkable except as noted in HPI and below PMFSH Past Medical History Medical History Anemia Anxiety Arthritis Chronic kidney disease, stage 3 Baseline creatinine ranges between 1.1 and 1.40. Depression Hepatitis C Human immunodeficiency virus Hypertension Hypothyroidism Migraine headache Nephrolithiasis Seizure X2. Surgical History Surgical History History of appendectomy History of bilateral knee replacement History of cholecystectomy History of hysterectomy Family History Family History Other Family history unknown Social History Social History Social History: The patient lives in a townhouse in [place]. She is not currently working. She has 2 grown children, a son and a daughter, but they do not keep in touch very often. No alcohol, tobacco, or illicit substance use. At this time she does not designate a surrogate decision maker. Code status: Do not resuscitate. Gender identity (if verbalized by the patient): Female Sexual Orientation (if Verbalized by the Patient): . Exam Narrative: GENERAL: Well-appearing, well-nourished, and in no acute distress. HEAD: Normocephalic, atraumatic. EYES: PERRLA and EOMI. ENT: Nares clear, no rhinorrhea or epistaxis. Mucous membranes moist. NECK: Supple. No masses. No JVD CHEST: Clear to auscultation. No respiratory distress. No wheezes rales or rhonchi HEART: Regular rate and rhythm. No murmur heard. Normal peripheral pulses. ABDOMEN: Soft, nontender, nondistended, nor
[2021-07-11 03:51] LABS: Basophils Percent Auto 0.7 % (0.2-1.2); Eosinophils Absolute Auto 0.1 K/mm3 (0-0.3); Eosinophils Percent Auto 2.7 % (0-4.4); Hematocrit 35.3 % (37.0-47.0); Immature Granulocyte Absolute 0.01 K/mm3 (0.00-0.031); Immature Granulocyte Percent A 0.3 % (0-0.5); Lymphocytes Absolute Auto 0.67 K/mm3 (0.9-3.2); Lymphocytes Percent Auto 22.3 % (18.3-44.2); Mean Corpuscular Hemoglobin 29.1 pg (26-34); Mean Corpuscular Volume 85.7 fl (80-100); Mean Platelet Volume 10.1 fl (7.4-10.4); Monocytes Absolute Auto 0.3 K/mm3 (0.1-0.6); Monocytes Percent Auto 11.3 % (2.6-8.5); Neutrophils Absolute Auto 1.9 K/mm3 (1.3-6.7); Neutrophils Percent Auto 62.7 % (45.5-73.1); Platelet Count Result 144 k/mm3 (150-375); Red Blood Count 4.12 M/mm3 (4.2-5.4); Red Cell Distribution Width 13.8 % (11.5-14.5)
[2021-07-11 04:04] LABS: Prothrombin Time 12.3 Seconds (11.1-14.7)
[2021-07-11 04:05] LABS: Partial Thromboplastin Time 25.8 SECONDS (22.3-36.8)
[2021-07-11 04:06] LABS: Alanine Aminotransferase 11 U/L (4-35); Albumin Level 4.2 g/dL (3.5-5.1); Alkaline Phosphatase 69 U/L (38-126); Anion Gap 8 mmol/L (8-16); Aspartate Amino Transferase 27 U/L (14-36); Bilirubin,Total 0.4 mg/dL (0.2-1.3); Blood Urea Nitrogen 17 mg/dL (7-17); Calcium 8.3 mg/dL (8.4-10.2); Carbon Dioxide 24 mmol/L (22-30); Chloride 107 mmol/L (98-107); Estimated CRCL calculation 47 ml/min; Estimated Glomerular Filt Rate 46; Glucose 98 mg/dL (65-110); Lipase 76 U/L (23-300); Potassium 3.3 mmol/L (3.4-5.0); Sodium 139 mmol/L (137-145)
[2021-07-11 04:17] LABS: Troponin I < 0.012 ng/mL (0.000-0.034)
[2021-07-11] MEDS: KETOROLAC 15 MG/ML VIAL (*BKC) IV PUSH (04:21)
[2021-07-11] MEDS: ONDANSETRON HCL ODT 4 MG TABLET PO (04:41)
[2021-07-11 05:05] VITALS: BP 138/83; PULSE 75; RESP 18; O2SAT 98
== END 2021-07-11 05:07 | disposition home or self-care (01) ==
PROVIDERS: Emergency Provider Emergency Medicine; PCP Physician Assistant
DX: R09.1 Pleurisy (principal); K44.9 Diaphragmatic hernia without obstruction or gangrene; I12.9 Hypertensive chronic kidney disease with stage 1 through stage 4 chronic kidney disease, or unspecified chronic kidney disease; N18.30 Chronic kidney disease, stage 3 unspecified; F41.9 Anxiety disorder, unspecified; F32.A Depression, unspecified; M19.90 Unspecified osteoarthritis, unspecified site; E03.9 Hypothyroidism, unspecified; Z21 Asymptomatic human immunodeficiency virus [HIV] infection status; Z86.2 Personal history of diseases of the blood and blood-forming organs and certain disorders involving the immune mechanism; Z86.19 Personal history of other infectious and parasitic diseases; Z87.442 Personal history of urinary calculi; Z96.653 Presence of artificial knee joint, bilateral; R94.31 Abnormal electrocardiogram [ECG] [EKG]
CPT/HCPCS: 36415; 71046; 80053; 83690; 84484; 85025; 85610; 85730; 93005; 96374; 99284; A9270; J1885

== ENCOUNTER 2021-07-17 03:31 | Emergency (ER) | payer MEDICARE, SELFPAY ==
--- NOTE | ~2021-07-17 | XR_ITS ---
EXAMINATION: XR chest 2V 07/17/2021 04:20 INDICATION: Chest pain PROCEDURE: 2 view chest COMPARISON: Comparison to multiple prior studies sequentially, with oldest reviewed study dated 11/2021. FINDINGS: The lungs are clear. The cardiomediastinal silhouette is within normal limits. There are no pleural effusions. There is no pneumothorax suspected. There is a chronic T8 burst fracture with vertebra plana. IMPRESSION: 1: NO ACUTE CARDIOPULMONARY DISEASE. Reviewed, dictated and finalized at location A.
[2021-07-17 03:30] VITALS: BP 134/93; PULSE 96; RESP 18; TEMP 36.9; O2SAT 98
--- NOTE | 2021-07-17 03:35 | ECG_ITS ---
Measurements Intervals [place] Rate: 94 P: 70 [place]: 169 QRS: 18 QRSD: 77 T: 86 QT: 347 QTc: 434 Interpretive Statements SINUS RHYTHM POSSIBLE RIGHT VENTRICULAR CONDUCTION DELAY [RSR (QR) IN V1/V2] NONSPECIFIC ST & T-WAVE ABNORMALITY ABNORMAL ECG COMPARED TO ECG 07/11/2021 03:31:19 NO SIGNIFICANT CHANGES Electronically Signed On 07-17-2021 13:59:31 CDT by Oskar Duke M.D.
[2021-07-17 03:40] VITALS: PULSE 90
--- NOTE | 2021-07-17 03:40 | ED.CHESTPAIN ---
HPI - Chest Pain General Chief Complaint: Chest Pain Stated Complaint: CP Time Seen by Provider: 07/17/21 03:39 Source: patient Mode of arrival: EMS Limitations: no limitations History of Present Illness HPI narrative: Patient is a 61-year-old female complaining of chest pain, midsternal, sharp, nonradiating, 8 out of 10 started tonight. Patient was seen here 4 days ago for similar complaints, cardiac work-up was negative at that time was diagnosed with pleurisy. Patient also had a CTA chest done last week that was negative for PE or any acute cardiopulmonary process. Patient has had multiple ER visits for similar complaints. Related Data Home Medications Medication Instructions Recorded Confirmed Prezista 800 mg PO DAILY 05/02/20 11/08/20 abacavir [Ziagen] 600 mg PO DAILY 05/02/20 11/08/20 acetaminophen 1,000 mg PO Q6H PRN 05/02/20 11/08/20 estradiol [Estrace] 1 mg PO DAILY 05/02/20 11/08/20 levothyroxine 150 mcg PO DAILY 05/02/20 11/08/20 mirtazapine 15 mg PO HS 05/02/20 11/08/20 ritonavir 100 mg PO DAILY 05/02/20 11/08/20 cyclobenzaprine 10 mg QPM PRN 10/07/20 11/08/20 Allergies Allergy/AdvReac Type Severity Reaction Status Date / Time latex Allergy Mild Rash, Verified 07/17/21 03:38 VOMITTING Sulfa (Sulfonamide Allergy Mild HIVES, Verified 07/17/21 03:38 Antibiotics) RASH, VOMITTING morphine AdvReac Unknown Nausea and Verified 07/17/21 03:38 Vomiting Review of Systems Review of Systems: All systems reviewed & are unremarkable except as noted in HPI and below Constitutional: Constitutional: Denies body ache(s), Denies chills, Denies excessive sweating, Denies fatigue, Denies fever(s), Denies headache(s), Denies lethargy, Denies malaise, Denies weakness and Denies weight loss Eyes: Eyes: Denies blurry vision, Denies change in vision and Denies loss of vision ENT: Denies dizziness, Denies ear discharge, Denies headache(s), Denies lip swelling, Denies epistaxis, Denies nasal congestion, Denies neck pain, Denies throat swelling and Denies tongue swelling Cardiovascular: Cardiovascular: Denies diaphoresis, Denies rapid heart rate, Denies edema, Denies irregular heart rhythm, Denies lightheadedness, Denies palpitations, Denies dyspnea and Denies dyspnea on exertion Respiratory: Respiratory: Denies chest congestion, Denies cough, Denies hemoptysis, Denies dyspnea and Denies dyspnea on exertion Gastrointestinal: Gastrointestinal: Denies abdominal pain, Denies melena, Denies hematochezia, Denies diarrhea, Denies nausea, Denies vomiting and Denies hematemesis Musculoskeletal: Musculoskeletal: Denies abnormal gait, Denies deformity, Denies joint swelling, Denies limited range of motion, Denies neck pain and Denies numbness Neurologic: Denies Abnormal speech present, Denies abnormal gait, Denies confusion, Denies dizziness, Denies headache(s), Denies focal weakness, Denies loss of vision, Denies numbness, Denies Other visual disturbances, Denies Sensory deficit (Neuro) and Denies weakness Psychiatric: Psychiatric: Denies confusion, Denies depression, Denies auditory hallucinations, Denies homicidal ideation and Denies suicidal ideation Endocrine: Endocrine: Denies cold intolerance, Denies excessive sweating, Denies fatigue, Denies heat intolerance and Denies palpitations Hematologic/Lymphatic: Hematologic/Lymphatic: Denies easy bleeding and Denies easy bruising Allergic/Immunologic: Allergic/Immunologic: Denies lip swelling, Denies throat swelling and Denies tongue swelling PMFSH Past Medical History Medical History Anemia Anxiety Arthritis Chronic kidney disease, stage 3 Baseline creatinine ranges between 1.1 and 1.40. Depression Hepatitis C Human immunodeficiency virus Hypertension Hypothyroidism Migraine headache Nephrolithiasis Seizure X2. Surgical History Surgical History History of
[2021-07-17 03:52] LABS: Basophils Percent Auto 0.9 % (0.2-1.2); Eosinophils Absolute Auto 0.1 K/mm3 (0-0.3); Eosinophils Percent Auto 2.1 % (0-4.4); Hematocrit 38.5 % (37.0-47.0); Hemoglobin 12.8 g/dL (12.0-15.0); Immature Granulocyte Absolute 0.01 K/mm3 (0.00-0.031); Immature Granulocyte Percent A 0.3 % (0-0.5); Lymphocytes Absolute Auto 0.88 K/mm3 (0.9-3.2); Lymphocytes Percent Auto 26.7 % (18.3-44.2); Mean Corpuscular HGB Conc 33.2 g/dl (32-36); Mean Corpuscular Hemoglobin 29.2 pg (26-34); Mean Corpuscular Volume 87.7 fl (80-100); Mean Platelet Volume 9.5 fl (7.4-10.4); Monocytes Absolute Auto 0.3 K/mm3 (0.1-0.6); Platelet Count Result 183 k/mm3 (150-375); Red Blood Count 4.39 M/mm3 (4.2-5.4); White Blood Count 3.3 K/mm3 (4.5-10.0)
[2021-07-17 04:06] LABS: INR 0.9; Prothrombin Time 11.9 Seconds (11.1-14.7)
[2021-07-17 04:07] LABS: Alanine Aminotransferase 13 U/L (4-35); Albumin Level 4.4 g/dL (3.5-5.1); Alkaline Phosphatase 84 U/L (38-126); Anion Gap 10 mmol/L (8-16); Aspartate Amino Transferase 35 U/L (14-36); Bilirubin,Total 0.2 mg/dL (0.2-1.3); Blood Urea Nitrogen 15 mg/dL (7-17); Calcium 8.7 mg/dL (8.4-10.2); Carbon Dioxide 24 mmol/L (22-30); Chloride 105 mmol/L (98-107); Estimated CRCL calculation 43 ml/min; Estimated Glomerular Filt Rate 42; Glucose 105 mg/dL (65-110); Lipase 81 U/L (23-300); Partial Thromboplastin Time 31.8 SECONDS (22.3-36.8); Potassium 3.2 mmol/L (3.4-5.0); Sodium 139 mmol/L (137-145)
[2021-07-17 04:19] LABS: Troponin I < 0.012 ng/mL (0.000-0.034)
[2021-07-17] MEDS: POTASSIUM CHLORIDE 20 MEQ PACKET (FOR LIQUID) 40 MEQ PO (05:10)
[2021-07-17 05:28] VITALS: BP 143/88; PULSE 84; RESP 18; O2SAT 99
== END 2021-07-17 05:34 | disposition home or self-care (01) ==
PROVIDERS: Emergency Provider Emergency Medicine; PCP Physician Assistant
DX: R07.89 Other chest pain (principal); D64.9 Anemia, unspecified; F41.9 Anxiety disorder, unspecified; M19.90 Unspecified osteoarthritis, unspecified site; I12.9 Hypertensive chronic kidney disease with stage 1 through stage 4 chronic kidney disease, or unspecified chronic kidney disease; N18.30 Chronic kidney disease, stage 3 unspecified; E03.9 Hypothyroidism, unspecified; G40.909 Epilepsy, unspecified, not intractable, without status epilepticus
CPT/HCPCS: 36415; 71046; 80053; 83690; 84484; 85025; 85610; 85730; 93005; 99284; A9270

== ENCOUNTER 2022-02-11 10:59 | Emergency (ER) | payer MEDICARE, SELFPAY ==
[2022-02-11] VITALS (23 sets, daily range): BP systolic 97–117; BP diastolic 69–86; PULSE 76–93; RESP 14; TEMP 36.4; O2SAT 96–100
--- NOTE | 2022-02-11 11:32 | ECG_ITS ---
Measurements Intervals [place] Rate: 80 P: 78 [place]: 167 QRS: 47 QRSD: 72 T: 105 QT: 366 QTc: 424 Interpretive Statements SINUS RHYTHM NONSPECIFIC T-WAVE ABNORMALITY ABNORMAL ECG COMPARED TO ECG 07/17/2021 03:38:06 NO SIGNIFICANT CHANGES Electronically Signed On 02-11-2022 14:12:08 CDT by Oskar Duke M.D.
[2022-02-11 11:51] LABS: Basophils Percent Auto 0.8 % (0.2-1.2); Eosinophils Absolute Auto 0.1 K/mm3 (0-0.3); Hematocrit 37.8 % (37.0-47.0); Hemoglobin 12.3 g/dL (12.0-15.0); Immature Granulocyte Absolute 0.02 K/mm3 (0.00-0.031); Immature Granulocyte Percent A 0.8 % (0-0.5); Lymphocytes Absolute Auto 0.53 K/mm3 (0.9-3.2); Lymphocytes Percent Auto 22.4 % (18.3-44.2); Mean Corpuscular HGB Conc 32.5 g/dl (32-36); Mean Corpuscular Hemoglobin 28.6 pg (26-34); Mean Corpuscular Volume 87.9 fl (80-100); Mean Platelet Volume 10.8 fl (7.4-10.4); Monocytes Absolute Auto 0.2 K/mm3 (0.1-0.6); Monocytes Percent Auto 8.9 % (2.6-8.5); Neutrophils Absolute Auto 1.5 K/mm3 (1.3-6.7); Neutrophils Percent Auto 64.1 % (45.5-73.1); Platelet Count Result 169 k/mm3 (150-375); Red Cell Distribution Width 14.7 % (11.5-14.5); White Blood Count 2.4 K/mm3 (4.5-10.0)
[2022-02-11 12:41] LABS: Prothrombin Time 12.7 Seconds (11.1-14.7)
--- NOTE | 2022-02-11 12:41 | ED.SYNCOPE ---
HPI - Syncope General Chief Complaint: Syncope Stated Complaint: fall Time Seen by Provider: 02/11/22 11:59 History of Present Illness HPI narrative: This is a 61-year-old female with past medical history of HIV, with reported undetectable viral load, who presents to the emergency department complaining of diarrhea for the past 2 days and syncopal episode yesterday. The patient states she had approximately 3 episodes of diarrhea yesterday and today has had unrelenting loose stools. She states she saw small amount of blood in her stool today. She denies fevers, chills or significant abdominal pain. She feels overall fatigued but denies cough, congestion or shortness of breath. Related Data Home Medications Medication Instructions Recorded Confirmed abacavir 300 mg tablet (Ziagen) 600 mg PO DAILY 05/02/20 11/08/20 acetaminophen 500 mg capsule 1,000 mg PO Q6H PRN Pain (Scale 05/02/20 11/08/20 Score 1-3) darunavir ethanolate 800 mg tablet 800 mg PO DAILY 05/02/20 11/08/20 (Prezista) estradiol 1 mg tablet (Estrace) 1 mg PO DAILY 05/02/20 11/08/20 levothyroxine 150 mcg tablet 150 mcg PO DAILY 05/02/20 11/08/20 mirtazapine 15 mg tablet 15 mg PO HS 05/02/20 11/08/20 ritonavir 100 mg tablet 100 mg PO DAILY 05/02/20 11/08/20 cyclobenzaprine 10 mg tablet 10 mg QPM PRN Muscle Spasm 10/07/20 11/08/20 Allergies Allergy/AdvReac Type Severity Reaction Status Date / Time latex Allergy Mild Rash, Verified 07/17/21 03:38 VOMITTING Sulfa (Sulfonamide Allergy Mild HIVES, Verified 07/17/21 03:38 Antibiotics) RASH, VOMITTING morphine AdvReac Unknown Nausea and Verified 07/17/21 03:38 Vomiting Review of Systems Review of Systems: CONSTITUTIONAL: Denies fever, chills, or sweats. EYES: Denies visual changes, redness, or discharge. ENT: Denies rhinorrhea, congestion, sore throat, or otalgia. CARDIOVASCULAR: Denies chest pain, palpitations, or edema. RESPIRATORY: Denies cough or dyspnea. GASTROINTESTINAL: Diarrhea denies abdominal pain, nausea, vomiting, GENITOURINARY: Denies dysuria or hematuria. SKIN: Denies rash or itching. MUSCULOSKELETAL: Denies back pain, joint pain, or myalgia. NEUROLOGIC: Denies headache, numbness, dizziness, or weakness. PSYCHIATRIC: Denies anxiety or depression. [facility] Past Medical History Medical History Anemia Anxiety Arthritis Chronic kidney disease, stage 3 Baseline creatinine ranges between 1.1 and 1.40. Depression Hepatitis C Human immunodeficiency virus Hypertension Hypothyroidism Migraine headache Nephrolithiasis Seizure X2. Surgical History Surgical History History of appendectomy History of bilateral knee replacement History of cholecystectomy History of hysterectomy Family History Family History Other Family history unknown Social History Social History Social History: The patient lives in a townhouse in [place]. She is not currently working. She has 2 grown children, a son and a daughter, but they do not keep in touch very often. No alcohol, tobacco, or illicit substance use. At this time she does not designate a surrogate decision maker. Code status: Do not resuscitate. Gender identity (if verbalized by the patient): Female Sexual Orientation (if Verbalized by the Patient): . Exam Narrative: GENERAL: Well-developed, thin appearing, appears uncomfortable HEAD: Normocephalic, atraumatic. EYES: PERRLA and EOMI. ENT: Nares clear, no rhinorrhea or epistaxis. Mucous membranes dry. Oropharynx without tonsillar hypertrophy exudate or other lesions. NECK: Supple. No adenopathy or masses. No carotid bruits or JVD CHEST: Clear to auscultation. No respiratory distress. No wheezes rales or rhonchi HEART: Regular rate and rhythm.
[2022-02-11 12:42] LABS: Partial Thromboplastin Time 27.4 SECONDS (22.3-36.8)
[2022-02-11 12:42] LABS: Alanine Aminotransferase 16 U/L (6-35); Albumin Level 4.8 g/dL (3.5-5.1); Alkaline Phosphatase 113 U/L (38-126); Anion Gap 12 mmol/L (8-16); Aspartate Amino Transferase 39 U/L (14-36); Bilirubin,Total 0.8 mg/dL (0.2-1.3); Blood Urea Nitrogen 22 mg/dL (7-17); Calcium 8.9 mg/dL (8.4-10.2); Carbon Dioxide 23 mmol/L (22-30); Chloride 99 mmol/L (98-107); Estimated CRCL calculation 34 ml/min; Estimated Glomerular Filt Rate 35; Glucose 141 mg/dL (65-110); Potassium 3.7 mmol/L (3.4-5.0); Sodium 134 mmol/L (137-145)
[2022-02-11] MEDS: SODIUM CHLORIDE 0.9% IV 1,000 ML 999 ML IV CONT (12:51)
[2022-02-11 14:39] LABS: Influenza A QL RT-PCR Negative (Negative); Influenza B QL RT-PCR Negative (Negative); SARS-CoV-2 RNA PCR Negative
== END 2022-02-11 16:13 | disposition home or self-care (01) ==
PROVIDERS: Emergency Medicine; Emergency Provider Preventive Medicine Aerospace Medicine; PCP Physician Assistant
DX: R19.7 Diarrhea, unspecified (principal); R55 Syncope and collapse; Z21 Asymptomatic human immunodeficiency virus [HIV] infection status; Z20.822 Contact with and (suspected) exposure to COVID-19; D64.9 Anemia, unspecified; I12.9 Hypertensive chronic kidney disease with stage 1 through stage 4 chronic kidney disease, or unspecified chronic kidney disease; N18.30 Chronic kidney disease, stage 3 unspecified; E03.9 Hypothyroidism, unspecified; M19.90 Unspecified osteoarthritis, unspecified site; Z86.19 Personal history of other infectious and parasitic diseases; Z87.442 Personal history of urinary calculi; Z79.899 Other long term (current) drug therapy; Z96.653 Presence of artificial knee joint, bilateral; Z90.710 Acquired absence of both cervix and uterus; R94.31 Abnormal electrocardiogram [ECG] [EKG]
CPT/HCPCS: 36415; 80053; 85025; 85610; 85730; 87502; 93005; 96360; 99284; C9803; J7030; U0003; U0005

== ENCOUNTER 2022-04-27 05:37 | Inpatient (IN) | payer MEDICARE, MEDICAID, SELFPAY ==
--- NOTE | ~2022-04-27 | XR_ITS ---
XR hip LT min 2V DATE: 04/29/2022 15:41 INDICATION: Postoperative examination; ORIF left femoral neck fracture TECHNIQUE: Postoperative AP and crosstable lateral views of left hip COMPARISON: 04/27/2022 left hip FINDINGS: There is surgical resection of the left femoral head and neck and placement of a bipolar hi p prosthesis, normally seated in the left acetabular fossa. There is expected immediately postoperative subcutaneous and intra-articular gas. Osteopenia. IMPRESSION: Left bipolar hip replacement Reviewed, dictated and finalized at location L. ER BUFFER
--- NOTE | ~2022-04-27 | XR_ITS ---
EXAMINATION: XR hip LT 2V w AP pelvis DATE: 04/27/2022 07:26 INDICATION: Fall. TECHNIQUE: An anteroposterior view of the pelvis and 2 views of left hip were obtained. COMPARISON: Pelvis and right hip radiographs 10/05/2020 FINDINGS: There is a subcapital fracture of left femoral neck. The distal fracture fragment demonstra roni varus angulation, shortening, and external rotation. There is severe lumbar spondylosis. There is mild osteoarthritis of the hips. Surgical clips overlie the abdomen and pelvis. IMPRESSION: 1. Displaced subcapital fracture of left femoral neck. 2. Mild osteoarthritis of the hips. Reviewed, dictated and finalized at location A. ERCIAL MORTGAGE BROKER
--- NOTE | ~2022-04-27 | XR_ITS ---
EXAMINATION: XR chest 1V DATE: 04/27/2022 07:25 INDICATION: Fall. TECHNIQUE: A single frontal view of the chest was obtained. COMPARISON: Chest 2 views 07/17/2021, chest CT 07/08/2021 FINDINGS: There is chronic mild elevation of right hemidiaphragm. No pneumonia, pleural effusion, or pneumothorax. The heart size is normal. IMPRESSION: 1. No acute cardiopulmonary disease. Reviewed, dictated and finalized at location A. RITY ARCHITECT
--- NOTE | ~2022-04-27 | XR_ITS ---
AP view of the pelvis and AP and lateral views of the left hip Clinical history: Pain COMPARISON: 04/29/2022 Findings: No acute fracture or dislocation is seen. Osseous alignment is anatomic. Left hip arthropla sty in place, without evidence of hardware complication. Right hip joint space is preserved. Postoper ative changes noted in the soft tissues about the left hip, similar to exam from 04/29/2022. Impression: No acute abnormality. Left hip arthroplasty in place. Reviewed, dictated and finalized at location . IN CAREGIVER Impression: No acute abnormality. Left hip arthroplasty in place.
--- NOTE | ~2022-04-27 | CT_ITS ---
EXAMINATION: CT brain wo con DATE: 04/27/2022 07:14 INDICATION: Head injury. TECHNIQUE: Computed tomography (CT) of the head was performed without intravenous contrast. The mA wa s adjusted according to patient size. Iterative reconstruction technique was employed. The dose-lengt h product was 908.00 mGy-cm. COMPARISON: Head CT 11/10/2020 FINDINGS: There are scattered areas of low attenuation in the cerebral white matter, which is within normal limits for the patient's age. There is no intracranial hemorrhage, acute infarction, or abnorm al intracranial mass lesion. The ventricles are normal in size. The orbits are normal. There is mucos al thickening in the paranasal sinuses. There is thickening and sclerosis of the [place] of left spheno id sinus and the posterior left ethmoid air cells, consistent with chronic sinusitis. The mastoid air cells are normal. IMPRESSION: 1. Normal aging brain. 2. Chronic sinusitis. Reviewed, dictated and finalized at location A. CTOR TESTER
[2022-04-27 05:36] VITALS: BP 144/99; PULSE 94; RESP 16; TEMP 36.7; O2SAT 100
--- NOTE | 2022-04-27 06:12 | ECG_ITS ---
Measurements Intervals [place] Rate: 96 P: 91 [place]: 215 QRS: 69 QRSD: 75 T: 89 QT: 331 QTc: 420 Interpretive Statements SINUS RHYTHM WITH FIRST DEGREE AV BLOCK EARLY PRECORDIAL R/S TRANSITION NONSPECIFIC T-WAVE ABNORMALITY- HIGH LATERAL LEADS BASELINE ARTIFACT- AVR, AVL, AVF BORDERLINE ECG COMPARED TO ECG 02/11/2022 11:37:06 FIRST DEGREE AV BLOCK NOW PRESENT Electronically Signed On 04-27-2022 7:48:57 DEPUTY BUILDING GUARD by Akhil Lindo D.O.
--- NOTE | 2022-04-27 06:12 | ED.GENADULT ---
HPI - General Adult General Chief complaint: Extremity Injury, Lower <Rahul Byrnes DO - Last Filed: 04/27/22 19:09> Stated complaint: FALL, HIP PAIN <Rahul Byrnes DO - Last Filed: 04/27/22 19:09> Time Seen by Provider: 04/27/22 05:39 <Rahul Byrnes DO - Last Filed: 04/27/22 19:09> Source: RN notes reviewed <Rahul Byrnes DO - Last Filed: 04/27/22 19:09> History of Present Illness HPI narrative: Patient presents emergency department from home for a fall. Patient states that she was getting up to go to the restroom and she slipped on her comforter and fell landing on her left hip she states she had severe pain in her left hip since that time. States she did bump her head but did not have any loss of consciousness. She denies any other trauma or injury states that she is not on any blood thinners she denies any chest pain shortness of breath abdominal pain nausea or vomiting <Rahul Byrnes DO - Last Filed: 04/27/22 19:09> Related Data Home medications: Home Medications Medication Instructions Recorded Confirmed acetaminophen 500 mg capsule 1,000 mg PO Q6H PRN Pain (Scale 05/02/20 04/27/22 Score 1-3) estradiol 1 mg tablet (Estrace) 1 mg PO DAILY 05/02/20 04/27/22 levothyroxine 150 mcg tablet 150 mcg PO DAILY 05/02/20 04/27/22 cyclobenzaprine 10 mg tablet 10 mg QPM PRN Muscle Spasm 10/07/20 04/27/22 <Rahul Byrnes DO - Last Filed: 04/27/22 19:09> Allergies/adverse reactions: Allergies Allergy/AdvReac Type Severity Reaction Status Date / Time latex Allergy Mild Rash, Verified 07/17/21 03:38 VOMITTING Sulfa (Sulfonamide Allergy Mild HIVES, Verified 07/17/21 03:38 Antibiotics) RASH, VOMITTING morphine AdvReac Unknown Nausea and Verified 07/17/21 03:38 Vomiting <Rahul Byrnes DO - Last Filed: 04/27/22 19:09> Review of Systems Review of Systems: Gen.: Denies fevers or chills Eyes: Denies eye pain or visual change ENT: Denies congestion Respiratory: Denies shortness of breath or cough CV: Denies chest pain or palpitations GI: Denies abdominal pain nausea, emesis or diarrhea Musculoskeletal: See HPI Neuro: Denies numbness, tingling, weakness or focal weakness Skin: Denies rash Except as documented, all other systems reviewed and negative <Rahul Byrnes, DO - Last Filed: 04/27/22 19:09> [facility] Past Medical History Medical History: Medical History (Updated 04/27/22 @ 15:45 by Lisa Mckeon NP) Anemia Anxiety Arthritis Chronic kidney disease, stage 3 Baseline creatinine ranges between 1.1 and 1.40. Depression Hepatitis C Human immunodeficiency virus Hypertension Hypothyroidism Migraine headache Nephrolithiasis Seizure X2. <Rahul Byrnes DO - Last Filed: 04/27/22 19:09> Surgical History Surgical History: Surgical History History of appendectomy History of bilateral knee replacement History of cholecystectomy History of hysterectomy <Rahul Byrnes DO - Last Filed: 04/27/22 19:09> Family History Family History: Family History Father Cerebrovascular accident Acute myocardial infarction Mother Cerebrovascular accident Acute myocardial infarction Mother No problems noted. <Rahul Byrnes, DO - Last Filed: 04/27/22 19:09> Social History Social History: Social History (Updated 04/27/22 @ 15:05 by Lisa Mckeon NP) Social History: The patient lives in a townhouse in [place]. She is not currently working. She has 2 grown children, a son and a daughter, but they do not keep in touch very often. No alcohol, tobacco, or illicit substance use. At this time she does not designate a surrogate decision maker. Code status: Full code Smoking status: Never smoker Alcohol intake: never Substance use type: marijuana Lack of Transp
[2022-04-27 06:25] LABS: Basophils Percent Auto 0.4 % (0.2-1.2); Eosinophils Absolute Auto 0.1 K/mm3 (0-0.3); Eosinophils Percent Auto 3.4 % (0-4.4); Hematocrit 33.3 % (37.0-47.0); Hemoglobin 10.8 g/dL (12.0-15.0); Immature Granulocyte Absolute 0.01 K/mm3 (0.00-0.031); Immature Granulocyte Percent A 0.4 % (0-0.5); Lymphocytes Absolute Auto 0.28 K/mm3 (0.9-3.2); Lymphocytes Percent Auto 12.1 % (18.3-44.2); Mean Corpuscular HGB Conc 32.4 g/dl (32-36); Mean Corpuscular Volume 89.5 fl (80-100); Mean Platelet Volume 10.6 fl (7.4-10.4); Monocytes Absolute Auto 0.2 K/mm3 (0.1-0.6); Monocytes Percent Auto 9.9 % (2.6-8.5); Neutrophils Absolute Auto 1.7 K/mm3 (1.3-6.7); Neutrophils Percent Auto 73.8 % (45.5-73.1); Platelet Count Result 143 k/mm3 (150-375); Red Blood Count 3.72 M/mm3 (4.2-5.4); White Blood Count 2.3 K/mm3 (4.5-10.0)
[2022-04-27 06:39] LABS: Prothrombin Time 12.5 Seconds (11.1-14.7)
[2022-04-27 06:40] LABS: Alanine Aminotransferase 13 U/L (6-35); Albumin Level 4.4 g/dL (3.5-5.1); Alkaline Phosphatase 69 U/L (38-126); Anion Gap 9 mmol/L (8-16); Aspartate Amino Transferase 28 U/L (14-36); Bilirubin,Total 0.7 mg/dL (0.2-1.3); Blood Urea Nitrogen 13 mg/dL (7-17); Calcium 8.5 mg/dL (8.4-10.2); Carbon Dioxide 27 mmol/L (22-30); Chloride 106 mmol/L (98-107); Estimated CRCL calculation 36 ml/min; Estimated Glomerular Filt Rate 38; Glucose 107 mg/dL (65-110); Partial Thromboplastin Time 31.4 SECONDS (22.3-36.8); Potassium 3.2 mmol/L (3.4-5.0); Sodium 142 mmol/L (137-145)
[2022-04-27 08:18] LABS: Influenza A QL RT-PCR Negative (Negative); Influenza B QL RT-PCR Negative (Negative); SARS-CoV-2 RNA PCR Negative
[2022-04-27] MEDS: HYDROmorphone HCL INJ (*CRX) 1 MG/ML SYR 0.5 MG IV PUSH (08:40)
[2022-04-27] MEDS: ONDANSETRON INJ 4 MG/2 ML VIAL 8 MG IV PUSH (08:41)
--- NOTE | 2022-04-27 09:52 | ADMGEN ---
This patient, Yashira Vazquez, was admitted to Medical Room [facility] @[facility]. Patient oriented to hospital policies and general routines including ID bracelet, bed and alarms, visiting hours, pain management, procedures, bathroom and other care routines, personal items, smoking policy, room service/diet, and visiting hours. Information on how to activate the Rapid Response Team has been discussed. Patient encouraged to report perceived risks to care and to ask questions if they do not understand what they are told or what they should do.
[2022-04-27 09:54] VITALS: BMI 19.3
[2022-04-27 09:55] VITALS: BP 130/87; PULSE 88; RESP 20; TEMP 36.2; O2SAT 100
[2022-04-27 11:53] LABS: Add Urine Microscopic? YES; Appearance Urine Clear (Clear); Bilirubin Urine Negative (Negative); Blood Urine 2+ (Negative); Color Urine Yellow (Yellow); Glucose Urine UA Negative (Negative); Ketones Urine 1+ mg/dL (Negative); Leukocyte Esterase Ur Negative LEU/UL (Negative); Nitrate Urine Negative (Negative); Protein Urine 1+ mg/dL (Negative); Urobilinogen Urine 0.2 mg/dL (<2.0); pH Urine 6.5 (5.0-9.0)
[2022-04-27 12:20] LABS: Mucus Urine Rare /lpf; Squamous Epithelial Cell Urine Rare /hpf (Few); WBC Urine 21-30 /hpf
--- NOTE | 2022-04-27 12:21 | PM.IMHP ---
H&P: HPI History of Present Illness Date/Time: 04/27/22 12:21 Chief Complaint: Fall with hip pain Narrative: This is a 61-year-old female patient who appears older than stated age. She has a past medical history of HIV and tells me that her viral load is nearly undetectable in that she no longer takes medication for HIV. The patient stated that she was getting today to go to the restroom when she slipped on her comforter and fell landing on her left hip. She stated she was in severe pain. She stated she did not hit her head or lose consciousness. The patient is not on any blood thinners. Patient's white count is 2.3. H&H is 10.8 and 33.3. Potassium is 3.2. Creatinine is 1.4 which appears to be her baseline. She has WBCs in her urine but no leukocyte esterase. Influenza A/B and COVID are negative. Head CT was read as normal aging brain. Chronic sinusitis. Hip and pelvis x-ray was read as displaced subcapital fracture of left femoral neck. Mild osteo arthritis the hips. Chest x-ray was read as no acute cardiopulmonary disease. Orthopedic has been consulted. The patient was given Tylenol, Dilaudid and Zofran. The patient is being admitted to inpatient status on the date of service of 04/27/2022. Review of Systems Review of Systems: See HPI All systems reviewed & are unremarkable except as noted in HPI and below Constitutional: Constitutional: Reports as per HPI and Reports no additional constitutional complaints Eyes: Eyes: Reports as per HPI and Reports no additional eye complaints ENT: Reports system reviewed and no additional complaints, except as documented and Reports Normal hearing present Cardiovascular: Cardiovascular: Reports no additional cardiovascular complaints Respiratory: Respiratory: Reports no additional respiratory complaints and Reports no additional respiratory complaints Gastrointestinal: Gastrointestinal: Reports as per HPI and Reports no additional gastrointestinal complaints Musculoskeletal: Musculoskeletal: Reports no additional musculoskeletal complaints Integumentary/Breasts: Skin/Breast: Reports system reviewed and no additional complaints, except as docu and Reports as per HPI Neurologic: Reports system reviewed and no additional complaints, except as documented, Reports as per HPI and Reports Normal hearing present Psychiatric: Psychiatric: Reports no additional psychiatric complaints and Reports as per HPI Endocrine: Endocrine: Reports no additional endocrine complaints Hematologic/Lymphatic: Hematologic/Lymphatic: Reports no additional hematologic/lymphatic complaints Allergic/Immunologic: Allergic/Immunologic: Reports no additional allergic/immunologic complaints PMFSH Past Medical History Medical History (Updated 04/27/22 @ 15:45 by Lisa Mckeon NP) Anemia Anxiety Arthritis Chronic kidney disease, stage 3 Baseline creatinine ranges between 1.1 and 1.40. Depression Hepatitis C Human immunodeficiency virus Hypertension Hypothyroidism Migraine headache Nephrolithiasis Seizure X2. Surgical History Surgical History History of appendectomy History of bilateral knee replacement History of cholecystectomy History of hysterectomy Family History Family History Father Cerebrovascular accident Acute myocardial infarction Mother Cerebrovascular accident Acute myocardial infarction Mother No problems noted. Social History Social History (Updated 04/27/22 @ 15:05 by Lisa Mckeon NP) Social History: The patient lives in a townhouse in [place]. She is not currently working. She has 2 grown children, a son and a daughter, but they do not keep in touch very often. No alcohol, tobacco, or illicit substance use. At this time she does not designate a surrogate decision maker. Code status: Full code Smoking status: Never smoker Tania
[2022-04-27] MEDS: LACTATED RINGERS 1,000 ML 100 ML IV CONT (13:46)
[2022-04-27] MEDS: HYDROcodone/acetaminophen (*CRX) 5-325 MG TABLET 1 TAB PO ×2 (13:47→23:31)
[2022-04-27 14:00] VITALS: BP 119/81; PULSE 94; RESP 16; TEMP 36.4; O2SAT 100
--- NOTE | 2022-04-27 14:18 | PM.CNOR ---
Assessment and Plan Assessment and plan (1) Fracture of hip: Code(s): S72.009A - Fracture of unspecified part of neck of unspecified femur, initial encounter for closed fracture Status: Acute Assessment and Plan: Displaced left hip femoral neck fracture. Will benefit from bipolar hemiarthroplasty. Significant fall history. Significant skin excoriations increase risk of postoperative infection. History of UTIs. HIV in remission. History of hep C. We discussed the risks, benefits, and alternatives to surgery. Proceed with left hip bipolar hemiarthroplasty. History of Present Illness HPI Consult date: 04/27/22 Chief complaint: Hip Fx Narrative: Patient complains of acute left hip pain. Fell from standing height. Admitted through the emergency room for definitive management. No previous hip pain. Comfortable at rest. No numbness, tingling, or other associated symptoms. Review of Systems Review of Systems: Denies loss of consciousness. HIV status in remission. A history of hepatitis C. Demonstrates some confusion although pleasant and interactive. Marked excoriations on the upper and lower extremities. Skin changes consistent with keratosis. All systems reviewed & are unremarkable except as noted in HPI and below PMFSH Past Medical History Medical History Anemia Anxiety Arthritis Chronic kidney disease, stage 3 Baseline creatinine ranges between 1.1 and 1.40. Depression Hepatitis C Human immunodeficiency virus Hypertension Hypothyroidism Migraine headache Nephrolithiasis Seizure X2. Surgical History Surgical History History of appendectomy History of bilateral knee replacement History of cholecystectomy History of hysterectomy Family History Family History Father Cerebrovascular accident Acute myocardial infarction Mother Cerebrovascular accident Acute myocardial infarction Mother No problems noted. Social History Social History Social History: The patient lives in a townhouse in [place]. She is not currently working. She has 2 grown children, a son and a daughter, but they do not keep in touch very often. No alcohol, tobacco, or illicit substance use. At this time she does not designate a surrogate decision maker. Code status: Do not resuscitate. Smoking status: Never smoker Alcohol intake: never Substance use type: marijuana Lack of Transportation: YES Lack of Food: Never True Current Housing: I Have Housing Concerned About Future Housing: No Difficulty Paying Gas/Electric Bills: No Difficulty Paying for Meds: No Currently Unemployed: No Education: Associate Degree Difficulty w/ Childcare or Family Care: No Gender identity (if verbalized by the patient): Female Sexual Orientation (if Verbalized by the Patient): . Spiritual care concerns: No Meds Home Medications and Allergies Home Medications Medication Instructions Recorded Confirmed Type acetaminophen 500 mg capsule 1,000 mg PO Q6H PRN Pain (Scale 05/02/20 04/27/22 History Score 1-3) estradiol 1 mg tablet (Estrace) 1 mg PO DAILY 05/02/20 04/27/22 History levothyroxine 150 mcg tablet 150 mcg PO DAILY 05/02/20 04/27/22 History cyclobenzaprine 10 mg tablet 10 mg QPM PRN Muscle Spasm 10/07/20 04/27/22 History Allergies Allergy/AdvReac Type Severity Reaction Status Date / Time latex Allergy Mild Rash, Verified 07/17/21 03:38 VOMITTING Sulfa (Sulfonamide Allergy Mild HIVES, Verified 07/17/21 03:38 Antibiotics) RASH, VOMITTING morphine AdvReac Unknown Nausea and Verified 07/17/21 03:38 Vomiting Vital Signs Vital Signs - 24 hr 04/27/22 05:36 04/27/22 09:55 Temperature 36.7 C 36.2 C L Pulse Rate 94 88 Respir
[2022-04-27 21:10] VITALS: BP 119/89; PULSE 97; RESP 14; TEMP 36.9; O2SAT 100
[2022-04-28 05:42] LABS: Alanine Aminotransferase 10 U/L (6-35); Albumin Level 3.8 g/dL (3.5-5.1); Alkaline Phosphatase 56 U/L (38-126); Anion Gap 5 mmol/L (8-16); Aspartate Amino Transferase 24 U/L (14-36); Bilirubin,Total 0.4 mg/dL (0.2-1.3); Blood Urea Nitrogen 12 mg/dL (7-17); Calcium 7.9 mg/dL (8.4-10.2); Carbon Dioxide 30 mmol/L (22-30); Chloride 105 mmol/L (98-107); Estimated CRCL calculation 41 ml/min; Estimated Glomerular Filt Rate 45; Glucose 83 mg/dL (65-110); Magnesium 1.8 mg/dL (1.6-2.3); Phosphorus 2.7 mg/dL (2.5-4.5); Potassium 3.4 mmol/L (3.4-5.0); Sodium 140 mmol/L (137-145)
[2022-04-28 05:43] LABS: Basophils Percent Auto 0.5 % (0.2-1.2); Eosinophils Absolute Auto 0.1 K/mm3 (0-0.3); Eosinophils Percent Auto 2.4 % (0-4.4); Hematocrit 30.6 % (37.0-47.0); Hemoglobin 9.9 g/dL (12.0-15.0); Immature Granulocyte Absolute 0.01 K/mm3 (0.00-0.031); Immature Granulocyte Percent A 0.5 % (0-0.5); Immature Platelet Fraction Pct 5.3 % (0.9-11.2); Lymphocytes Absolute Auto 0.39 K/mm3 (0.9-3.2); Lymphocytes Percent Auto 18.7 % (18.3-44.2); Mean Corpuscular HGB Conc 32.4 g/dl (32-36); Mean Corpuscular Volume 89.7 fl (80-100); Monocytes Absolute Auto 0.3 K/mm3 (0.1-0.6); Monocytes Percent Auto 12.4 % (2.6-8.5); Neutrophils Absolute Auto 1.4 K/mm3 (1.3-6.7); Neutrophils Percent Auto 65.5 % (45.5-73.1); Platelet Count Result 133 k/mm3 (150-375); Red Blood Count 3.41 M/mm3 (4.2-5.4); White Blood Count 2.1 K/mm3 (4.5-10.0)
[2022-04-28 05:46] LABS: Lactic Acid Reflex 0.9 mmol/L (0.7-2.0)
[2022-04-28 06:19] LABS: Thyroid Stimulating Hormone Reflex > 100.000 uIU/mL (0.465-4.68)
[2022-04-28] MEDS: LEVOTHYROXINE SODIUM 150 MCG TABLET PO (06:37)
[2022-04-28] MEDS: LACTATED RINGERS 1,000 ML 100 ML IV CONT ×2 (06:37→17:37)
[2022-04-28] MEDS: HYDROcodone/acetaminophen (*CRX) 5-325 MG TABLET 1 TAB PO ×3 (06:39→23:08)
[2022-04-28 07:10] LABS: Free T4 Free Thyroxine Reflex 0.12 ng/dL (0.78-2.19)
[2022-04-28 08:06] LABS: Rapid Plasma Reagin Non-Reactive (NonReactive)
[2022-04-28] MEDS: estradioL 1 MG TABLET PO (09:13)
[2022-04-28] MEDS: POTASSIUM CHLORIDE 20 MEQ PACKET (FOR LIQUID) PO (09:14)
[2022-04-28 10:51] VITALS: BP 86/54; PULSE 104
--- NOTE | 2022-04-28 11:00 | PM.IMPN ---
Progress Note: A&P Assessment and Plan (1) Fracture of hip: Code(s): S72.009A - Fracture of unspecified part of neck of unspecified femur, initial encounter for closed fracture Status: Acute Assessment and Plan: Hip and pelvis xray shows displaced subcapital fracture of the left femoral neck Ortho consulted Surgical repair scheduled for 04/28/22 NPO after midnight for surgery tomorrow [place], Dilaudid, and Tylenol ordered PRN for pain Zofran for anti-emetics ortho to manage post op care DVT per ortho post op (2) Human immunodeficiency virus: Code(s): B20 - Human immunodeficiency virus [HIV] disease Status: Acute Assessment and Plan: Chronic illness Not on any current treatment states control get labs CD4 and viral load (3) Depression: Code(s): F32.9 - Major depressive disorder, single episode, unspecified Status: Acute Assessment and Plan: Not on any current medications Trend mood Seems stable at this time (4) Hypothyroidism: Code(s): E03.9 - Hypothyroidism, unspecified Status: Chronic Assessment and Plan: TSH >100.00, T4 0.12 Currently on 150mcg of levothyroxine Will probably need to be increased, however check compliance (5) Anemia: Code(s): D64.9 - Anemia, unspecified Status: Chronic Assessment and Plan: H&H is 10.8 and 33.3 upon admission Currently 9.9/30.6 Anemia labs in the am Supplement as indicated Could be related to her chronic kidney disease, or iron deficiency Will also have a component of acute blood loss post surgical intervention Continue to trend labs Transfuse as if Hgb <7.0 (6) Chronic kidney disease, stage 3: Code(s): N18.30 - Chronic kidney disease, stage 3 unspecified Status: Acute Assessment and Plan: BUN/Cr 12/.20 Baseline creatinine is 1.1-1.5 Continue to trend labs Within baseline Avoid nephrotoxic medications Plan Patient has multiple circular rash all over her body that is brownish red was some scabbed areas. Check RPR and blood cultures. Wound care consult was greatly be appreciated. Time Spent With Patient Time with patient: Greater than 35 minutes Subjective Date/time seen: 04/28/22 11:00 Interval history: 04/28/22 11:00 Patient seems to be doing okay. She does complains of a bunch of pain. She does seem to be little bit confused. She does deny any chest pain, shortness a breath, nausea or vomiting. She does state that she does have pain which she claims it to be an 12/04. 04/27/22? 12:21 This is a 61-year-old female patient who appears older than stated age.? She has a past medical history of HIV and tells me that her viral load is nearly undetectable in that she no longer takes medication for HIV.? The patient stated that she was getting today to go to the restroom when she slipped on her comforter and fell landing on her left hip.? She stated she was in severe pain.? She stated she did not hit her head or lose consciousness.? The patient is not on any blood thinners.? Patient's white count is 2.3.? H&H is 10.8 and 33.3.? Potassium is 3.2.? Creatinine is 1.4 which appears to be her baseline.? She has WBCs in her urine but no leukocyte esterase.? Influenza A/B and COVID are negative.? Head CT was read as normal aging brain.? Chronic sinusitis.? Hip and pelvis x-ray was read as displaced subcapital fracture of left femoral neck.? Mild osteo arthritis the hips.? Chest x-ray was read as no acute cardiopulmonary disease.? Orthopedic has been consulted.? The patient was given Tylenol, Dilaudid and Zofran.? The patient is being admitted to inpatient status on the date of service of 04/27/2022. Review of Systems Review of Systems: All systems reviewed & are unremarkable except as noted in HPI and below Exam Narrative: General: mal-nourished, chronical
--- NOTE | 2022-04-28 11:00 | P.PNIM_ITS ---
Progress Note: A&P Assessment and Plan (1) Fracture of hip: Code(s): S72.009A - Fracture of unspecified part of neck of unspecified femur, initial encounter for closed fracture Status: Acute Assessment and Plan: * Hip and pelvis xray shows displaced subcapital fracture of the left femoral neck * Ortho consulted * Surgical repair scheduled for 04/28/22 * NPO after midnight for surgery tomorrow * [place], Dilaudid, and Tylenol ordered PRN for pain * Zofran for anti-emetics * ortho to manage post op care * DVT per ortho post op (2) Human immunodeficiency virus: Code(s): B20 - Human immunodeficiency virus [HIV] disease Status: Acute Assessment and Plan: * Chronic illness * Not on any current treatment * states control * get labs CD4 and viral load (3) Depression: Code(s): F32.9 - Major depressive disorder, single episode, unspecified Status: Acute Assessment and Plan: * Not on any current medications * Trend mood * Seems stable at this time (4) Hypothyroidism: Code(s): E03.9 - Hypothyroidism, unspecified Status: Chronic Assessment and Plan: * TSH >100.00, T4 0.12 * Currently on 150mcg of levothyroxine * Will probably need to be increased, however check compliance (5) Anemia: Code(s): D64.9 - Anemia, unspecified Status: Chronic Assessment and Plan: * H&H is 10.8 and 33.3 upon admission * Currently 9.9/30.6 * Anemia labs in the am * Supplement as indicated * Could be related to her chronic kidney disease, or iron deficiency * Will also have a component of acute blood loss post surgical intervention * Continue to trend labs * Transfuse as if Hgb <7.0 (6) Chronic kidney disease, stage 3: Code(s): N18.30 - Chronic kidney disease, stage 3 unspecified Status: Acute Assessment and Plan: * BUN/Cr 03/27.20 * Baseline creatinine is 1.1-1.5 * Continue to trend labs * Within baseline * Avoid nephrotoxic medications Plan Patient has multiple circular rash all over her body that is brownish red was some scabbed areas. Check RPR and blood cultures. Wound care consult was greatly be appreciated. Time Spent With Patient Time with patient: Greater than 35 minutes Subjective Date/time seen: 04/28/22 11:00 Interval history: 04/28/22 11:00 Patient seems to be doing okay. She does complains of a bunch of pain. She does seem to be little bit confused. She does deny any chest pain, shortness a breath, nausea or vomiting. She does state that she does have pain which she claims it to be an 12/04. 04/27/22? 12:21 This is a 61-year-old female patient who appears older than stated age.? She has a past medical history of HIV and tells me that her viral load is nearly undetectable in that she no longer takes medication for HIV.? The patient stated that she was getting today to go to the restroom when she slipped on her comforter and fell landing on her left hip.? She stated she was in severe pain.? She stated she did not hit her head or lose consciousness.? The patient is not on any blood thinners.? Patient's white count is 2.3.? H&H is 10.8 and 33.3.? Potassium is 3.2.? Creatinine is 1.4 which appears to be her baseline.? She has WBCs in her urine but no leukocyte esterase.? Influenza A/B and COVID are negative.? Head CT was read as normal
[2022-04-28] MEDS: SODIUM CHLORIDE 0.9% IV 500 ML 999 ML IV CONT (11:30)
[2022-04-28 12:10] VITALS: BP 111/78
[2022-04-28] MEDS: HYDROmorphone HCL INJ (*CRX) 1 MG/ML SYR 0.5 MG IV PUSH (12:26)
--- NOTE | 2022-04-28 12:42 | PM.PNORT ---
Progress Note: A&P Assessment and Plan (1) Fracture of hip: Code(s): S72.009A - Fracture of unspecified part of neck of unspecified femur, initial encounter for closed fracture Status: Acute Assessment and Plan: Displaced left hip femoral neck fracture.? Will benefit from bipolar hemiarthroplasty.? Significant fall history.? Significant skin excoriations increase risk of postoperative infection.? History of UTIs.? HIV in remission.? History of hep C. Dr. Macario and the patient discussed the risks, benefits, and alternatives to surgery yesterday. Answered all questions today. Patient states she is afraid about surgery but knows that it needs to be done. Proceed with left hip bipolar hemiarthroplasty. Possible surgery tomorrow depending on OR schedule. NPO at midnight. Subjective Subjective Date/Time Seen: 04/28/22 12:42 Interval history: Patient resting comfortably in bed. Patient states she is very scared about surgery but understands that it needs to be done. She states she is not very hungry. Pain is manageable at rest. Pain with motion. Patient does have some open and scabbed lesions all over her body. Patient states she picks her skin a lot. No other complaints. Review of Systems Review of Systems: All systems reviewed & are unremarkable except as noted in HPI and below Exam Narrative: Lower extremity shortened and externally rotated. Const: General: no acute distress Eyes: General: appearance normal, both eyes and all related structures Resp: Effort & Inspection: normal respiratory effort GI: GI Palp: Yes Soft to palpation and No Guarding due to palpation present (GI) Urinary Catheter: Urinary Catheter: patent and draining and urine clear Neuro: Speech: normal speech Other: Wiggles toes well. Capillary refill brisk. Distal light touch sensation intact. Dorsalis pedis pulse palpable. Extrem: Other: No edema. Objective Data Vital Signs Vital Signs: Vital Signs - 24 hr 04/27/22 14:00 04/27/22 20:00 04/27/22 21:10 Temperature 97.5 F L 98.5 F Pulse Rate 94 97 Respiratory Rate 16 14 Blood Pressure 119/81 119/89 Pulse Oximetry 100 100 Oxygen Delivery Room Air 04/28/22 10:51 04/28/22 12:10 Temperature Pulse Rate 104 H Respiratory Rate Blood Pressure 86/54 L 111/78 Pulse Oximetry Oxygen Delivery Intake/Output Intake/Output: Intake & Output 04/25/22 04/26/22 04/27/22 04/28/22 23:59 23:59 23:59 23:59 Intake Total 1460 240 Output Total 525 Balance 935 240 Meds/Results Medications: Active Medications Generic Name Dose Route Start Last Admin Trade Name Freq PRN Reason Stop Dose Admin Hydrocodone Bitart/Acetaminophen 1 tab 04/27/22 08:43 04/28/22 06:39 Hydrocodone/Acetaminophen (*Crx) 5-325 Mg Tablet PO 1 tab Q4H PRN Administration Pain Rated 4-6 Estradiol 1 mg 04/28/22 09:00 04/28/22 09:13 Estradiol 1 Mg Tablet PO 1 mg DAILY SHAKIRA Administration Fentanyl Citrate 50 mcg 04/27/22 08:43 Fentanyl Citrate Inj (*Crx) 100 Mcg/2 Ml Vial IV PUSH Q2H PRN Pain Rated 7-10 Lactated Ringer's 1,000 mls @ 100 mls/hr 04/27/22 08:45 04/28/22 06:42 Lr - Lactated Ringers Iv IV CONT Not Given .Q10H SHAKIRA Levothyroxine Sodium 150 mcg 04/28/22 06:30 04/28/22 06:37 Levothyroxine Sodium 150 Mcg Tablet PO 150 mcg DAILY@0630 SHAKIRA Administration Ondansetron HCl 4 mg 04/27/22 08:43 Ondansetron Inj 4 Mg/2 Ml Vial IV PUSH Q4H PRN Nausea Potassium Chloride 20 meq 04/28/22 09:00 04/28/22 09:14 Potassium Chloride 20 Meq Packet (For Liquid) PO 20 meq DAILY SHAKIRA Administration Radiology Results: ITS Impressions Head CT 04/27/22 07:25 IMPRESSION: 1. Normal aging brain. 2. Chronic sinusitis. Hip/Pelvis X-Ray 04/27/22 07:48 IMPRESSION: 1. Displaced subcapital fracture of left femoral neck. 2. Mild osteoarthritis of the hips. Chest X-Ray 04/27/22
[2022-04-28 15:15] VITALS: BP 100/73; PULSE 106; RESP 16; TEMP 36.6; O2SAT 97
[2022-04-28 17:46] VITALS: BP 130/80
[2022-04-28 20:36] VITALS: BP 98/68; PULSE 100; RESP 76; TEMP 36.4; O2SAT 97
[2022-04-29] VITALS (13 sets, daily range): BP systolic 93–144; BP diastolic 63–90; PULSE 84–111; RESP 14–20; TEMP 36.4–37.5; O2SAT 92–100
[2022-04-29] MEDS: fentaNYL CITRATE INJ (*CRX) 100 MCG/2 ML VIAL 50 MCG IV PUSH (05:15)
[2022-04-29] MEDS: LACTATED RINGERS 1,000 ML 100 ML IV CONT (05:17)
[2022-04-29 05:21] LABS: Basophils Percent Auto 0.4 % (0.2-1.2); Eosinophils Absolute Auto 0.1 K/mm3 (0-0.3); Eosinophils Percent Auto 2.9 % (0-4.4); Hematocrit 31.1 % (37.0-47.0); Hemoglobin 9.8 g/dL (12.0-15.0); Immature Granulocyte Absolute 0.01 K/mm3 (0.00-0.031); Immature Granulocyte Percent A 0.4 % (0-0.5); Lymphocytes Absolute Auto 0.59 K/mm3 (0.9-3.2); Lymphocytes Percent Auto 21.4 % (18.3-44.2); Mean Corpuscular HGB Conc 31.5 g/dl (32-36); Mean Corpuscular Hemoglobin 28.2 pg (26-34); Mean Corpuscular Volume 89.4 fl (80-100); Mean Platelet Volume 10.4 fl (7.4-10.4); Monocytes Absolute Auto 0.4 K/mm3 (0.1-0.6); Monocytes Percent Auto 13.4 % (2.6-8.5); Neutrophils Absolute Auto 1.7 K/mm3 (1.3-6.7); Neutrophils Percent Auto 61.5 % (45.5-73.1); Platelet Count Result 115 k/mm3 (150-375); Red Blood Count 3.48 M/mm3 (4.2-5.4); White Blood Count 2.8 K/mm3 (4.5-10.0)
[2022-04-29 05:29] LABS: Alanine Aminotransferase 10 U/L (6-35); Albumin Level 3.6 g/dL (3.5-5.1); Alkaline Phosphatase 52 U/L (38-126); Anion Gap 5 mmol/L (8-16); Aspartate Amino Transferase 22 U/L (14-36); Bilirubin,Total 0.4 mg/dL (0.2-1.3); Blood Urea Nitrogen 9 mg/dL (7-17); Calcium 7.8 mg/dL (8.4-10.2); Carbon Dioxide 27 mmol/L (22-30); Chloride 101 mmol/L (98-107); Estimated CRCL calculation 45 ml/min; Estimated Glomerular Filt Rate 50; Glucose 76 mg/dL (65-110); Magnesium 1.7 mg/dL (1.6-2.3); Potassium 3.3 mmol/L (3.4-5.0); Sodium 133 mmol/L (137-145)
--- NOTE | 2022-04-29 08:15 | P.PNIM_ITS ---
Progress Note: A&P Assessment and Plan (1) Fracture of hip: Code(s): S72.009A - Fracture of unspecified part of neck of unspecified femur, initial encounter for closed fracture Status: Acute Assessment and Plan: * Hip and pelvis xray shows displaced subcapital fracture of the left femoral neck * Ortho consulted * Surgical repair scheduled for 04/29/22 * NPO after midnight for surgery tomorrow * [place], Dilaudid, and Tylenol ordered PRN for pain * Zofran for anti-emetics * ortho to manage post op care * DVT per ortho post op (2) Anemia: Code(s): D64.9 - Anemia, unspecified Status: Chronic Assessment and Plan: * H&H is 10.8 and 33.3 upon admission * Currently 9.8/31.1 * Anemia labs in the am * Supplement as indicated * Could be related to her chronic kidney disease, or iron deficiency * Will also have a component of acute blood loss post surgical intervention * Continue to trend labs * Transfuse as if Hgb <7.0 (3) Electrolyte abnormality: Code(s): E87.8 - Other disorders of electrolyte and fluid balance, not elsewhere classified Status: Acute Assessment and Plan: * Mag 1.7, K 3.3 * 2gm of mag for replacement * 40mcg PO once for K * Continue to trend labs * supplement as indicated (4) Human immunodeficiency virus: Code(s): B20 - Human immunodeficiency virus [HIV] disease Status: Acute Assessment and Plan: * Chronic illness * Not on any current treatment * states control * get labs CD4 and viral load, send outs (5) Depression: Code(s): F32.9 - Major depressive disorder, single episode, unspecified Status: Acute Assessment and Plan: * Not on any current medications * Trend mood * Seems stable at this time (6) Hypothyroidism: Code(s): E03.9 - Hypothyroidism, unspecified Status: Chronic Assessment and Plan: * TSH >100.00, T4 0.12 * Currently on 150mcg of levothyroxine * Will probably need to be increased, however check compliance (7) Chronic kidney disease, stage 3: Code(s): N18.30 - Chronic kidney disease, stage 3 unspecified Status: Acute Assessment and Plan: * BUN/Cr /.10 * Baseline creatinine is 1.1-1.5 * Continue to trend labs * Within baseline * Avoid nephrotoxic medications Plan Patient has multiple circular rash all over her body that is brownish red was some scabbed areas. Check RPR and blood cultures. Wound care consult was greatly be appreciated. Time Spent With Patient Time with patient: Greater than 35 minutes Subjective Date/time seen: 04/29/22814 Interval history: 04/29/22814 Patient stated that she is not doing very well today. It is mostly related to her pain. She stated that her pain is about a 12/10. She denies any chest pain, shortness a breath, diarrhea constipation. She did state that she was going to nauseated with no vomiting. She also has a very poor appetite at this time. Surgical procedures are scheduled for today. She is going to nervous about it however reassured her that it will be okay. 04/28/22 11:00 Patient seems to be doing okay. She does complains of a bunch of pain. She does seem to be little bit confused. She does deny any chest pain, shortness a breath, nausea or vomiting
--- NOTE | 2022-04-29 08:15 | PM.IMPN ---
Progress Note: A&P Assessment and Plan (1) Fracture of hip: Code(s): S72.009A - Fracture of unspecified part of neck of unspecified femur, initial encounter for closed fracture Status: Acute Assessment and Plan: Hip and pelvis xray shows displaced subcapital fracture of the left femoral neck Ortho consulted Surgical repair scheduled for 04/29/22 NPO after midnight for surgery tomorrow [place], Dilaudid, and Tylenol ordered PRN for pain Zofran for anti-emetics ortho to manage post op care DVT per ortho post op (2) Anemia: Code(s): D64.9 - Anemia, unspecified Status: Chronic Assessment and Plan: H&H is 10.8 and 33.3 upon admission Currently 9.8/31.1 Anemia labs in the am Supplement as indicated Could be related to her chronic kidney disease, or iron deficiency Will also have a component of acute blood loss post surgical intervention Continue to trend labs Transfuse as if Hgb <7.0 (3) Electrolyte abnormality: Code(s): E87.8 - Other disorders of electrolyte and fluid balance, not elsewhere classified Status: Acute Assessment and Plan: Mag 1.7, K 3.3 2gm of mag for replacement 40mcg PO once for K Continue to trend labs supplement as indicated (4) Human immunodeficiency virus: Code(s): B20 - Human immunodeficiency virus [HIV] disease Status: Acute Assessment and Plan: Chronic illness Not on any current treatment states control get labs CD4 and viral load, send outs (5) Depression: Code(s): F32.9 - Major depressive disorder, single episode, unspecified Status: Acute Assessment and Plan: Not on any current medications Trend mood Seems stable at this time (6) Hypothyroidism: Code(s): E03.9 - Hypothyroidism, unspecified Status: Chronic Assessment and Plan: TSH >100.00, T4 0.12 Currently on 150mcg of levothyroxine Will probably need to be increased, however check compliance (7) Chronic kidney disease, stage 3: Code(s): N18.30 - Chronic kidney disease, stage 3 unspecified Status: Acute Assessment and Plan: BUN/Cr 9/1.10 Baseline creatinine is 1.1-1.5 Continue to trend labs Within baseline Avoid nephrotoxic medications Plan Patient has multiple circular rash all over her body that is brownish red was some scabbed areas. Check RPR and blood cultures. Wound care consult was greatly be appreciated. Time Spent With Patient Time with patient: Greater than 35 minutes Subjective Date/time seen: 04/29/22814 Interval history: 04/29/22814 Patient stated that she is not doing very well today. It is mostly related to her pain. She stated that her pain is about a 12/10. She denies any chest pain, shortness a breath, diarrhea constipation. She did state that she was going to nauseated with no vomiting. She also has a very poor appetite at this time. Surgical procedures are scheduled for today. She is going to nervous about it however reassured her that it will be okay. 04/28/22 11:00 Patient seems to be doing okay. She does complains of a bunch of pain. She does seem to be little bit confused. She does deny any chest pain, shortness a breath, nausea or vomiting. She does state that she does have pain which she claims it to be an 8/10. 04/27/22? 12:21 This is a 61-year-old female patient who appears older than stated age.? She has a past medical history of HIV and tells me that her viral load is nearly undetectable in that she no longer takes medication for HIV.? The patient stated that she was getting today to go to the restroom when she slipped on her comforter and fell landing on her left hip.? She stated she was in severe pain.? She stated she did not hit her head or lose consciousness.? The patient is not on any blood thinners.? Patient's white count i
[2022-04-29] MEDS: ONDANSETRON INJ 4 MG/2 ML VIAL IV PUSH (08:36)
[2022-04-29] MEDS: MAGNESIUM SULF 2 GM/WATER 50ML 2 GM/50 ML BAG IVPB (08:40)
[2022-04-29 08:46] LABS: Transferrin 138 mg/dL (206-381)
[2022-04-29] MEDS: HYDROmorphone HCL INJ (*CRX) 1 MG/ML SYR 0.5 MG IV PUSH ×3 (09:12→23:09)
[2022-04-29 09:24] LABS: Folic Acid 13.9 ng/mL (2.76->20)
--- NOTE | 2022-04-29 09:42 | WPDHPUPDATE1 ---
History and Physical Update Update Date/Time: 04/29/22 09:42 History and Physical has been reviewed, including an updated exam of the patient. There are NO changes in the patient's condition. Risks, benefits, and alternatives have been discussed and questions answered. Patient agrees to proceed with procedure.
[2022-04-29 09:53] LABS: Iron 27 ug/dL (37-170)
[2022-04-29 10:02] LABS: Percent Iron Saturation 13 % (20-50)
--- NOTE | 2022-04-29 10:15 | WPDANESEPPF ---
Anes - Initial Pre Proc Eval Procedure: Operation Date: 04/29/22 13:30 Proposed Procedures p Left Bipolar - Pelon Macario MD Date/Time: 04/29/22 10:15 Pre Op Diagnosis: Hip Fx Patient Data Age: 61 Gender: F Height: 1.78 m Weight: 60.9 kg Last Vital Signs Temp 36.4 C 04/29/22 03:55 Pulse 100 04/29/22 03:55 Resp 18 04/29/22 03:55 BP 130/86 04/29/22 03:55 Pulse Ox 97 04/29/22 03:55 O2 Del Method Room Air 04/28/22 19:40 Allergies Allergy/AdvReac Type Severity Reaction Status Date / Time latex Allergy Mild Rash, Verified 07/17/21 03:38 VOMITTING Sulfa (Sulfonamide Allergy Mild HIVES, Verified 07/17/21 03:38 Antibiotics) RASH, VOMITTING morphine AdvReac Unknown Nausea and Verified 07/17/21 03:38 Vomiting Home Medications Medication Instructions Recorded Confirmed Type acetaminophen 500 mg capsule 1,000 mg PO Q6H PRN Pain (Scale 05/02/20 04/27/22 History Score 1-3) estradiol 1 mg tablet (Estrace) 1 mg PO DAILY 05/02/20 04/27/22 History levothyroxine 150 mcg tablet 150 mcg PO DAILY 05/02/20 04/27/22 History cyclobenzaprine 10 mg tablet 10 mg QPM PRN Muscle Spasm 10/07/20 04/27/22 History Laboratory Tests 04/29/22 04/29/22 04/29/22 04:50 04:53 04:53 WBC 2.8 K/mm3 L K/mm3 (4.5-10.0) RBC 3.48 M/mm3 L M/mm3 (4.2-5.4) Hgb 9.8 g/dL L g/dL (12.0-15.0) Hct 31.1 % L % (37.0-47.0) MCV 89.4 fl fl (80-100) MCH 28.2 pg pg (26-34) MCHC 31.5 g/dl L g/dl (32-36) RDW 15.0 % H % (11.5-14.5) Plt Count 115 k/mm3 L k/mm3 (150-375) MPV 10.4 fl fl (7.4-10.4) Immature Gran % (Auto) 0.4 % % (0-0.5) Neut % (Auto) 61.5 % % (45.5-73.1) Lymph % (Auto) 21.4 % % (18.3-44.2) [place] % (Auto) 13.4 % H % (2.6-8.5) Eos % (Auto) 2.9 % % (0-4.4) Baso % (Auto) 0.4 % % (0.2-1.2) Lymph # (Auto) 0.59 K/mm3 L K/mm3 (0.9-3.2) [place] # (Auto) 0.4 K/mm3 K/mm3 (0.1-0.6) Eos # (Auto) 0.1 K/mm3 K/mm3 (0-0.3) Baso # (Auto) 0.0 K/mm3 K/mm3 (0.0-0.1) Abs Immat Gran (auto) 0.01 K/mm3 K/mm3 (0.00-0.031) Absolute Neuts (auto) 1.7 K/mm3 K/mm3 (1.3-6.7) Absolute Nucleated RBC 0.0 K/mm3 K/mm3 (0.0-0.012) Nucleated RBC % 0.0 % % (0.0-0.2) % Immature Plt Fraction 5.0 % % (0.9-11.2) Sodium 133 mmol/L L mmol/L (137-145) Potassium 3.3 mmol/L L mmol/L (3.4-5.0) Chloride 101 mmol/L mmol/L (98-107) Carbon Dioxide 27 mmol/L mmol/L (22-30) Anion Gap 5 mmol/L L mmol/L (8-16) BUN 9 mg/dL mg/dL (7-17) Creatinine 1.10 mg/dL H mg/dL (0.7-1.0) Estim Creat Clear Calc 45 ml/min ml/min Estimated GFR 50 L (59 - ) Glucose 76 mg/dL mg/dL (65-110) Calcium 7.8 mg/dL L mg/dL (8.4-10.2) Magnesium 1.7 mg/dL mg/dL (1.6-2.3) Iron TIBC % Saturation Transferrin 138 mg/dL L mg/dL (206-381) Ferritin Total Bilirubin 0.4 mg/dL mg/dL (0.2-1.3) AST 22 U/L U/L (14-36) ALT 10 U/L U/L (6-35) Alkaline Phosphatase 52 U/L U/L (38-126) Total Protein 7.0 g/dL g/dL (6.3-8.2) Albumin 3.6 g/dL g/dL (3.5-5.1) Vitamin B12 178.0 pg/mL L pg/mL (239-931) Folate 13.9 ng/mL ng/mL (2.76->20) 04/29/22 08:59 WBC RBC Hgb Hct MCV MCH MCHC RDW Plt Count MPV Immature Gran % (Auto) Neut % (Auto) Lymph % (Auto) [place] % (Auto) Eos % (Auto) Baso % (Auto) Lymph # (Auto) [place] # (Auto) Eos # (Auto) Baso # (Auto) Abs Immat Gran (auto) Absolute Neut
[2022-04-29] MEDS: LACTATED RINGERS 1,000 ML 30 ML IV CONT ×2 (12:25→15:13)
[2022-04-29] MEDS: TRANEXAMIC ACID 1,000MG/ISO100 1,000 MG/100 ML BAG 200 MG IVPB (13:36)
[2022-04-29] MEDS: ceFAZolin 2 GM/D5W 50 ML 2 GM/50 ML BAG IVPB ×2 (13:36→20:34)
--- NOTE | 2022-04-29 14:52 | SUR.OPER ---
total u/a output 50ml remains bree and clear via zuleta
--- NOTE | 2022-04-29 15:21 | W.PM.PROC2 ---
Procedure Note - Detailed Date of Procedure 04/29/22 Pre-op Diagnosis Displaced left hip femoral neck fracture. Post-op Diagnosis Same Procedure Performed Left hip bipolar hemiarthroplasty. Surgeon Pelon Macario MD Junior Database Administrator Freya Morales PA-C Anesthesia General Findings Poor bone and soft tissue quality. Description of Procedure A general anesthetic was administered. The patient was carefully placed in the lateral decubitus position on the peg board positioner. An axillary roll was placed. The hip was prepped and draped in the usual sterile fashion. A minimally invasive optimized posterior approach to the hip was performed. An L shaped capsulotomy was created along the upper border of the piriformis. The short external rotators were tagged with number 2 high strength suture for later repair. The labrum was preserved. The femoral neck cut was performed. The femoral head was removed and sized. The acetabular floor was cleared of debris and loose tissue. The femur was sequentially reamed and broached. Trial was assessed for leg length and stability. The real component was impacted into position, trialed again, and the final head and bipolar component were assembled. The hip was reduced after copious irrigation. The short external rotators and capsule were repaired through drill holes in the posterior trochanter. The wound was closed in layers with 1 vicryl, 2,0, and 2-0 running barbed suture. Adhesive tapes were placed on the skin, followed by a sterile gauze dressing. The patient was extubated and brought to the recovery room. Implants [place] bipolar hip component 48 mm and 28 mm +0 Ceramic inner head. Size 7 high offset Accolade 2 femoral stem. Estimated Blood Loss -150.0 Urine Output -350.0 Drains No Pathology None sent Complications No immediate complications Condition Stable Disposition PACU [facility] Billing Surgery - Charge Forward: Surgery Billing
[2022-04-29] MEDS: fentaNYL CITRATE INJ (*CRX) 100 MCG/2 ML VIAL 25 MCG IV PUSH ×2 (15:34→15:58)
[2022-04-29 16:04] LABS: Hematocrit 31.6 % (37.0-47.0)
[2022-04-29] MEDS: SODIUM CHLORIDE 0.9% IV 1,000 ML 125 ML IV CONT (16:54)
[2022-04-29] MEDS: POTASSIUM CHLORIDE 20 MEQ PACKET (FOR LIQUID) PO (16:55)
[2022-04-29] MEDS: estradioL 1 MG TABLET PO (16:55)
[2022-04-29] MEDS: SENNA/DOCUSATE SODIUM TABLET 2 TAB PO (16:57)
[2022-04-29] MEDS: ACETAMINOPHEN 500 MG TABLET 1000 MG PO (17:01)
--- NOTE | 2022-04-29 19:45 | PC.NURSE ---
04/29/22 0830am Wasted dose of fentynal due to order change in pain medications. Oseas stated he is discontinuing fentynal.
[2022-04-29] MEDS: FAMOTIDINE 20 MG TABLET PO (20:34)
[2022-04-30 03:37] VITALS: BP 125/96; PULSE 96; RESP 18; TEMP 36.3; O2SAT 100
[2022-04-30] MEDS: HYDROmorphone HCL INJ (*CRX) 1 MG/ML SYR 0.5 MG IV PUSH ×3 (03:37→21:46)
[2022-04-30 05:50] LABS: Basophils Percent Auto 0.4 % (0.2-1.2); Hematocrit 31.4 % (37.0-47.0); Hemoglobin 9.7 g/dL (12.0-15.0); Immature Granulocyte Absolute 0.02 K/mm3 (0.00-0.031); Immature Granulocyte Percent A 0.4 % (0-0.5); Immature Platelet Fraction Pct 5.5 % (0.9-11.2); Lymphocytes Absolute Auto 0.52 K/mm3 (0.9-3.2); Lymphocytes Percent Auto 10.7 % (18.3-44.2); Mean Corpuscular HGB Conc 30.9 g/dl (32-36); Mean Corpuscular Hemoglobin 28.4 pg (26-34); Mean Corpuscular Volume 92.1 fl (80-100); Mean Platelet Volume 10.7 fl (7.4-10.4); Monocytes Absolute Auto 0.4 K/mm3 (0.1-0.6); Monocytes Percent Auto 8.9 % (2.6-8.5); Neutrophils Absolute Auto 3.9 K/mm3 (1.3-6.7); Neutrophils Percent Auto 79.6 % (45.5-73.1); Platelet Count Result 126 k/mm3 (150-375); Red Blood Count 3.41 M/mm3 (4.2-5.4); Red Cell Distribution Width 14.8 % (11.5-14.5); White Blood Count 4.9 K/mm3 (4.5-10.0)
[2022-04-30] MEDS: LEVOTHYROXINE SODIUM 150 MCG TABLET PO (05:51)
[2022-04-30] MEDS: ceFAZolin 2 GM/D5W 50 ML 2 GM/50 ML BAG IVPB ×2 (05:51→12:56)
[2022-04-30 05:55] LABS: Alanine Aminotransferase 9 U/L (6-35); Albumin Level 3.6 g/dL (3.5-5.1); Alkaline Phosphatase 47 U/L (38-126); Anion Gap 6 mmol/L (8-16); Aspartate Amino Transferase 29 U/L (14-36); Bilirubin,Total 0.5 mg/dL (0.2-1.3); Blood Urea Nitrogen 8 mg/dL (7-17); Calcium 7.7 mg/dL (8.4-10.2); Carbon Dioxide 25 mmol/L (22-30); Chloride 103 mmol/L (98-107); Estimated CRCL calculation 49 ml/min; Estimated Glomerular Filt Rate 56; Glucose 80 mg/dL (65-110); Magnesium 2.3 mg/dL (1.6-2.3); Potassium 4.1 mmol/L (3.4-5.0); Sodium 134 mmol/L (137-145)
--- NOTE | 2022-04-30 07:55 | WPDANESPN ---
Anes - Prog Note Post-Op Date/Time: 04/30/22 07:55 Cardiovascular status: normal Respiratory status: normal Airway patency: baseline Mental status: baseline Post-Op hydration status: normal Vital Signs: Last Vital Signs Temp 36.3 C L 04/30/22 03:37 Pulse 96 04/30/22 03:37 Resp 18 04/30/22 03:37 BP 125/96 H 04/30/22 03:37 Pulse Ox 100 04/30/22 03:37 O2 Del Method Room Air 04/29/22 20:00 O2 Flow Rate 8 04/29/22 15:40 Pain Score (VAS): 06/06 I/O: Intake & Output 04/29/22 04/29/22 04/30/22 15:59 23:59 07:59 Intake Total 150 1320 1450 Output Total 900 2000 550 Balance -750 -680 900 Laboratory Tests 04/30/22 05:14 04/30/22 05:14 04/29/22 04/29/22 04/29/22 04:50 08:59 15:55 WBC RBC Hgb 10.0 L Hct 31.6 L MCV MCH MCHC RDW Plt Count MPV Immature Gran % (Auto) Neut % (Auto) Lymph % (Auto) Real % (Auto) Eos % (Auto) Baso % (Auto) Lymph # (Auto) Real # (Auto) Eos # (Auto) Baso # (Auto) Abs Immat Gran (auto) Absolute Neuts (auto) Absolute Nucleated RBC Nucleated RBC % % Immature Plt Fraction Sodium Potassium Chloride Carbon Dioxide Anion Gap BUN Creatinine Estim Creat Clear Calc Estimated GFR Glucose Calcium Magnesium Iron 27 L TIBC 214 L % Saturation 13 L Transferrin 138 L Ferritin 289.00 H Total Bilirubin AST ALT Alkaline Phosphatase Total Protein Albumin Vitamin B12 178.0 L Folate 13.9 04/30/22 04/30/22 05:14 05:14 WBC 4.9 RBC 3.41 L Hgb 9.7 L Hct 31.4 L MCV 92.1 MCH 28.4 MCHC 30.9 L RDW 14.8 H Plt Count 126 L MPV 10.7 H Immature Gran % (Auto) 0.4 Neut % (Auto) 79.6 H Lymph % (Auto) 10.7 L Real % (Auto) 8.9 H Eos % (Auto) 0.0 Baso % (Auto) 0.4 Lymph # (Auto) 0.52 L Real # (Auto) 0.4 Eos # (Auto) 0.0 Baso # (Auto) 0.0 Abs Immat Gran (auto) 0.02 Absolute Neuts (auto) 3.9 Absolute Nucleated RBC 0.0 Nucleated RBC % 0.0 % Immature Plt Fraction 5.5 Sodium 134 L Potassium 4.1 Chloride 103 Carbon Dioxide 25 Anion Gap 6 L BUN 8 Creatinine 1.00 Estim Creat Clear Calc 49 Estimated GFR 56 L Glucose 80 Calcium 7.7 L Magnesium 2.3 Iron TIBC % Saturation Transferrin Ferritin Total Bilirubin 0.5 AST 29 ALT 9 Alkaline Phosphatase 47 Total Protein 7.0 Albumin 3.6 Vitamin B12 Folate Microbiology 04/27/22 11:25 Clean Catch Midstream Urine Culture - Final Post-procedural complaints: none Patient Feedback: Patient satisfied with anesthetic care.
--- NOTE | 2022-04-30 08:27 | PM.PNORT ---
Progress Note: A&P Assessment and Plan (1) Fracture of hip: Code(s): S72.009A - Fracture of unspecified part of neck of unspecified femur, initial encounter for closed fracture Status: Acute Assessment and Plan: POD #1 Left Bipolar hemiarthroplasty. Patient tolerated procedure well. No complications. Pain manageable with pain medication. No numbness or tingling. Significant fall history.? Significant skin excoriations increase risk of postoperative infection.? History of UTIs.? HIV in remission.? History of hep C. Will extend patient's antibiotic postoperatively. Ortho instructions: D/C to SNF/rehab Follow up in office in 4 weeks. Wound Care: Remove Mepilex dressing at 7 days post op. Remove steristrips at 14 days post op. May shower. No soaking. PT: Weight bearing as tolerated with a walker. DVT prophylaxis: continue Lovenox for 30 days total Antibiotic: Keflex BID for 10 days total. Subjective Subjective Date/Time Seen: 04/30/22 08:27 Interval history: Patient resting comfortably in bed. She states her whole left leg hurts. No numbness or tingling. No other complaints. Review of Systems Review of Systems: Pain left hip and leg with movement. Denied pain elsewhere. All systems reviewed & are unremarkable except as noted in HPI and below Exam Narrative: Normal weight 61 y/o female. Resting comfortably in bed. Wearing compression socks bilaterally. Dressing dry and intact with no drainage. Moderate swelling. No edema. No ecchymosis. No erythema. No hematoma. Range of motion limited due to pain. Calf mildly tender. Thigh mildly tender. No varicosities. Distal pulses palpable. Wiggles toes. Objective Data Vital Signs Vital Signs: Vital Signs - 24 hr 04/29/22 12:30 04/29/22 15:13 04/29/22 15:25 Temperature 99.5 F 99.4 F Pulse Rate 111 H 98 97 Respiratory Rate 20 16 16 Blood Pressure 122/75 116/66 124/82 Pulse Oximetry 100 100 100 Oxygen Delivery Room Air Simple Face Mask Simple Face Mask Oxygen Flow Rate 8 8 04/29/22 15:40 04/29/22 15:45 04/29/22 16:00 Temperature Pulse Rate 88 93 94 Respiratory Rate 14 14 16 Blood Pressure 129/86 124/90 144/89 H Pulse Oximetry 100 94 94 Oxygen Delivery Simple Face Mask Room Air Room Air Oxygen Flow Rate 8 04/29/22 16:15 04/29/22 16:30 04/29/22 16:45 Temperature 97.8 F 97.8 F Pulse Rate 90 100 99 Respiratory Rate 14 16 16 Blood Pressure 109/84 111/74 93/71 L Pulse Oximetry 96 94 93 Oxygen Delivery Room Air Oxygen Flow Rate 04/29/22 17:49 04/29/22 08:30 04/29/22 19:42 Temperature 97.8 F 98 F Pulse Rate 105 H 100 Respiratory Rate 18 18 Blood Pressure 95/63 L 98/68 L Pulse Oximetry 92 100 Oxygen Delivery Room Air Oxygen Flow Rate 04/29/22 20:00 04/29/22 23:01 04/30/22 03:37 Temperature 97.8 F 97.3 F L Pulse Rate 84 96 Respiratory Rate 18 18 Blood Pressure 113/79 125/96 H Pulse Oximetry 99 100 Oxygen Delivery Room Air Oxygen Flow Rate Intake/Output Intake/Output: Intake & Output 04/27/22 04/28/22 04/29/22 04/30/22 23:59 23:59 23:59 23:59 Intake Total 1460 1960 2470 1450 Output Total 107 032 0306 550 Balance 935 1660 -1230 900 Meds/Results Medications: Active Medications Generic Name Dose Route Start Last Admin Trade Name Freq PRN Reason Stop Dose Admin Acetaminophen 1,000 mg 04/30/22 09:00 Acetaminophen 500 Mg Tablet PO TID SHAKIRA Hydrocodone Bitart/Acetaminophen 1 tab 04/27/22 08:43 04/28/22 23:08 Hydrocodone/Acetaminophen (*Crx) 5-325 Mg Tablet PO 1 tab Q4H PRN Administration Pain Rated 4-6 Cyclobenzaprine HCl 10 mg 04/29/22 16:20 Cyclobenzaprine Hcl 10 Mg Tablet PO Q8H PRN Muscle Spasm Enoxaparin Sodium 40 mg 04/30/22 09:00 Enoxaparin 40 Mg/0.4 Ml Syringe SUB-Q DAILY SHAKIRA Estradiol 1 mg 04/28/22 09:00 04/29/22 16:55 Estradiol 1 Mg Tablet PO 1 mg DAILY SHAKIRA Administration Famotidine 20
[2022-04-30] MEDS: ACETAMINOPHEN 500 MG TABLET 1000 MG PO ×3 (09:31→17:03)
[2022-04-30] MEDS: SENNA/DOCUSATE SODIUM TABLET 2 TAB PO ×2 (09:31→17:03)
[2022-04-30] MEDS: ENOXAPARIN 40 MG/0.4 ML SYRINGE SUB-Q (09:32)
[2022-04-30] MEDS: polyethylene glycoL 3350 17 GM POWD.PACK PO (09:33)
[2022-04-30] MEDS: FAMOTIDINE 20 MG TABLET PO ×2 (09:33→20:34)
[2022-04-30 09:46] VITALS: BP 154/90; PULSE 96; RESP 18; TEMP 37.5; O2SAT 97
[2022-04-30 10:00] VITALS: O2SAT 97
[2022-04-30] MEDS: estradioL 1 MG TABLET PO (10:43)
[2022-04-30 14:05] VITALS: BP 100/74; PULSE 100; RESP 18; TEMP 36.5; O2SAT 97
--- NOTE | 2022-04-30 17:31 | PM.IMPN ---
Progress Note: A&P Assessment and Plan (1) Fracture of hip: Code(s): S72.009A - Fracture of unspecified part of neck of unspecified femur, initial encounter for closed fracture Status: Acute Assessment and Plan: Secondary to fall. X-ray revealed displaced subcapital fracture of the left femoral neck. Seen in consultation by Orthopedic surgery. Underwent left hip bipolar hemiarthroplasty on 04/29/2022. Tolerated procedure well. Continue with pain control. Management per Orthopedic surgery. Will continue Lovenox for 30 days for DVT prophylaxis. Continue Keflex b.i.d. for 10 days as she is at higher risk for postoperative infection given multiple skin excoriations, history of HIV and hepatitis-C (2) Anemia: Code(s): D64.9 - Anemia, unspecified Status: Chronic Assessment and Plan: Chronic anemia likely related to CKD. H&H remaining stable postoperatively. Continue to monitor closely (3) Electrolyte abnormality: Code(s): E87.8 - Other disorders of electrolyte and fluid balance, not elsewhere classified Status: Acute Assessment and Plan: Hypomagnesium resolved with supplementation. Hypokalemia resolved with supplementation. Mild hypocalcemia which appears chronic. Will begin Oscal 500 mg b.i.d. (4) Human immunodeficiency virus: Code(s): B20 - Human immunodeficiency virus [HIV] disease Status: Acute Assessment and Plan: Reportedly with undetectable labs. HIV-1 RNA copies are elevated. CD4 pending. She will need to follow-up with Infectious Disease. She is not on any medications (5) Hypothyroidism: Code(s): E03.9 - Hypothyroidism, unspecified Status: Chronic Assessment and Plan: TSH is >100.00 with low free T4. Suspect noncompliance to medication regimen therefore will not make any changes to current dose as patient is asymptomatic. Continue levothyroxine at 150 mcg daily (6) Chronic kidney disease, stage 3: Code(s): N18.30 - Chronic kidney disease, stage 3 unspecified Status: Acute Assessment and Plan: Renal function is consistent with baseline. Subjective Date/time seen: 04/30/22 17:31 Interval history: date of service: 04/30/2022 Patient is seen in follow-up for left hip fracture. Underwent surgical repair on 04/29/2022 and tolerated procedure well. Patient complains of 10/10 hip pain today. She had her Harp removed and initially stated she could not urinate, however was eventually able to void independently and no evidence of urinary retention. Patient reports no bowel movement since surgery. Denies passing flatus. States she has not been able to eat, though denies nausea or vomiting. Denies fever or chills. She was able to get up from bed to the chair today, though this did increase her pain. Review of Systems Review of Systems: All systems reviewed & are unremarkable except as noted in HPI and below Exam Narrative: \General: well-nourished well-appearing 58-year-old female, sitting up in a chair, comfortable, NARD Neuro: awake, alert and oriented x3, speech clear, no focal neuro deficits noted HEENMT: normocephalic, atraumatic, EOMI, sclerae anicteric\ Respiratory: clear to auscultation bilaterally, nonlabored breathing Cardio: regular rate, regular rhythm with S1-S2 Abdomen: nondistended, normoactive bowel sounds, soft, nontender to palpation Extremities: no edema, erythema, or tenderness to palpation, able to wiggle toes bilaterally Skin: no rashes or lesions, warm and dry Psych: appropriate mood and affect, judgment and insight fair Objective Data Vital Signs Vital Signs: Vital Signs - 24 hr 04/29/22 17:49 04/29/22 19:42 04/29/22 20:00 Temperature 97.8 F 98 F Pulse Rate 105 H 100 Respiratory Rate 18 18 Blood Pressure 95/63 L 98/68 L Pulse Oximetry 92 100 Oxygen Delivery Room Air 04/29/22 23:01 04/30/22 03:37 04/30/22 09:46 Temperatu
[2022-04-30 18:57] LABS: HIV 1 RNA PCR 293000 Copies/mL; HIV 1 RNA PCR 5.47 Log cps/mL
[2022-04-30] MEDS: HYDROcodone/acetaminophen (*CRX) 5-325 MG TABLET 1 TAB PO (20:33)
[2022-04-30] MEDS: CEPHALEXIN 500 MG CAPSULE PO (20:34)
[2022-04-30 22:00] VITALS: BP 104/75; PULSE 107; RESP 21; TEMP 36.7; O2SAT 100
[2022-05-01] MEDS: CYCLOBENZAPRINE HCL 10 MG TABLET PO (00:09)
[2022-05-01 02:15] VITALS: BP 100/66; PULSE 95; RESP 20; TEMP 36.6; O2SAT 99
[2022-05-01] MEDS: HYDROcodone/acetaminophen (*CRX) 5-325 MG TABLET 1 TAB PO (05:52)
[2022-05-01 06:00] VITALS: BP 134/94; PULSE 103; RESP 21; TEMP 36.3; O2SAT 100
[2022-05-01] MEDS: LEVOTHYROXINE SODIUM 150 MCG TABLET PO (06:49)
[2022-05-01 07:50] LABS: Hematocrit 26.7 % (37.0-47.0); Hemoglobin 8.6 g/dL (12.0-15.0); Mean Corpuscular HGB Conc 32.2 g/dl (32-36); Mean Corpuscular Hemoglobin 28.7 pg (26-34); Mean Platelet Volume 10.2 fl (7.4-10.4); Platelet Count Result 144 k/mm3 (150-375); Red Cell Distribution Width 14.8 % (11.5-14.5)
[2022-05-01 07:59] LABS: Anion Gap 4 mmol/L (8-16); Blood Urea Nitrogen 12 mg/dL (7-17); Calcium 7.5 mg/dL (8.4-10.2); Carbon Dioxide 30 mmol/L (22-30); Chloride 100 mmol/L (98-107); Estimated CRCL calculation 45 ml/min; Estimated Glomerular Filt Rate 50; Glucose 91 mg/dL (65-110); Potassium 3.5 mmol/L (3.4-5.0); Sodium 134 mmol/L (137-145)
[2022-05-01] MEDS: POTASSIUM CHLORIDE 20 MEQ PACKET (FOR LIQUID) PO (08:22)
[2022-05-01] MEDS: polyethylene glycoL 3350 17 GM POWD.PACK PO (08:22)
[2022-05-01] MEDS: FAMOTIDINE 20 MG TABLET PO (08:22)
[2022-05-01] MEDS: estradioL 1 MG TABLET PO (08:22)
[2022-05-01] MEDS: ENOXAPARIN 40 MG/0.4 ML SYRINGE SUB-Q (08:22)
[2022-05-01] MEDS: CEPHALEXIN 500 MG CAPSULE PO (08:23)
[2022-05-01] MEDS: ACETAMINOPHEN 500 MG TABLET 1000 MG PO ×3 (08:23→16:37)
[2022-05-01] MEDS: CALCIUM CARBONATE (OSCAL) 500 MG TABLET PO ×2 (08:23→16:37)
[2022-05-01] MEDS: SENNA/DOCUSATE SODIUM TABLET 2 TAB PO ×2 (08:23→16:37)
--- NOTE | 2022-05-01 08:24 | PM.PNORT ---
Progress Note: A&P Assessment and Plan (1) Fracture of hip: Code(s): S72.009A - Fracture of unspecified part of neck of unspecified femur, initial encounter for closed fracture Status: Acute Assessment and Plan: POD #2 Left Bipolar hemiarthroplasty. Patient tolerated procedure well. Pain difficult to control. Patient states she has severe pain at rest and with ambulating. She states she is unable to lift her leg on her own. Will get an xray to rule out dislocation. No new numbness or tingling. Patient has a significant fall history.? Significant skin excoriations increase risk of postoperative infection.? History of UTIs.? HIV in remission.? History of hep C. Will extend patient's antibiotic postoperatively. Typically lives at home by herself. I recommend SNF or rehab at discharge. Ortho instructions: D/C to SNF/rehab Follow up in office in 4 weeks with xrays. Wound Care: Remove Mepilex dressing at 7 days post op. Remove steristrips at 14 days post op. May shower. No soaking. PT: Weight bearing as tolerated with a walker. DVT prophylaxis: continue Lovenox for 30 days total Antibiotic: Keflex BID for 10 days total. Subjective Subjective Date/Time Seen: 05/01/22 08:24 Interval history: Patient resting comfortably in bed. She notes severe pain at rest and with ambulating. Pain not controlled with paint medications. Also complaining of nausea. No other complaints. Review of Systems Review of Systems: All systems reviewed & are unremarkable except as noted in HPI and below Exam Narrative: Normal weight 61 y/o female. Resting comfortably in bed. Wearing compression socks bilaterally. Dressing dry and intact with no drainage. Moderate swelling. No edema. No ecchymosis. No erythema. No hematoma. Range of motion limited due to pain. She is unable to flex her hip or lift her leg. Not tolerating passive range of motion due to pain. Calf mildly tender. Thigh mildly tender. No varicosities. Distal pulses palpable. Wiggles toes. Objective Data Vital Signs Vital Signs: Vital Signs - 24 hr 04/30/22 09:46 04/30/22 10:05 04/30/22 10:00 Temperature 99.5 F Pulse Rate 96 Respiratory Rate 18 Blood Pressure 154/90 H Pulse Oximetry 97 97 Oxygen Delivery Room Air Room Air 04/30/22 14:05 01/04/23 22:00 05/01/22 02:15 Temperature 97.7 F 98.1 F 97.8 F Pulse Rate 100 107 H 95 Respiratory Rate 18 21 H 20 Blood Pressure 100/74 104/75 100/66 Pulse Oximetry 97 100 99 Oxygen Delivery 05/01/22 06:00 Temperature 97.3 F L Pulse Rate 103 H Respiratory Rate 21 H Blood Pressure 134/94 H Pulse Oximetry 100 Oxygen Delivery Intake/Output Intake/Output: Intake & Output 04/28/22 04/29/22 04/30/22 05/01/22 23:59 23:59 23:59 23:59 Intake Total 1960 2470 1790 300 Output Total 300 3700 950 Balance 1660 -1230 840 300 Meds/Results Medications: Active Medications Generic Name Dose Route Start Last Admin Trade Name Freq PRN Reason Stop Dose Admin Acetaminophen 1,000 mg 04/30/22 09:00 04/30/22 17:03 Acetaminophen 500 Mg Tablet PO 1,000 mg TID SHAKIRA Administration Hydrocodone Bitart/Acetaminophen 1 tab 04/27/22 08:43 05/01/22 05:52 Hydrocodone/Acetaminophen (*Crx) 5-325 Mg Tablet PO 1 tab Q4H PRN Administration Pain Rated 4-6 Calcium Carbonate 500 mg 05/01/22 08:00 Calcium Carbonate (Oscal) 500 Mg Tablet PO BIDWM [facility] Cephalexin HCl 500 mg 04/30/22 21:00 04/30/22 20:34 Cephalexin 500 Mg Capsule PO 500 mg Q12HR SHAKIRA Administration Cyclobenzaprine HCl 10 mg 04/29/22 16:20 05/01/22 00:09 Cyclobenzaprine Hcl 10 Mg Tablet PO 10 mg Q8H PRN Administration Muscle Spasm Enoxaparin Sodium 40 mg 04/30/22 09:00 04/30/22 09:32 Enoxaparin 40 Mg/0.4 Ml Syringe SUB-Q 40 mg DAILY SHAKIRA Administration Estradiol 1 mg 04/28/22 09:00 04/30/22 10:43 Estradiol 1 Mg Tablet PO 1 mg DAILY SHAKIRA Administration Famotidi
--- NOTE | 2022-05-01 13:58 | PCPTNOTE ---
Attempted to see patient for PT for left lower extremity hip exercises, however patient refused. Patient reported she did not feel good.
[2022-05-01 14:00] VITALS: BP 97/60; PULSE 106; RESP 18; TEMP 37.3; O2SAT 97
[2022-05-01 14:17] LABS: Absolute CD4 Count 22 cells/uL (490-1740); Lymphocytes, Absolute 318 cells/uL (850-3900); Percent CD4 Cells 7 % (30-61)
--- NOTE | 2022-05-01 16:24 | PM.DS ---
DS: Admitting Diagnosis Discharge Date 05/01/2022 Admitting Diagnosis left hip fracture DS: Discharge Diagnosis Discharge Diagnosis (1) Fracture of hip: Code(s): S72.009A - Fracture of unspecified part of neck of unspecified femur, initial encounter for closed fracture Status: Acute Assessment and Plan: Secondary to fall. X-ray revealed displaced subcapital fracture of the left femoral neck. Seen in consultation by Orthopedic surgery. Underwent left hip bipolar hemiarthroplasty on 04/29/2022. Tolerated procedure well. Patient will continue Lovenox injections for 30 days and Keflex for 10 days per Orthopedic surgery recommendations. Analgesics provided. Follow-up with Orthopedic surgery as an outpatient (2) Anemia: Code(s): D64.9 - Anemia, unspecified Status: Chronic Assessment and Plan: Chronic anemia likely related to CKD. H&H with slight decline postoperatively but remained stable with no active blood loss. Repeat H&H on 05/05/2022 at nursing facility to ensure remaining stable (3) Electrolyte abnormality: Code(s): E87.8 - Other disorders of electrolyte and fluid balance, not elsewhere classified Status: Acute Assessment and Plan: Hypomagnesemia resolved with supplementation. Hypokalemia resolved with supplementation. Mild hypocalcemia which appears chronic. Started on Oscal 500 mg b.i.d. (4) Human immunodeficiency virus: Code(s): B20 - Human immunodeficiency virus [HIV] disease Status: Acute Assessment and Plan: Patient is not on any therapy for this. HIV-1 RNA copies are elevated. CD4 count is 22. She will need to follow-up with Infectious Disease as an outpatient (5) Hypothyroidism: Code(s): E03.9 - Hypothyroidism, unspecified Status: Chronic Assessment and Plan: TSH is >100.00 with low free T4. Suspect noncompliance to medication regimen therefore no changes made to current dose as patient isasymptomatic. Continue levothyroxine at 150 mcg daily. Repeat TSH with reflex in 4 weeks as an outpatient (6) Chronic kidney disease, stage 3: Code(s): N18.30 - Chronic kidney disease, stage 3 unspecified Status: Acute Assessment and Plan: Renal function consistent with baseline. DS: Summary Hospital Course Hospital Course: Date of admission: 04/27/2022 Date of discharge: 05/01/2022 Yashira Vazquez is a 61-year-old female with a history of CKD, depression, HIV, hepatitis-C, hypertension, hypothyroidism, and seizures who presented to the emergency department on 04/27/2022 after suffering a fall at home and landing on her left hip. On presentation to the ED, her vital signs are stable, she was afebrile, noted to mildly pancytopenic, potassium 3.2, creatinine 1.4, COVID and influenza negative, head CT revealed no acute findings, and hip/pelvis x-ray revealed displaced subcapital fracture of the left femoral neck. Patient was admitted to the hospitalist service for further evaluation and management was seen in consultation by Orthopedic surgery. Please see above for further details. Patient underwent surgical repair on 04/29/2022 and tolerated the procedure well. She will follow-up with Orthopedic surgery as an outpatient. She participated in PT/OT during admission will continue therapy at SNF. SNF placement was arranged per care coordination and patient was discharged in hemodynamically stable condition on 05/01/2022. She will have outpatient H&H and will follow-up with orthopedic surgery, PCP, an infectious disease. Discussed with the patient worrisome signs and symptoms for which to return. Time Spent with Patient Time attestation: Total time spent providing and/or coordinating discharge services: 45 minutes Time spent: Greater than 30 minutes Exam Narrative: \General: well-nourished well-appearing 58-year-old female, sitting up in a chair, comfortable, NARD Neuro: awake,
[2022-05-01 17:03] LABS: EDCOVIDSCREEN Negative (Negative)
== END 2022-05-01 18:15 | DRG 522 ==
LOC: ANHED 08:48 → ANH2MED 04-28 16:37
PROVIDERS: Emergency Medicine; Nurse Practitioner; Orthopaedic Surgery; Physician Assistant Surgical; Admitting Provider Chiropractor; Emergency Provider Emergency Medicine; PCP Physician Assistant; Visit Provider Physician Assistant
PROC: 0SRS03Z Replacement of Left Hip Joint, Femoral Surface with Ceramic Synthetic Substitute, Open Approach (ICD-10-PCS; CPT 27125; principal; 2022-04-29 13:30)
DX: S72.012A Unspecified intracapsular fracture of left femur, initial encounter for closed fracture (principal); B20 Human immunodeficiency virus [HIV] disease; W01.0XXA Fall on same level from slipping, tripping and stumbling without subsequent striking against object, initial encounter; D63.1 Anemia in chronic kidney disease; E03.9 Hypothyroidism, unspecified; I12.9 Hypertensive chronic kidney disease with stage 1 through stage 4 chronic kidney disease, or unspecified chronic kidney disease; N18.30 Chronic kidney disease, stage 3 unspecified; Z20.822 Contact with and (suspected) exposure to COVID-19; M19.90 Unspecified osteoarthritis, unspecified site; E87.8 Other disorders of electrolyte and fluid balance, not elsewhere classified; F41.9 Anxiety disorder, unspecified; F32.A Depression, unspecified; J32.9 Chronic sinusitis, unspecified; Z96.653 Presence of artificial knee joint, bilateral; Z90.49 Acquired absence of other specified parts of digestive tract; Z90.710 Acquired absence of both cervix and uterus; Z86.19 Personal history of other infectious and parasitic diseases
CPT/HCPCS: 36415; 70450; 71045; 73502; 80048; 80053; 81001; 82607; 82728; 82746; 83540; 83550; 83605; 83735; 84100; 84439; 84443; 84466; 85014; 85018; 85025; 85027; 85055; 85610; 85730; 86361; 86592; 86850; 86900; 86901; 87040; 87086; 87088; 87426; 87536; 87636; 93005; 96365; 96375; 97110; 97161; 97166; 97530; 99285; A9270; C1776; C9803; J0131; J0171; J0690; J1100; J1170; J1650; J2270; J2370; J2405; J2704; J2795; J3010; J3475; J7030; J7040; J7120

== ENCOUNTER 2022-05-28 14:33 | Emergency (ER) | payer MEDICARE, MEDICAID, SELFPAY ==
[2022-05-28] VITALS (22 sets, daily range): BP systolic 92–129; BP diastolic 74–91; PULSE 78–123; RESP 11–23; TEMP 36.6; O2SAT 95–100
--- NOTE | ~2022-05-28 | CT_ITS ---
EXAMINATION: CT abdomen pelvis w con DATE: 05/28/2022 18:47 INDICATION: Gastrointestinal hemorrhage. Rectal inflammation. TECHNIQUE: Computed tomography (CT) of the abdomen and pelvis was performed with 100 mL Omnipaque 350 intravenous contrast. Automated exposure control and iterative reconstruction technique were employe d. The dose-length product was 289.84 mGy-cm. COMPARISON: Chest CT 07/08/2021, CT abdomen and pelvis 11/10/2003, CT lumbar spine 05/02/20 FINDINGS: The visualized portions of the lung bases demonstrate minimal atelectasis. There is a right posterior diaphragmatic hernias containing fat. No pleural effusion. The heart size is normal. No pe ricardial effusion. There is a moderate-sized sliding hiatal hernia. There are cysts in the liver deidra suring up to 8 mm . There are changes of cholecystectomy. The spleen, pancreas, adrenal glands, and r ight kidney are normal. There are parenchymal calcifications in left kidney. The bladder is distended . Gas in the bladder lumen may be from recent instrumentation. There are no dilated loops of bowel. T he appendix is not visualized. There are no pathologically enlarged lymph nodes. There is no free int raperitoneal fluid. There is a penetrating atherosclerotic ulcer of abdominal aorta with thickening a nd hyperdensity of the aortic wall, consistent with intramural hematoma. There is a bipolar left hip hemiarthroplasty. There is mild lumbar spondylosis. There are old fractures of T12, L2, L3, L4, and L 5 vertebral bodies. IMPRESSION: 1. Penetrating atherosclerotic ulcer and intramural hematoma involving abdominal aorta, new from . 2. Moderate-sized sliding hiatal hernia. Reviewed, dictated and finalized at location A. ER OPERATOR IMPRESSION: 1. Penetrating atherosclerotic ulcer and intramural hematoma involving abdomina l aorta, new from 05/02/20. 2. Moderate-sized sliding hiatal hernia.
--- NOTE | ~2022-05-28 | CT_ITS ---
EXAMINATION: CT brain wo con DATE: 05/28/2022 17:21 INDICATION: Agitation. Confusion. TECHNIQUE: Computed tomography (CT) of the head was performed without intravenous contrast. The mA wa s adjusted according to patient size. Iterative reconstruction technique was employed. The dose-lengt h product was 605.33 mGy-cm. COMPARISON: Head CT 04/27/2022 FINDINGS: There are scattered areas of low attenuation in the cerebral white matter. There is no intr acranial hemorrhage, acute infarction, or abnormal intracranial mass lesion. The ventricles are ramin l in size. There is mucosal thickening in the left sphenoid and posterior left ethmoid sinuses with t hickening and sclerosis of the [place] of the sinuses, consistent with chronic sinusitis. There is mild mucosal thickening in the right ethmoid sinuses. The orbits are normal. The mastoid air cells are no rmal. IMPRESSION: 1. Mild nonspecific cerebral white matter disease, which likely represents chronic small vessel ische hiram disease. 2. Chronic sinusitis. Reviewed, dictated and finalized at location A. RUMENTATION SUPERVISOR IMPRESSION: 1. 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 2. Chronic sinusitis.
--- NOTE | ~2022-05-28 | XR_ITS ---
EXAMINATION: XR hip RT min 3V w AP pelvis DATE: 05/28/2022 17:27 INDICATION: Right hip pain. Fall. TECHNIQUE: An anteroposterior view of the pelvis and 3 views of right hip were obtained. COMPARISON: Pelvis and left hip radiographs 05/01/2022 FINDINGS: There is a bipolar left hip hemiarthroplasty in near-anatomic alignment. No fracture. No pe riprosthetic lucency to suggest loosening or infection. There is mild right hip osteoarthritis. There is moderate lumbar spondylosis. IMPRESSION: 1. Mild right hip osteoarthritis. 2. Bipolar left hip hemiarthroplasty in near-anatomic alignment. Reviewed, dictated and finalized at location A. AND TEST SUPERVISOR
--- NOTE | 2022-05-28 15:18 | ECG_ITS ---
Measurements Intervals [place] Rate: 109 P: 79 MI: 165 QRS: 46 QRSD: 76 T: 70 QT: 312 QTc: 421 Interpretive Statements SINUS TACHYCARDIA OTHERWISE NORMAL ECG COMPARED TO ECG 04/27/2022 06:28:20 SINUS TACHYCARDIA NOW PRESENT Electronically Signed On 05-29-2022 10:02:22 [facility] by Oskar Duke M.D.
[2022-05-28 16:27] LABS: Basophils Percent Auto 0.4 % (0.2-1.2); Eosinophils Absolute Auto 0.1 K/mm3 (0-0.3); Eosinophils Percent Auto 1.6 % (0-4.4); Hematocrit 23.7 % (37.0-47.0); Hemoglobin 7.6 g/dL (12.0-15.0); Immature Granulocyte Absolute 0.05 K/mm3 (0.00-0.031); Lymphocytes Absolute Auto 0.59 K/mm3 (0.9-3.2); Lymphocytes Percent Auto 11.8 % (18.3-44.2); Mean Corpuscular HGB Conc 32.1 g/dl (32-36); Mean Corpuscular Hemoglobin 28.3 pg (26-34); Mean Corpuscular Volume 88.1 fl (80-100); Mean Platelet Volume 9.1 fl (7.4-10.4); Monocytes Absolute Auto 0.5 K/mm3 (0.1-0.6); Monocytes Percent Auto 9.2 % (2.6-8.5); Neutrophils Absolute Auto 3.8 K/mm3 (1.3-6.7); Platelet Count Result 296 k/mm3 (150-375); Red Blood Count 2.69 M/mm3 (4.2-5.4); Red Cell Distribution Width 14.2 % (11.5-14.5)
[2022-05-28 16:36] LABS: Alanine Aminotransferase 13 U/L (6-35); Albumin Level 3.7 g/dL (3.5-5.1); Alkaline Phosphatase 97 U/L (38-126); Anion Gap 6 mmol/L (8-16); Aspartate Amino Transferase 27 U/L (14-36); Bilirubin,Total 0.4 mg/dL (0.2-1.3); Blood Urea Nitrogen 20 mg/dL (7-17); Calcium 8.8 mg/dL (8.4-10.2); Carbon Dioxide 29 mmol/L (22-30); Chloride 101 mmol/L (98-107); Estimated CRCL calculation 55 ml/min; Estimated Glomerular Filt Rate 56; Glucose 96 mg/dL (65-110); Potassium 3.8 mmol/L (3.4-5.0); Sodium 136 mmol/L (137-145)
[2022-05-28 16:40] LABS: Partial Thromboplastin Time 38.7 SECONDS (22.3-36.8); Prothrombin Time 12.9 Seconds (11.1-14.7)
--- NOTE | 2022-05-28 17:22 | ED.AMS ---
HPI - Altered Mental Status General Chief Complaint: Altered Mental Status <Breana Cullen PA-C - Last Filed: 05/28/22 20:25> Stated Complaint: agitation <Breana Cullen PA-C - Last Filed: 05/28/22 20:25> Time Seen by Provider: 05/28/22 15:18 <Breana Cullen PA-C - Last Filed: 05/28/22 20:25> Source: patient and EMS <Breana Cullen PA-C - Last Filed: 05/28/22 20:25> Mode of arrival: EMS <UNIQUE Sousa Last Filed: 05/28/22 20:25> Limitations: no limitations <UNIQUE Sousa Last Filed: 05/28/22 20:25> History of Present Illness HPI narrative: This is a 61-year-old female that presents to the emergency department for agitation. Patient was sent from her [facility] due to being agitated and combative with staff today. She has no complaints currently other than being hungry. Reports she has not been wanting to eat or drink much the last couple of days and has been generally unwell. Denies fever, cough, chest pain, shortness of breath, abdominal pain, vomiting, or dysuria. <Breana Cullen PA-C - Last Filed: 05/28/22 20:25> Related Data Home Medications: Home Medications Medication Instructions Recorded Confirmed acetaminophen 500 mg capsule 1,000 mg PO Q6H PRN Pain (Scale 05/02/20 04/27/22 Score 1-3) estradiol 1 mg tablet (Estrace) 1 mg PO DAILY 05/02/20 04/27/22 levothyroxine 150 mcg tablet 150 mcg PO DAILY 05/02/20 04/27/22 cyclobenzaprine 10 mg tablet 10 mg QPM PRN Muscle Spasm 10/07/20 04/27/22 <UNIQUE Sousa Last Filed: 05/28/22 20:25> Allergies/Adverse Reactions: Allergies Allergy/AdvReac Type Severity Reaction Status Date / Time latex Allergy Mild Rash, Verified 07/17/21 03:38 VOMITTING Sulfa (Sulfonamide Allergy Mild HIVES, Verified 07/17/21 03:38 Antibiotics) RASH, VOMITTING morphine AdvReac Unknown Nausea and Verified 07/17/21 03:38 Vomiting <Breana Cullen PA-C - Last Filed: 05/28/22 20:25> Review of Systems Review of Systems: CONSTITUTIONAL: Denies fever EYES: Denies visual changes CARDIOVASCULAR: Denies chest pain, or edema. RESPIRATORY: Denies cough or dyspnea. GASTROINTESTINAL: Denies abdominal pain, nausea, vomiting GENITOURINARY: Denies dysuria NEUROLOGIC: Denies numbness, or weakness. <Breana Cullen PA-C - Last Filed: 05/28/22 20:25> All systems reviewed & are unremarkable except as noted in HPI and below <Breana Cullen PA-C - Last Filed: 05/28/22 20:25> [facility] Past Medical History Medical History: Medical History (Updated 05/29/22 @ 00:00 by Gus Laboy) Anemia Anxiety Arthritis Chronic back pain Chronic kidney disease, stage 3 Baseline creatinine ranges between 1.1 and 1.40. Depression Depression Hepatitis C HIV (human immunodeficiency virus infection) Human immunodeficiency virus Hypertension Hypothyroidism Migraine headache Nephrolithiasis Seizure X2. <Breana Cullen PA-C - Last Filed: 05/28/22 20:25> Surgical History Surgical History: Surgical History (Updated 05/23/22 @ 15:51 by Kasey Jin MA) History of appendectomy History of bilateral knee replacement History of cholecystectomy History of hemiarthroplasty of left hip (~04/29/22) Left hip bipolar hemiarthroplasty. History of hysterectomy <Breana Cullen PA-C - Last Filed: 05/28/22 20:25> Family History Family History: Family History Father Cerebrovascular accident Acute myocardial infarction Mother Cerebrovascular accident Acute myocardial infarction Mother No problems noted. <Breana Cullen PA-C - Last Filed: 05/28/22 20:25> Social History Social History: Social History (Updated 04/27/22 @ 15:05 by Lisa Mckeon NP) Social History: The patient lives in a townhouse in [place]. She is not currently working. She has 2 grown children, a son and a daughter, but they do
[2022-05-28] MEDS: SODIUM CHLORIDE 0.9% IV 1,000 ML 999 ML IV CONT (18:18)
[2022-05-28 18:25] LABS: Appearance Urine Clear (Clear); Bilirubin Urine Negative (Negative); Blood Urine Negative (Negative); Color Urine Yellow (Yellow); Glucose Urine UA Negative (Negative); Ketones Urine Negative (Negative); Leukocyte Esterase Ur Negative LEU/UL (Negative); Nitrate Urine Negative (Negative); Protein Urine 2+ mg/dL (Negative); Specific Grav Ur 1.015 (1.001-1.035); Urobilinogen Urine 0.2 mg/dL (<2.0)
[2022-05-28 18:42] LABS: Amphetamine Screen Urine Negative (Negative); Barbiturate Screen Urine Negative (Negative); Benzodiazepines Screen Urine Positive (Negative); Cannabinoid Screen Urine Positive (Negative); Cocaine Screen Urine Negative (Negative); Methadone Screen Urine Negative (Negative); Opiate Screen Urine Positive (Negative); Phencyclidine Screen Urine Negative (Negative)
[2022-05-28 18:45] LABS: Bacteria Urine Trace /hpf; Mucus Urine Rare /lpf; Squamous Epithelial Cell Urine Occasional /hpf (Few)
[2022-05-28 18:47] LABS: Add Urine Microscopic? YES
[2022-05-28] MEDS: PANTOPRAZOLE SODIUM IV 40 MG VIAL IV PUSH (18:56)
[2022-05-28 18:59] LABS: Ethanol < 10 mg/dL (<10)
--- NOTE | 2022-05-28 19:53 | PC.NURSE ---
Report called to Brianna TOWNSEND at [facility] ED
[2022-05-28] MEDS: LORazepam INJ (*CRX) 2 MG/ML VIAL 0.5 MG IV PUSH (20:19)
[2022-05-28 20:39] LABS: Influenza A QL RT-PCR Negative (Negative); Influenza B QL RT-PCR Negative (Negative); SARS-CoV-2 RNA PCR Negative
== END 2022-05-28 20:34 | disposition short-term general hospital (02) ==
PROVIDERS: Physician Assistant; Emergency Provider Emergency Medicine; PCP Physician Assistant
DX: I71.40 Abdominal aortic aneurysm, without rupture, unspecified (principal); R90.82 White matter disease, unspecified; Z20.822 Contact with and (suspected) exposure to COVID-19; D64.9 Anemia, unspecified; F41.9 Anxiety disorder, unspecified; M19.90 Unspecified osteoarthritis, unspecified site; I12.9 Hypertensive chronic kidney disease with stage 1 through stage 4 chronic kidney disease, or unspecified chronic kidney disease; N18.30 Chronic kidney disease, stage 3 unspecified; F32.9 Major depressive disorder, single episode, unspecified; B20 Human immunodeficiency virus [HIV] disease; E03.9 Hypothyroidism, unspecified
CPT/HCPCS: 36415; 51701; 70450; 73502; 74177; 80053; 80307; 81001; 85025; 85610; 85730; 86850; 86900; 86901; 87086; 87636; 93005; 96361; 96365; 96375; 99285; C9113; J0131; J2060; J7030; Q9967